=== PATIENT | male | born 1940 | race Caucasian/White ===

== ENCOUNTER 2016-10-09 07:56 | Inpatient (IN) | payer MEDICARE, BC ==
[~2016-10-09 07:56] MED LIST: Bacitracin IV* 50,000 UNITS INJ ONE; Buffered Lidocaine 0.9% SYRIN* 5 ML/SYR SYRINGE INTRADERM ONE; Dexamethasone IV* 4 MG/ML 1 ML (4 MG) IV SLOW PU ONE; Famotidine IV* 10 MG/ML 2 ML (20 mg) IV ONE; Lidocaine 1.5% EPI 1:200,000* 30 ML SDV ONE; Thrombin 5,000 UNITS* 1 APPLIC KIT - topical use - TOPICAL ONE
[2016-10-09] MEDS ORDERED: ceFAZolin 2 GM PREMIX(*) 2 GM/50 ML BAG IVPB ONE (08:17)
[2016-10-09] MEDS ORDERED: Dexamethasone IV* 4 MG/ML 1 ML (4 MG) ONE (08:17)
[2016-10-09] MEDS ORDERED: Famotidine IV* 10 MG/ML 2 ML (20 mg) ONE (08:17)
[2016-10-09] MEDS ORDERED: Buffered Lidocaine 0.9% SYRIN* 5 ML/SYR SYRINGE ONE (08:17)
[2016-10-09] MEDS ORDERED: Succinylcholine* 20 MG/ML 10 ML VIAL ONE (10:52)
[2016-10-09] MEDS ORDERED: Lidocaine 1% INJ* 10 MG/ML 30 ML SDV ONE (10:52)
[2016-10-09] MEDS ORDERED: Propofol* 10 MG/ML 20 ML BTL IV PUSH ONE (10:56)
[2016-10-09] MEDS ORDERED: Ondansetron INJ* 2 MG/ML VIAL ONE (10:56)
[2016-10-09] MEDS ORDERED: fentaNYL* 50 MCG/ML 2 ML VIAL (100 MCG VIAL) ONE (11:02)
[2016-10-09] MEDS ORDERED: Midazolam* 1 MG/ML 2 ML VIAL (2 MG) ONE (11:02)
[2016-10-09] MEDS ORDERED: DiMENhydriNATE IV* 50 MG/ML VIAL IV PUSH PRN (12:09)
[2016-10-09] MEDS ORDERED: fentaNYL* 50 MCG/ML 2 ML VIAL (100 MCG VIAL) IV PRN (12:09)
[2016-10-09] MEDS ORDERED: Phenylephrine IV* 40 MCG/ML 10 ML SYRINGE ONE (12:28)
[2016-10-09] MEDS ORDERED: EPHEDrine (Pressors)* 50 MG/ML VIAL ONE (12:28)
[2016-10-09] MEDS ORDERED: Glycopyrrolate IV* 0.2 MG/ML 1 ML VIAL ONE (12:28)
[2016-10-09] MEDS ORDERED: Thrombin 5,000 UNITS* 1 APPLIC KIT - topical use - TOPICAL ONE (12:33)
[2016-10-09] MEDS ORDERED: HYDROcodone/ACETAMIN 5-325 MG* 1 TAB PO PRN (12:55)
[2016-10-09] MEDS ORDERED: Ondansetron INJ* 2 MG/ML VIAL IV PRN (12:55)
[2016-10-09] MEDS ORDERED: Albuterol HFA INHALER* 8 gm MDI INH PRN (13:00)
[2016-10-09] MEDS ORDERED: Albuterol 2.5 MG/3 ML NEB.SOL* (0.083%) INH PRN (14:29)
--- NOTE | 2016-10-09 14:49 | RAD ---
INDICATION: Operative control films. Lumbar laminectomy L1-L2 COMPARISON: MRI lumbar spine August 28, 2016 TECHNIQUE/FINDINGS: 2 lateral images obtained with crosstable lateral technique show retractors and a metallic probe at the L1-L2 level.
[2016-10-09] MEDS ORDERED: Torsemide TAB* 20 MG PO SCH (18:00)
[2016-10-09] MEDS: Atorvastatin* 80 MG TAB PO SCH (18:16)
[2016-10-09] MEDS: Albuterol/Ipratropium NEB.SOL* Albuterol 2.5 MG/Ipratropium 0.5 MG 3 ML INH SCH ×3 (18:19→23:17)
--- NOTE | 2016-10-09 22:12 | CONS ---
CC: Dr. Fong; Dr. Mendoza * CONSULTATION REPORT: DATE OF CONSULT: 10/09/16 PRIMARY CARE PROVIDER: Dr. Fong. REQUESTING PHYSICIAN FOR CONSULTATION: Dr. Mendoza. ATTENDING PHYSICIAN: Dr. Lawson (dictated by Luis Mederos NP) REASON FOR MEDICAL CONSULTATION: Evaluation and medical management of comorbid medical conditions. HISTORY OF PRESENT ILLNESS: Mr. Benjamin is a 75-year-old male patient who has had chronic back pain for sometime. He sought care with Dr. Mendoza and ultimately it was felt that he would benefit from a decompressive laminectomy, which he underwent today. He underwent an L1-L2 laminectomy. He was evaluated in the PACU. He does not appear to be in acute distress. He says he is feeling well. He denies having any chest pain or shortness of breath. Denies any abdominal discomfort. He says he does not feel nauseous. He states he just feels a little drowsy. Last thing he remembers was going through the big doors into the OR. He denies having any shortness of breath and he said he is pretty comfortable, not having any back pain. He does carry a history of CAD, diastolic heart failure, hypertension, hyperlipidemia, JULIANE, hypothyroidism, chronic back pain, spinal stenosis, lymphedema, CKD and a history of COPD. Because of this, we were asked to evaluate and consult. PAST MEDICAL HISTORY: Significant for: 1. CAD. 2. CHF. 3. Hypertension. 4. Hyperlipidemia. 5. JULIANE. 6. Hypothyroidism. 7. Chronic back pain. 8. Spinal stenosis. 9. Lymphedema. 10. CKD. 11. Questionable history of COPD. PAST SURGICAL HISTORY: 1. He has had a CABG. 2. Laminectomy. 3. Tonsillectomy. 4. Kidney stone extraction. HOME MEDICATIONS: Include: 1. Amlodipine 10 mg daily. 2. Demadex 40 mg at bedtime, 60 mg in the morning. 3. Crestor 40 mg a day. 4. Metoprolol 50 mg p.o. daily. 5. Lisinopril 20 mg daily. 6. Synthroid mcg daily. 7. Aspirin 81 mg daily. 8. Ventolin 1 puff inhaled every 6 hours as needed. 9. Tylenol 500 mg every 8 hours as needed. ALLERGIES TO MEDICATIONS: Include MORPHINE. FAMILY HISTORY: His mother had a history of colon cancer, at 95. Father at 57 of unknown reason. SOCIAL HISTORY: He does not smoke, does not drink. Surrogate decision maker is . REVIEW OF SYSTEMS: There is no documented fever. He denied having any significant weight change. There was no double vision. He denies having any ear discharge. There was no rhinorrhea. No sore throat. No thyroid enlargement. Denies having any chest pain. There is no orthopnea. He denies having any nocturnal dyspnea. There was no abdominal pain, no nausea, no vomiting. There is no dysuria, no frequency. There is no seizure. No loss of consciousness. No pruritus, no skin ulcerations. Review of 14 systems completed, all others negative. PHYSICAL EXAMINATION: Blood pressure 140/67, pulse 69, respirations 16, O2 sat 96%, and temperature 98.8. General: At this time, Mr. Benjamin is a 75-year-old male patient. He is morbidly obese. He is sitting in the PACU. He does not appear to be in any acute distress. HEENT: Head is atraumatic and normocephalic. Eyes: EOMs are intact. Sclerae anicteric. Neck: Supple. Throat: Oral mucosa appeared to be dry. No oropharyngeal erythema. Heart: Sounds S1, S2. Regular rate and rhythm. No murmurs, rubs, or gallops. Lungs: He did have wheezing in the lower lobes. He had equal diaphragmatic expansion. His abdomen was soft, flat, nontender. Bowel sounds present. Extremities: Pulses 2+ throughout. He is able to move all 4 extremities with 5 /5 strength. Neurologically, the patient is awake. He is alert. He is oriented x3. His tongue is midline. Nuclear Physician were equal. He had no gross focal deficits. The skin is intact with exception to the lower lumbar spinal area, he did have a dressing and a RUSH drain, which is clean, dry, and intact. LABORATORY DATA/DIAGNOSTIC STUDIES: Labs preop revealed WBC 9.1, RBC of 3.99, hemoglobin 11.6, hematocrit 35, platelet count of 157. His sodium was 139, potassium 4.7, chloride of 105, bicarb 28, BUN 30, creatinine of 1.43, right near his baseline, glucose was 82. He did have a preop echo, which was read as unchanged from previous echo. He did have an EKG, which showed a sinus rhythm with a first degree AV block and he had what appeared to be a left bundle-branch block, appears to be similar when compared to the previous EKGs. It appears to be similar with the exception that there is no longer T wave inversions. Old medical records were reviewed. ASSESSMENT AND PLAN: Mr. Benjamin is a 75-year-old male patient presenting to Dr. Mendoza's service today for an elective laminectomy. We were asked to evaluate in consult. Recommendations at this point are: 1. Status post laminectomy to L1-L2. I will defer the management to Dr. Mendoza and his team. 2. History of coronary artery disease. Continue his medications as prescribed , his beta-alba and his statin. I would start his aspirin as soon as it is deemed safe by neurosurgical services. 3. Congestive heart failure. He does not appear to be in failure. We will monitor him. I will go ahead and continue his Demadex tomorrow. 4. Hypertension. Continue meds as prescribed. His blood pressure is in the 140s right now. We will continue all meds. 5. Hyperlipidemia. Continue statin therapy. 6. Obstructive sleep apnea. We will put him on pulse ox overnight for 24 hours and then in addition to this, I have ordered a CPAP. 7. Hypothyroidism. Continue Synthroid. 8. Chronic back pain, spinal stenosis. I will defer the management to Dr. Mendoza and his team. 9. Lymphedema. Continue his current medical regimen. He does wear lymphedema pump. 10. Chronic kidney disease. His creatinine appears to be stable. 11. History of chronic obstructive pulmonary disease. I did order standing nebs as he is wheezing on exam and I did order incentive spirometry for aggressive pulmonary toileting. We will continue to follow this closely. 12. DVT prophylaxis. We will defer to the primary team. 13. Fluids, electrolytes, and nutrition. I would recommend a heart healthy diet. 14. Code status. Full code. TIME SPENT: Time spent on consult 60 minutes, greater than half that time was spent [id number] with the patient obtaining my history and physical, the other half time was spent going over plan of care with the patient and implementing the plan of care. I did discuss the plan of care with my attending, Dr. Lwason, who is in agreement. LUIS MEDEROS NP [id number]/[facility] #: [id number] [facility]ENT[facility]st[facility]
[2016-10-10] MEDS: Acetaminophen TAB* 325 MG PO PRN ×3 (01:39→19:03)
[2016-10-10] MEDS: Albuterol/Ipratropium NEB.SOL* Albuterol 2.5 MG/Ipratropium 0.5 MG 3 ML INH SCH ×3 (03:19→11:23)
[2016-10-10] MEDS: Levothyroxine TAB* 25 MCG TAB PO SCH (05:50)
--- NOTE | 2016-10-10 08:06 | PN ---
Progress Note - Progress Note Date of Service: 10/10/16 SOAP: Subjective: [This is a 75 year old male s/p decompressive lumbar laminectomy L1-2, POD #1. He is feeling well this morning. He is ambulating well without pain in the lower extremities. He is eating, drinking and voiding without difficulty. He reports mild discomfort at the incision site. ] Objective: [ Vital Signs: Temp Pulse Resp BP Pulse Ox 97.6 F 88 15 145/73 97 10/10/16 03:29 10/10/16 07:10 10/10/16 07:10 10/10/16 03:29 10/10/16 07:10 General: Alert and oriented. Sitting up in chair. Neuro: Motor and sensory intact. Incision: Intact with eliud. No infection or swelling. RUSH in place. RUSH drain output 10/09/16 10/09/16 10/09/16 14:45 15:00 16:47 Output, RUSH #1 25 10 65 10/09/16 10/09/16 10/09/16 17:51 20:28 21:59 Output, RUSH #1 45 50 50 10/10/16 10/10/16 10/10/16 01:30 03:00 05:52 Output, RUSH #1 60 30 25 ] Assessment: [Satisfactory post-op course. He requires further monitoring for RUSH drain output today. Probable discharge home tomorrow.] Plan: [1. Continue pain management 2. Encourage ambulation ]
[2016-10-10] MEDS: amLODIPine TAB* 5 MG PO SCH (09:22)
[2016-10-10] MEDS: Torsemide TAB* 20 MG PO SCH (09:22)
[2016-10-10] MEDS: Levothyroxine TAB* 100 MCG TAB PO SCH (09:22)
[2016-10-10] MEDS: Aspirin EC Low Dose* 81 MG TAB.EC PO SCH (09:22)
[2016-10-10] MEDS: Metoprolol Succinate XL TAB* 50 MG PO SCH (09:22)
[2016-10-10] MEDS: Lisinopril TAB* 10 MG PO SCH (09:22)
--- NOTE | 2016-10-10 15:04 | PN ---
Subjective Date of Service: 10/10/16 Interval History: Patient seen and examined at bedside. Pt states that his pain is controlled and he is feeling well. Denies fever, chills, shortness of breath, chest discomfort , N/V/D. Family History: Unchanged from Admission Social History: Unchanged from Admission Past Medical History: Unchanged from Admission Objective Active Medications: Acetaminophen (Tylenol Tab*) 650 mg PO Q4H PRN Reason: PAIN Hydrocodone Bitart/Acetaminophen ([place] 5-325 Tab*) 2 tab PO Q4H PRN Reason: marked pain Albuterol (Ventolin Hfa Inhaler*) 1 puff INH Q6H PRN Reason: SHORTNESS OF BREATH Albuterol (Ventolin 2.5 Mg/3 Ml Neb.Radha*) 2.5 mg INH Q2H PRN Reason: SOB/ WHEEZING Amlodipine Besylate (Norvasc Tab*) 10 mg PO QAM REPLACED BY [facility] Aspirin (Aspirin Ec Low Dose*) 81 mg PO QAM REPLACED BY [facility] Atorvastatin Calcium (Lipitor*) 80 mg PO QPM REPLACED BY [facility] Levothyroxine Sodium (Synthroid Tab*) 300 mcg PO QAM REPLACED BY [facility] Levothyroxine Sodium (Synthroid Tab*) 25 mcg PO DAILY@0600 REPLACED BY [facility] Lisinopril (Prinivil Tab*) 20 mg PO QAM REPLACED BY [facility] Metoprolol Succinate (Toprol Xl Tab*) 50 mg PO QAM REPLACED BY [facility] Ondansetron HCl (Zofran Inj*) 4 mg IV Q6H PRN Reason: NAUSEA/VOMITING Torsemide (Demadex*) 60 mg PO QAM REPLACED BY [facility] Torsemide (Demadex*) 40 mg PO QPM REPLACED BY [facility] Vital Signs 10/09/16 10/09/16 10/09/16 15:00 15:20 15:25 Temperature 97.6 F Pulse Rate 70 71 Respiratory 19 16 16 Rate Blood Pressure 157/67 146/65 (mmHg) O2 Sat by Pulse 96 95 Oximetry 10/09/16 10/09/16 10/09/16 16:31 17:31 19:35 Temperature 97.4 F 97.6 F Pulse Rate 75 76 78 Respiratory 18 18 20 Rate Blood Pressure 150/68 145/62 (mmHg) O2 Sat by Pulse 100 95 98 Oximetry 10/09/16 10/09/16 10/09/16 19:38 19:50 21:45 Temperature 97.6 F Pulse Rate 76 77 85 Respiratory 20 18 18 Rate Blood Pressure 149/61 128/86 (mmHg) O2 Sat by Pulse 98 98 95 Oximetry 10/09/16 10/10/16 10/10/16 23:17 00:07 03:20 Temperature 97.9 F Pulse Rate 70 90 77 Respiratory 20 20 20 Rate Blood Pressure 157/63 (mmHg) O2 Sat by Pulse 96 93 94 Oximetry 10/10/16 10/10/16 10/10/16 03:29 07:10 07:19 Temperature 97.6 F 97.9 F Pulse Rate 93 88 87 Respiratory 18 15 16 Rate Blood Pressure 145/73 126/52 (mmHg) O2 Sat by Pulse 97 97 93 Oximetry 10/10/16 10/10/16 08:50 12:04 Temperature 98.0 F Pulse Rate 84 Respiratory 16 14 Rate Blood Pressure 137/60 (mmHg) O2 Sat by Pulse 93 94 Oximetry Oxygen Devices in Use Now: None Appearance: NAD, laying in bed Ears/Nose/Mouth/Throat: Mucous Membranes Moist Respiratory: Symmetrical Chest Expansion and Respiratory Effort, Clear to Auscultation Cardiovascular: NL Sounds; No Murmurs; No JVD, RRR Abdominal: NL Sounds; No Tenderness; No Distention Extremities: - - Bilateral LE edema Skin: No Rash or Ulcers Neurological: Alert and Oriented x 3, NL Muscle Strength and Tone Lines/Tubes/Other Access: Clean, Dry and Intact Peripheral IV - site benign Nutrition: Taking PO's Result Diagrams: 10/09/16 13:14 Assess/Plan/Problems-Billing Assessment: Mr. Benjamin is a 75 yo male with PMH significant for CAD, CHF, HTN, HLD, JULIANE, hypothyroidism, lymphedema, CKD and chronic pain pain secondary to spinal stenosis who presented to the hospital for an elective L1-[address] Mendoza. - Patient Problems (1) Lumbar stenosis Code(s): M48.06 - SPINAL STENOSIS, LUMBAR REGION SNOMED Code(s): 36256223 Comment: - S/P L1-2 laminectomy - Management per surgery - Continue pain management (2) CAD (coronary artery disease) Code(s): I25.10 - ATHSCL HEART DISEASE OF [place] CORONARY ARTERY W/O ANG PCTRS SNOMED Code(s): 96660283 Comment: - Stable. - Continue Aspirin, metoprolol and statin. (3) Diastolic CHF Code(s): I50.30 - UNSPECIFIED DIASTOLIC (CONGESTIVE) HEART FAILURE SNOMED Code (s): 457273427 Comment: - Stable. - Continue Lisinopril and Torsemide. (4) HTN (hypertension) Code(s): I10 - ESSENTIAL (PRIMARY) HYPERTENSION SNOMED Code(s): 23414393 Comment: - Normotensive - Continue amlodipine and lisinopril (5) HLD (hyperlipidemia) Code(s): E78.5 - HYPERLIPIDEMIA, UNSPECIFIED SNOMED Code(s): 82412401 Comment: - Continue statin (6) JULIANE (obstructive sleep apnea) Code(s): G47.33 - OBSTRUCTIVE SLEEP APNEA (ADULT) (PEDIATRIC) SNOMED Code(s): 79869527 Comment: - Continue home CPAP (7) Hypothyroidism Code(s): E03.9 - HYPOTHYROIDISM, UNSPECIFIED SNOMED Code(s): 95502019 Comment: - Continue synthroid (8) Lymphedema Code(s): I89.0 - LYMPHEDEMA, NOT ELSEWHERE CLASSIFIED SNOMED Code(s): 506650934 Comment: - Resume lymphedema pump at discharge (9) CKD (chronic kidney disease) Code(s): N18.9 - CHRONIC KIDNEY DISEASE, UNSPECIFIED SNOMED Code(s): 384040478 Comment: - Stage 3 - Creatinine appears to be at baseline (10) COPD (chronic obstructive pulmonary disease) Code(s): J44.9 - CHRONIC OBSTRUCTIVE PULMONARY DISEASE, UNSPECIFIED SNOMED Code(s): 30601641 Comment: - Albuterol nebs or inhaler PRN - Continue Incentive Spirometer (11) DVT prophylaxis Code(s): HHQ0460 - SNOMED Code(s): 285510084 Comment: - SCDs (12) Full code status Code(s): Z78.9 - OTHER SPECIFIED HEALTH STATUS SNOMED Code(s): 082126297 Status and Disposition: OBV to Inpatient. Disposition per Surgery.
[2016-10-10] MEDS ORDERED: Torsemide TAB* 20 MG PO SCH (18:00)
[2016-10-10] MEDS: Atorvastatin* 80 MG TAB PO SCH (18:05)
[2016-10-11 04:11] VITALS: BP 133/64
--- NOTE | 2016-10-11 04:18 | OP ---
AMENDED REPORT NOW INCLUDES DATE OF OPERATION - ESIGNED BEFORE ADJUSTMENT * DATE OF OPERATION: 10/09/16 - ROOM #333 DATE OF : 36 SURGEON: Nav Mendoza MD STUDENT NURSE: SHANNAN Tay. ANESTHESIOLOGIST: Huang Bob MD ANESTHESIA: General. PRE-OP DIAGNOSIS: Lumbar spinal stenosis, L1-2. POST-OP DIAGNOSIS: Lumbar spinal stenosis, L1-2. OPERATIVE PROCEDURE: Decompressive lumbar laminectomy, L1-2. DESCRIPTION OF PROCEDURE: After satisfactory general anesthesia was obtained, the patient was placed on the operating table in a prone position with the chest supported on the Giorgio frame and the back slightly flexed. The lumbar region was then clipped, prepped, and draped in a sterile manner for a lumbar laminectomy, and a skin incision outlined from L1 to L3. This incision was infiltrated with 1% Xylocaine with epinephrine after which it was turned in sharply to the level of the lumbar fascia. The fascia was divided along the spinous processes of L1 and L2 and the paraspinous musculature stripped away from these posterior elements. An intraoperative x-ray was obtained verifying proper interspace localization after which a decompression was carried out by first removing the spinous processes of L1 and L2 with a Kerrison rongeur. The remaining portion of the base of the spinous process of L1 and inferior aspect of the lamina was then thinned out with a Midas Jimmie drill and a decompression carried out with a Kerrison rongeur. This was carried superiorly until the attachment of the ligamentum flavum was taken down. Epidural venous bleeding was significant and was controlled with temporary Gelfoam. Ultimately, a decompression was carried out until both of the L2 nerve roots were free in their course. The pathology at this level was mostly that of thickened ligamentum and bony hypertrophy. After showing adequate hemostasis, the decompressive defect was covered with Gelfoam after which a drain was placed in the epidural space and tunneled out toward the left side. The fascia was then reapproximated with 0 Vicryl suture and the subcutaneous tissue was closed with 3-0 Vicryl suture, and the skin closed with skin clips. The estimated blood loss was 300 cc, and final sponge, padding, and needle counts were correct. The patient was taken to the recovery room, extubated and in stable condition. [id number]/[facility] #: [id number] ORIGINAL ESIGN DATE/TIME: 10/11/16 0543 MTDD
[2016-10-11] MEDS: Levothyroxine TAB* 25 MCG TAB PO SCH (06:10)
--- NOTE | 2016-10-11 09:06 | PN ---
Progress Note - Progress Note Date of Service: 10/11/16 SOAP: Subjective: []POD # 2 Doing well,up inchair Pain much better Objective: []Drainage decreased,drain removed Wound intact Neuro intact Assessment: []Satis post op course Plan: []D/C today D/C Instructions given
[2016-10-11] MEDS: amLODIPine TAB* 5 MG PO SCH (09:08)
[2016-10-11] MEDS: Torsemide TAB* 20 MG PO SCH (09:09)
[2016-10-11] MEDS: Aspirin EC Low Dose* 81 MG TAB.EC PO SCH (09:09)
[2016-10-11] MEDS: Levothyroxine TAB* 100 MCG TAB PO SCH (09:10)
[2016-10-11] MEDS: Lisinopril TAB* 10 MG PO SCH (09:11)
[2016-10-11] MEDS: Metoprolol Succinate XL TAB* 50 MG PO SCH (09:12)
--- NOTE | 2016-10-11 09:23 | PN ---
Subjective Date of Service: 10/11/16 Interval History: Patient seen and examined at bedside. Pt states that he is feeling well this morning and denies pain. Denies fever, chills, shortness of breath, chest discomfort, N/V/D. Pt has been up and ambulating around in his room. Family History: Unchanged from Admission Social History: Unchanged from Admission Past Medical History: Unchanged from Admission Objective Active Medications: Acetaminophen (Tylenol Tab*) 650 mg PO Q4H PRN Reason: PAIN Hydrocodone Bitart/Acetaminophen ([place] 5-325 Tab*) 2 tab PO Q4H PRN Reason: marked pain Albuterol (Ventolin Hfa Inhaler*) 1 puff INH Q6H PRN Reason: SHORTNESS OF BREATH Albuterol (Ventolin 2.5 Mg/3 Ml Neb.Radha*) 2.5 mg INH Q2H PRN Reason: SOB/ WHEEZING Amlodipine Besylate (Norvasc Tab*) 10 mg PO QAM [facility] Aspirin (Aspirin Ec Low Dose*) 81 mg PO QAM [facility] Atorvastatin Calcium (Lipitor*) 80 mg PO QPM [facility] Levothyroxine Sodium (Synthroid Tab*) 300 mcg PO QAM [facility] Levothyroxine Sodium (Synthroid Tab*) 25 mcg PO DAILY@0600 [facility] Lisinopril (Prinivil Tab*) 20 mg PO QAM [facility] Metoprolol Succinate (Toprol Xl Tab*) 50 mg PO QAM [facility] Ondansetron HCl (Zofran Inj*) 4 mg IV Q6H PRN Reason: NAUSEA/VOMITING Torsemide (Demadex*) 60 mg PO QAM [facility] Torsemide (Demadex*) 40 mg PO QPM [facility] Vital Signs 10/10/16 10/10/16 10/10/16 12:04 15:24 19:13 Temperature 98.0 F 97.8 F Pulse Rate 84 73 Respiratory 14 18 19 Rate Blood Pressure 137/60 140/64 (mmHg) O2 Sat by Pulse 94 94 Oximetry 10/10/16 10/10/16 10/10/16 19:19 19:40 23:28 Temperature 98.0 F 97.9 F Pulse Rate 61 73 65 Respiratory 16 19 20 Rate Blood Pressure 127/50 139/65 (mmHg) O2 Sat by Pulse 94 96 94 Oximetry 10/11/16 10/11/16 04:03 06:11 Temperature 97.6 F Pulse Rate 57 Respiratory 18 15 Rate Blood Pressure 133/64 (mmHg) O2 Sat by Pulse 98 Oximetry Oxygen Devices in Use Now: None Appearance: NAD, sitting up in a chair Eyes: PERRLA Ears/Nose/Mouth/Throat: Mucous Membranes Moist Respiratory: Symmetrical Chest Expansion and Respiratory Effort, Clear to Auscultation Cardiovascular: NL Sounds; No Murmurs; No JVD, RRR Abdominal: NL Sounds; No Tenderness; No Distention Extremities: - - Bilateral LE edema Neurological: Alert and Oriented x 3, NL Muscle Strength and Tone Lines/Tubes/Other Access: Clean, Dry and Intact Peripheral IV - site benign Nutrition: Taking PO's Result Diagrams: 10/10/16 19:39 Assess/Plan/Problems-Billing Assessment: Mr. Benjamin is a 75 yo male with PMH significant for CAD, CHF, HTN, HLD, JULIANE, hypothyroidism, lymphedema, CKD and chronic pain pain secondary to spinal stenosis who presented to the hospital for an elective L1-[address] Mendoza. - Patient Problems (1) Lumbar stenosis Code(s): M48.06 - SPINAL STENOSIS, LUMBAR REGION SNOMED Code(s): 96238128 Comment: - S/P L1-2 laminectomy, POD #2 - Management per surgery - Continue pain management (2) CAD (coronary artery disease) Code(s): I25.10 - ATHSCL HEART DISEASE OF [place] CORONARY ARTERY W/O ANG PCTRS SNOMED Code(s): 67091342 Comment: - Stable. - Continue Aspirin, metoprolol and statin. (3) Diastolic CHF Code(s): I50.30 - UNSPECIFIED DIASTOLIC (CONGESTIVE) HEART FAILURE SNOMED Code (s): 605050351 Comment: - Stable. - Continue Lisinopril and Torsemide. (4) HTN (hypertension) Code(s): I10 - ESSENTIAL (PRIMARY) HYPERTENSION SNOMED Code(s): 36907701 Comment: - Normotensive - Continue amlodipine and lisinopril (5) HLD (hyperlipidemia) Code(s): E78.5 - HYPERLIPIDEMIA, UNSPECIFIED SNOMED Code(s): 95401940 Comment: - Continue statin (6) JULIANE (obstructive sleep apnea) Code(s): G47.33 - OBSTRUCTIVE SLEEP APNEA (ADULT) (PEDIATRIC) SNOMED Code(s): 68217906 Comment: - Continue home CPAP (7) Hypothyroidism Code(s): E03.9 - HYPOTHYROIDISM, UNSPECIFIED SNOMED Code(s): 76420097 Comment: - Continue synthroid (8) Lymphedema Code(s): I89.0 - LYMPHEDEMA, NOT ELSEWHERE CLASSIFIED SNOMED Code(s): 729035429 Comment: - Resume lymphedema pump at discharge (9) CKD (chronic kidney disease) Code(s): N18.9 - CHRONIC KIDNEY DISEASE, UNSPECIFIED SNOMED Code(s): 594876421 Comment: - Stage 3 - Creatinine appears to be at baseline (10) COPD (chronic obstructive pulmonary disease) Code(s): J44.9 - CHRONIC OBSTRUCTIVE PULMONARY DISEASE, UNSPECIFIED SNOMED Code(s): 44076747 Comment: - Albuterol nebs or inhaler PRN - Continue Incentive Spirometer (11) DVT prophylaxis Code(s): NWK8624 - SNOMED Code(s): 467015393 Comment: - SCDs (12) Full code status Code(s): Z78.9 - OTHER SPECIFIED HEALTH STATUS SNOMED Code(s): 260242274 Status and Disposition: Inpatient. Disposition per Surgery. Thank you for this consultation, will sign off at this time.
== END 2016-10-11 10:00 | disposition home or self-care (01) | DRG 516 ==
LOC: OR 07:56 → SSU 12:55 → OBSVTOIN 10-10 14:58
PROVIDERS: ADMIT Neurological Surgery; ATTEND Neurological Surgery
PROC: 01NB0ZZ Release Lumbar Nerve, Open Approach (ICD-10-PCS; principal; 2016-10-10)
DX: M48.06 Spinal stenosis, lumbar region (principal); I13.0 Hypertensive heart and chronic kidney disease with heart failure and stage 1 through stage 4 chronic kidney disease, or unspecified chronic kidney disease; I50.32 Chronic diastolic (congestive) heart failure; J44.9 Chronic obstructive pulmonary disease, unspecified; I25.10 Atherosclerotic heart disease of native coronary artery without angina pectoris; N18.9 Chronic kidney disease, unspecified; Z95.1 Presence of aortocoronary bypass graft; E78.5 Hyperlipidemia, unspecified; G47.33 Obstructive sleep apnea (adult) (pediatric); E03.9 Hypothyroidism, unspecified; M54.9 Dorsalgia, unspecified; Z79.1 Long term (current) use of non-steroidal anti-inflammatories (NSAID); Z79.82 Long term (current) use of aspirin; Z79.899 Other long term (current) drug therapy; Z88.5 Allergy status to narcotic agent; Z80.0 Family history of malignant neoplasm of digestive organs; I44.0 Atrioventricular block, first degree; I44.7 Left bundle-branch block, unspecified
CPT/HCPCS: 36415; 72100; 80048; 85014; 85025; 94640; A9270-GY; G0378; J0330; J0690; J1100; J2001; J2250; J2405; J2704; J3010

== ENCOUNTER 2017-03-11 11:39 | Inpatient (IN) | payer MEDICARE, BC ==
[2017-03-11] MEDS ORDERED: Albuterol 2.5 MG/3 ML NEB.SOL* (0.083%) INH ONE (12:06)
[2017-03-11] MEDS ORDERED: Acetaminophen TAB* 325 MG PO ONE (12:54)
--- NOTE | 2017-03-11 13:47 | RAD ---
HISTORY: Right leg edema, trauma COMPARISONS: None VIEWS: 6, Frontal and lateral views of the right femur FINDINGS: BONE DENSITY: Normal. BONES: There is no displaced fracture. JOINTS: There is osteoarthritis of the right hip and knee. ALIGNMENT: There is no dislocation. SOFT TISSUES: There is extensive soft tissue swelling. OTHER FINDINGS: None. IMPRESSION: NO ACUTE OSSEOUS INJURY. IF SYMPTOMS PERSIST, RECOMMEND REPEAT IMAGING.
--- NOTE | 2017-03-11 13:48 | RAD ---
HISTORY: Right foot pain, trauma COMPARISONS: None VIEWS: 4, Frontal, lateral, and oblique views of the right foot FINDINGS: Study is technically limited. BONE DENSITY: There is diffuse osteopenia. BONES: There is no displaced fracture. There are calcaneal enthesophytes. JOINTS: There is osteoarthritis of the midfoot and forefoot. ALIGNMENT: There is no dislocation. SOFT TISSUES: Unremarkable. OTHER FINDINGS: None. IMPRESSION: 1. LIMITED STUDY. 2. OSTEOPENIA. 3. OSTEOARTHRITIS. 4. NO ACUTE OSSEOUS INJURY. IF SYMPTOMS PERSIST, RECOMMEND REPEAT IMAGING
--- NOTE | 2017-03-11 13:50 | RAD ---
Indication: Fall, hip pain. Single view of the pelvis demonstrates no fracture. The study is extremely limited as the iliac crests are not present on the film. This is likely due to body habitus. IMPRESSION: No fracture of the pelvis is noted although the study is limited.
--- NOTE | 2017-03-11 13:52 | RAD ---
Indication: Right lower leg pain. 2 views of the right lower leg are reviewed. The tibia and fibula are grossly unremarkable. There may be some cortical thickening in the midshaft of the tibia. IMPRESSION: Cortical thickening mid shaft of the tibia. No definite fracture is noted.
--- NOTE | 2017-03-11 13:54 | RAD ---
INDICATION: Trauma. COMPARISON: Comparison is made with a prior chest x-ray study from April 21, 2014. TECHNIQUE: AP and lateral views of the chest were obtained. FINDINGS: The patient is status post coronary artery bypass surgery. Note is made of multiple sternal sutures. The heart appears moderately enlarged. The lungs are hyperinflated and clear. No pleural effusion or pneumothorax is seen. IMPRESSION: POSTSURGICAL CHANGES AND FINDINGS CONSISTENT WITH COPD, NO EVIDENCE FOR ACUTE FINDING.
[2017-03-11] MEDS ORDERED: methylPREDNISolone 125 MG* 2 ML VIAL IV ONE (14:09)
[2017-03-11] MEDS ORDERED: Albuterol/Ipratropium NEB.SOL* Albuterol 2.5 MG/Ipratropium 0.5 MG 3 ML INH ONE (14:13)
[2017-03-11] MEDS ORDERED: Tetan/Diph/Pertus SYR(Tdap)* 0.5 ML SYR(BOOSTRIX) use SYR IM ONE (14:13)
--- NOTE | 2017-03-11 14:18 | RAD ---
INDICATION: RIGHT lower extremity edema. COMPARISON: September 23, 2015 TECHNIQUE: Chanel scale, color Doppler, and spectral analysis of the deep veins of the RIGHT lower extremity. Vessel compression, phasicity, and augmentation assessed. REPORT: The RIGHT common femoral, great saphenous, profunda femoral, femoral, popliteal, and posterior tibial veins are patent. The RIGHT peroneal veins could not be visualized with large body habitus limiting assessment. Patency of the LEFT common femoral vein documented. IMPRESSION: No evidence for RIGHT lower extremity deep venous thrombosis. Exam is mildly limited due to nonvisualization of the peroneal veins.
[2017-03-11 14:50] LABS: INR 1.07 (0.77-1.02)
[2017-03-11 14:51] LABS: ABS Basophils 0.1 10^3/ul (0-0.2); ABS Eosinophils 0.1 10^3/ul (0-0.6); ABS Lymphocytes 1.8 10^3/ul (1.0-4.8); ABS Neutrophils 8.2 10^3/ul (1.5-7.7); ABS Nucleated RBC 0 10^3/ul; Eosinophil % 0.7 % (0-6); Hematocrit 37 % (42-52); Hemoglobin 11.8 g/dl (14.0-18.0); Lymphocyte % 16.1 % (25-47); Mean Corpuscular HGB Conc 32 g/dl (31-36); Mean Corpuscular Hemoglobin 28 pg (27-31); Mean Corpuscular Volume 88 fL (80-94); Mean Platelet Volume 8 um3 (7.4-10.4); Nucleated Red Blood Cells % 0; Platelet Count 196 10^3/ul (150-450); Red Blood Count 4.17 10^6/ul (4.0-5.4); Red Cell Distribution Width 15 % (10.5-15); White Blood Count 11.2 10^3/ul (3.5-10.8)
[2017-03-11 15:03] LABS: EGFR Non-African American 38.9 (>60)
[2017-03-11] MEDS ORDERED: Clindamycin 900 MG IVPREMIX(* 900 MG/50 ML SDV IV ONE (15:47)
[2017-03-11] MEDS ORDERED: Albuterol 2.5 MG/3 ML NEB.SOL* (0.083%) INH PRN (16:36)
[2017-03-11] MEDS ORDERED: Ondansetron INJ* 2 MG/ML VIAL IV PRN (16:36)
--- NOTE | 2017-03-11 16:59 | ED ---
Jarvis Ortiz Tecjoon, scribed for Eduin Cervantes MD on 03/11/17 at 1219 . Lower Extremity - HPI Summary HPI Summary: This patient is a 76 year old BIBA to [facility] accompanied by with a chief complaint of right leg and hip pain s/p a fall at approx. 0930 today. Patient states he tripped and stubbed his right toe and is having trouble walking up stairs. Patient denies LOC or head trauma. Patient has an abrasion on his right toe. The pain is rated 8/10 in severity. Symptoms aggravated by nothing. Symptoms alleviated by nothing. Patient also has a hx of lymphedema in right leg and left arm. Patient additionally reports, wheezing, SOB. The patient states that his leg cannot handle his weight and that he cant lift leg. - History of Current Complaint Chief Complaint: EDExtremityLower Stated Complaint: FALL Time Seen by Provider: 03/11/17 12:11 Hx Obtained From: Patient Mechanism Of Injury: Fall From A Standing Position Onset of Pain: Immediate Onset/Duration: Hours Severity Currently: Severe Pain Intensity: 8 Pain Scale Used: 0-10 Numeric Timing: Constant Location: Is Discrete @ - right hip, right foot Associated Signs And Symptoms: Positive: Negative - LOC, head trauma, Other - abrasion on right toe, wheezing, SOB Aggravating Factor(s): Nothing Alleviating Factor(s): Nothing - Allergies/Home Medications Allergies/Adverse Reactions: Allergies Allergy/AdvReac Type Severity Reaction Status Date / Time Morphine AdvReac Intermediate Altered Verified 12/30/16 14:17 Mental Status Home Medications: Home Medications Aspirin EC Low Dose* [Ecotrin EC Low Dose 81 MG*] 81 mg PO DAILY 03/11/17 [ History Confirmed 03/11/17] Gabapentin CAP(*) [Neurontin 300 CAP(*)] 300 mg PO BID 03/11/17 [History Confirmed 03/11/17] Lisinopril TAB* [Prinivil TAB*] 20 mg PO DAILY 03/11/17 [History Confirmed 03/11] Rosuvastatin (NF) [Crestor (NF)] 40 mg PO QPM 03/11/17 [History Confirmed ] PMH/Surg Hx/FS Hx/Imm Hx Previously Healthy: No Endocrine/Hematology History: Reports: Hx Thyroid Disease Denies: Hx Diabetes Cardiovascular History: Reports: Hx Cardiomegaly, Hx Congestive Heart Failure, Hx Coronary Artery Disease, Hx Deep Vein Thrombosis - BL LEGS, Hx Hypercholesterolemia - HLD, Hx Hypertension, Hx Valvular Heart Disease - AORTIC VALVE Denies: Hx Pacemaker/ICD Respiratory History: Reports: Hx Sleep Apnea - CPAP, Other Respiratory Problems/ Disorders - PLEURAL EFFUSION Denies: Hx Asthma - according to patient, Hx Chronic Obstructive Pulmonary Disease (COPD) - according to patient History: Reports: Hx Kidney Stones Musculoskeletal History: Reports: Hx Arthritis, Hx Back Problems - spinal stenosis, Other Musculoskeletal History - spinal stenosis Sensory History: Reports: Hx Contacts or Glasses Denies: Hx Hearing Aid Opthamlomology History: Reports: Hx Contacts or Glasses Psychiatric History: Denies: Hx Panic Disorder - Cancer History Hx Chemotherapy: No - Surgical History Surgery Procedure, Year, and Place: THOROCENTESIS x 2. CABG 2006. CARDIAC STENT 03/2002. tonsils,. LUMBAR SURGERY 10/23 Hx Anesthesia Reactions: No - Immunization History Date of Tetanus Vaccine: current Date of Influenza Vaccine: 2014 Infectious Disease History: No Infectious Disease History: Denies: Hx Clostridium Difficile, Hx Hepatitis, Hx Human Immunodeficiency Virus (HIV), Hx of Known/Suspected MRSA, Hx Shingles, Hx Tuberculosis, Hx Known/ Suspected VRE, Hx Known/Suspected VRSA, History Other Infectious Disease, Traveled Outside the [place] in Last 30 Days - Family History Known Family History: Positive: Hypertension - Social History Lives: With Family Alcohol Use: None Hx Substance Use: No Substance Use Type: Reports: None Hx Tobacco Use: No Smoking Status (MU): Never Smoked Tobacco Review of Systems Negative: Fever Positive: Shortness Of Breath, Other - wheezing Positive: Other - right hip pain, right toe pain Positive: Other - abrasion on right toe Neurological: Negative - LOC All Other Systems Reviewed And Are Negative: Yes Physical Exam Triage Information Reviewed: Yes Vital Signs On Initial Exam: Initial Vitals Temp Pulse Resp BP Pulse Ox 98.5 F 81 16 144/112 90 03/11/17 11:48 03/11/17 11:48 03/11/17 11:48 03/11/17 11:48 03/11/17 11:48 Vital Signs Reviewed: Yes Appearance: Positive: Well-Appearing, No Pain Distress Skin: Positive: Warm, Other - abrasion to the right great toe Head/Face: Positive: Normal Head/Face Inspection Neck: Positive: Nontender Respiratory/Lung Sounds: Positive: Breath Sounds Present, Wheezes - bilateral Cardiovascular: Positive: RRR. Negative: Murmur Abdomen Description: Positive: Nontender, Distended Musculoskeletal: Positive: Edema Right - significant lymphedema right leg. Neurological: Positive: Sensory/Motor Intact - right leg large and too much effort to move it much., Alert, Oriented to Person Place, Time, CN Intact II-III Psychiatric: Positive: Normal - Kinder Coma Scale Best Eye Response: 4 - Spontaneous Best Motor Response: 6 - Obeys Commands Best Verbal Response: 5 - Oriented Diagnostics - Vital Signs Vital Signs Temp Pulse Resp BP Pulse Ox 03/11/17 11:48 98.5 F 81 16 144/112 90 - Laboratory Result Diagrams: 03/11/17 14:19 03/11/17 14:19 Lab Statement: Any lab studies that have been ordered have been reviewed, and results considered in the medical decision making process. - Radiology CXR Xray Interpretation: No Acute Changes - IMPRESSION: POSTSURGICAL CHANGES AND FINDINGS CONSISTENT WITH COPD, NO EVIDENCE FOR ACUTE FINDING. ED physician has reviewed this radiology report. Radiology Interpretation Completed By: Radiologist Femur XR Xray Interpretation: No Acute Changes - IMPRESSION: NO ACUTE OSSEOUS INJURY. IF SYMPTOMS PERSIST, RECOMMEND REPEAT IMAGING. ED physician has reviewed this radiology report. Radiology Interpretation Completed By: Radiologist Foot XR Xray Interpretation: Positive (See Comments) - IMPRESSION: 1. LIMITED STUDY. 2. OSTEOPENIA. 3. OSTEOARTHRITIS. 4. NO ACUTE OSSEOUS INJURY. IF SYMPTOMS PERSIST, RECOMMEND REPEAT IMAGING. ED physician has reviewed this radiology report. Radiology Interpretation Completed By: Radiologist Lower Extremity XR Xray Interpretation: Positive (See Comments) - IMPRESSION: Cortical thickening mid shaft of the tibia. No definite fracture is noted. ED physician has reviewed this radiology report. Radiology Interpretation Completed By: Radiologist Pelvis XR Xray Interpretation: No Acute Changes - IMPRESSION: No fracture of the pelvis is noted although the study is limited. ED physician has reviewed this radiology report. Radiology Interpretation Completed By: Radiologist - Additional Comments Diagnostic Additional Comments: Venous Doppler Study reveals, per radiologist IMPRESSION: No evidence for RIGHT lower extremity deep venous thrombosis. Exam is mildly limited due to nonvisualization of the peroneal veins. ED physician has reviewed this radiology report. Lower Extremity Course/Dx - Course Course Of Treatment: This patient is a 76 year old BIBA to [facility] accompanied by with a chief complaint of right leg and hip pain s/p a fall at approx. 0930 today. Patient states he tripped and stubbed his right toe and is having trouble walking up stairs. Patient denies LOC or head trauma. Patient has an abrasion on his right toe. The pain is rated 8/10 in severity. Symptoms aggravated by nothing. Symptoms alleviated by nothing. Patient also has a hx of lymphedema in right leg and left arm. Patient additionally reports, wheezing, SOB. The patient states that his leg cannot handle his weight and that he cant lift leg. CXR reveals, per radiologist, IMPRESSION: POSTSURGICAL CHANGES AND FINDINGS CONSISTENT WITH COPD, NO EVIDENCE FOR ACUTE FINDING. ED physician has reviewed this radiology report. Femur XR reveals, per radiologist, IMPRESSION: NO ACUTE OSSEOUS INJURY. IF SYMPTOMS PERSIST, RECOMMEND REPEAT IMAGING. ED physician has reviewed this radiology report. Foot XR reveals, per radiologist, IMPRESSION: 1. LIMITED STUDY. 2. OSTEOPENIA. 3. OSTEOARTHRITIS. 4. NO ACUTE OSSEOUS INJURY. IF SYMPTOMS PERSIST, RECOMMEND REPEAT IMAGING. ED physician has reviewed this radiology report. Lower Extremity XR reveals, per radiologist, IMPRESSION: Cortical thickening mid shaft of the tibia. No definite fracture is noted. ED physician has reviewed this radiology report. Pelvis XR reveals, per radiologist, IMPRESSION: No fracture of the pelvis is noted although the study is limited. ED physician has reviewed this radiology report. Venous Doppler Study reveals, per radiologist IMPRESSION: No evidence for RIGHT lower extremity deep venous thrombosis. Exam is mildly limited due to nonvisualization of the peroneal veins. ED physician has reviewed this radiology report. Bloodwork Obtained. In the ED course the patient was given Albuterol, Tylenol - Diagnoses Provider Diagnoses: Cellulitis of right lower leg, COPD exacerbation, Lymphedema Discharge - Discharge Plan Condition: Good Disposition: ADMITTED TO [facility] Referrals: Zeeshan Fong MD [Primary Care Provider] - The documentation as recorded by the Jarvis rosenbaum Tecjoon accurately reflects the service I personally performed and the decisions made by , Eduin Cervantes MD.
[2017-03-11] MEDS ORDERED: Levothyroxine TAB* 100 MCG TAB PO SCH (17:00)
--- NOTE | 2017-03-11 17:45 | RAD ---
Indication: Fall. Comparison: November 01, 2007 CT. Technique: Noncontrast CT vertex of skull through foramen magnum. Report: Mild prominence of the cerebral sulci. Unremarkable ventricles and basal cisterns. Negative for valdez matter white matter obscuration, intra or extra-axial hemorrhage, or mass effect. Unremarkable orbital contents. Negative for fracture or suspicious lesion of the calvarium or skull base. Negative for scalp hematoma. Clear paranasal sinuses and mastoid air spaces. IMPRESSION: Mild involutional change. No acute intracranial process or traumatic injury evident.
[2017-03-11] MEDS: ceFAZolin 1 GM VIAL(*) 1 GM in NS 0.9% 50 ML* 50 ML IVPB SCH (19:44)
[2017-03-11] MEDS: Torsemide TAB* 20 MG PO SCH (19:44)
[2017-03-11] MEDS: Atorvastatin* 80 MG TAB PO SCH (19:44)
[2017-03-11] MEDS: Gabapentin CAP(*) 300 MG PO SCH (19:45)
--- NOTE | 2017-03-11 20:12 | HP ---
CC: Dr. Fong * HISTORY AND PHYSICAL: DATE OF ADMISSION: 03/11/17 PRIMARY CARE PROVIDER: Dr. Fong. ATTENDING PHYSICIAN WHILE IN THE HOSPITAL: Maria Esther Donnelly MD * (report dictated by Luis Mederos NP) CHIEF COMPLAINT: Fall. HISTORY OF PRESENT ILLNESS: Mr. Benjamin is a 76-year-old male patient with multiple medical problems who comes into the ER today stating that last night he was outside, he lost his balance and he fell. He landed on a snowbank. He is unsure if he hit his head, but his neighbor was able to come over and help him up to his feet. He got up, he went to bed. He says actually he woke this morning, was feeling pretty good. He unfortunately though was feels like he was putting wood on the wood stove, one of his grandchildren had a toy box out, he did not see it, he tripped over it and fell again. He landed on his hip, did not hit his head. Took him about an hour to get up with help from his . He was feeling okay, but then again around 10:30 this morning, he was getting ready to go for an appointment with one of his physicians. He was walking up from stairs, he got up to the 10th stair and his foot got caught on the lip of the stair and he fell. He says he has had significant amount of limitation because of his right lower extremity. He has chronic lymphedema in this extremity. In addition to this, he has no control of the extremities as he drags it and this has been the issue for some time. He has had this for about 4 years and he has had an extensive workup. He says he is not having any pain now. He denies having any chest pain. He says he does not feel short of breath. He says leading up to this, he did not feel ill. He was not having any dysuria. No frequency. He says his legs have just become more swollen. He says he has not eaten any salt. He says that his diet has remained low salt and he has not had any increase in his fluid intake. He says he has not had any vomiting or diarrhea or any abdominal pain, but he says that he has been feeling more weak particularly in that leg. He has been having a harder time. He is falling. He says the redness to his opinion have not gotten any worse, but the swelling certainly has gotten worse. He says he has been taking his diuretics as prescribed. He says he typically has to sleep in a recliner that is not a new development for him and he says he always sleeps in a recliner. He says he is not feeling any more short of breath. He is not having any chest pain. He came into the ED today. There was concern because of the falls, the fact that he was wheezing on exam and we were asked to evaluate for admission. PAST MEDICAL HISTORY: Significant for: 1. CAD. 2. He does have a history of CHF. The last echo that I have was an EF of 50% to 55%. 3. He does have history of hypertension. 4. Hyperlipidemia. 5. JULIANE. 6. Hypothyroidism. 7. Chronic back pain. 8. Spinal stenosis. 9. Lymphedema. 10. CKD. 11. History of questionable COPD. PAST SURGICAL HISTORY: 1. He has had heart catheterization and one stent. 2. He has had CABG, triple bypass. 3. Laminectomy at L1-L2. 4. He has had tonsillectomy. 5. He has had nephrolithiasis with extraction. HOME MEDICATIONS: Include: 1. Synthroid 325 mcg p.o. daily except Sundays. 2. Gabapentin 300 mg p.o. b.i.d. 3. Aspirin 81 mg daily. 4. Ventolin one puff inhaled every 6 hours as needed. 5. Crestor 40 mg p.o. daily. 6. Toprol-XL 50 mg p.o. daily. 7. Lisinopril 20 mg daily. 8. Demadex 60 mg in the morning, 40 mg at bedtime. 9. He is on amlodipine 10 mg daily. ALLERGIES TO MEDICATIONS: Include MORPHINE. FAMILY HISTORY: Mother had colon cancer. Father at the age of 57. SOCIAL HISTORY: He does not smoke, does not drink. Surrogate decision maker is his son, Hamilton. REVIEW OF SYSTEMS: There is no documented fever. He is unsure of any weight change because he does not weigh himself routinely. Denies having any abdominal pain. There has been no nausea or vomiting. There has been no dysuria, no frequency. He denied having any loss of consciousness, no pruritus. Denied having any skin ulcerations. He did admit to having lower extremity swelling particularly in the left leg. Review of 14-systems completed, all others negative. PHYSICAL EXAMINATION GENERAL: At this time, Mr. Benjamin is a 76-year-old male patient. He is morbidly obese. He does appear to be disheveled. He is sitting in the ED stretcher. He does not appear to be in any acute distress. VITAL SIGNS: Blood pressure 143/67, pulse 92, respirations 18, O2 sat 95%, temperature 98.5. HEENT: Head: Atraumatic. Eyes: EOMs are intact. Sclerae are anicteric and not pale. Throat: Oral mucosa appears to be dry. No oropharyngeal erythema. NECK: Supple. LUNGS: He had expiratory wheezes noted in the upper lobes, equal diaphragmatic expansion. HEART: Sounds S1, S2. Regular rate and rhythm. No murmurs, rubs, or gallops. ABDOMEN: Soft, flat, nontender. Bowel sounds were present. EXTREMITIES: Pulses were 2+ throughout. He had lymphedema noted to the right lower extremity basically from the pedal area all the way up into his right groin. He has area of erythema noted in the right lower extremity on the right foot up into the right mid calf region. This is unclear if it appears to be chronic. He does have some redness on his knee, which could be an abrasion or possible worsening cellulitis. No obvious wounds were noted. He did have an abrasion to his toe on the right foot. He is moving his extremities, his upper extremity has 5/5 strength. He has decreased strength in the right lower extremity. NEUROLOGIC: The patient is awake, he is alert, he is oriented x3. His tongue is midline. Freight Broker were equal. He had no gross focal deficits. He does have some weakness in the right lower extremity which is chronic in nature for the patient. SKIN: Grossly intact. Exception again, he has some erythema noted in the right lower extremity. DIAGNOSTIC STUDIES/LAB DATA: WBC of 11.2, RBC of 4.17, hemoglobin 11.8, hematocrit 37, platelet count of 196. INR 1.07. Sodium is 138, potassium 4.3, chloride of 99, bicarb 30, BUN 58. His creatinine is 1.71 and last creatinine was 1.6. His glucose was 107, lactate 1.4, calcium 9.7, total bili 0.5, AST 26 , ALT 13, alk phos 72. Troponin is 0.01, BNP was 18, albumin was 3.9. Serology was negative for flu. Multiple imaging here in the ED, he had a venous Doppler study of that right lower extremity, which showed no evidence of right lower extremity DVT. Exam is mildly limited. Femur x-ray obtained today showed no acute osseous injury. If symptoms persist, recommend further imaging. He had a foot x-ray and impression: Limited study, osteopenia, osteoarthritis. No acute osseous injury. If symptoms persist, recommend repeat imaging. He had a lower extremity x-ray, which showed cortical thickening mid shaft of the tibia, no definite fracture is noted. Chest x-ray, impression: Postsurgical changes and findings consistent with COPD. No evidence for acute finding. He had a pelvis x-ray today which showed no fracture of the pelvis is noted. Old medical records were reviewed. ASSESSMENT AND PLAN: Mr. Benjamin is a 76-year-old male patient with multiple medical problems, coming into the ED today with complaints of recurrent falls. On evaluation today, there was concern for possible cellulitis of right lower extremity and because of the recurrent falls, we were asked to evaluate for admission. He will be admitted in inpatient status for: 1. Cellulitis: Again it does appear there is mild cellulitis of the right lower extremity. I am going to go ahead and put him on Ancef, renally dosed and we will continue to follow. 2. Falls: Again this is multifactorial. I suspect that he has chronic weakness to that right lower extremity which certainly may be limiting his mobility from the lymphedema and from the fact that became moved the leg as well. Plan, we will get PT and OT evaluation on the patient and because of the falls that he has had, I am going to get a CT of the brain. 3. Coronary artery disease: He is not having any chest pain currently. We will continue meds as prescribed at this point. 4. Congestive heart failure: He does not appear to be in failure. He is wheezing on exam, but his BNP is flat and his x-ray looks normal, so at this time I will just continue his Demadex as prescribed. 5. Hypertension: Continue meds as prescribed. 6. Hyperlipidemia: Continue meds as prescribed. 7. Obstructive sleep apnea: We will continue his CPAP. 8. Hypothyroidism: Continue his Synthroid. 9. Chronic back pain, spinal stenosis: Continue p.r.n. Tylenol. 10. Lymphedema: At this point, we will go ahead and wrap the lower extremity. 11. Chronic kidney disease: We will follow the creatinine. 12. Chronic obstructive pulmonary disease: He is wheezing on exam and he may have component of an exacerbation. My plan at this point would be to put him on nebs standing and then Dulera. 13. DVT prophylaxis: The patient is high risk. I will place him on heparin subcu. 14. Code status: He does wish to be a do not resuscitate. We will see if we have this form, if not we will go ahead and fill this out. 15. Fluids, electrolytes, and nutrition: He can have a heart healthy diet. TIME SPENT: On the admission was 60 minutes, greater than half of the time was spent [id number] with the patient obtaining history and physical, the other half of the time was spent going over the plan of care with the patient and implementing the plan of care. I did discuss plan of care with my attending, Dr. Donnelly, who is in agreement. LUIS MEDEROS, DANAE [id number]/CPS #: [id number] NATHALY
[2017-03-11] MEDS: Mometasone/Formoter 200/5 MDI INH SCH (20:20)
[2017-03-11] MEDS: Albuterol/Ipratropium NEB.SOL* Albuterol 2.5 MG/Ipratropium 0.5 MG 3 ML INH SCH (20:20)
[2017-03-11] MEDS: Heparin VIAL(*) 5000 UNITS/ML VIAL (FIVE THOUSAND) SUBCUT SCH (22:33)
[2017-03-12] MEDS: Albuterol/Ipratropium NEB.SOL* Albuterol 2.5 MG/Ipratropium 0.5 MG 3 ML INH SCH ×3 (00:29→08:04)
[2017-03-12] MEDS: Levothyroxine TAB* 150 MCG TAB PO SCH (04:59)
[2017-03-12] MEDS: Heparin VIAL(*) 5000 UNITS/ML VIAL (FIVE THOUSAND) SUBCUT SCH ×3 (04:59→21:01)
[2017-03-12] MEDS: Levothyroxine TAB* 175 MCG TAB PO SCH (04:59)
[2017-03-12 06:12] LABS: Urine Appearance Clear; Urine Blood Negative (Negative); Urine Color Yellow; Urine Ketones Negative (Negative); Urine Protein Negative (Negative); Urine Specific Gravity 1.015 (1.010-1.030); Urine Urobilinogen Negative (Negative)
[2017-03-12 07:24] LABS: Eosinophil % 0.1 % (0-6); Hematocrit 32 % (42-52); Hemoglobin 10.1 g/dl (14.0-18.0); Lymphocyte % 9.8 % (25-47); Mean Corpuscular HGB Conc 31 g/dl (31-36); Mean Corpuscular Hemoglobin 28 pg (27-31); Mean Corpuscular Volume 89 fL (80-94); Nucleated Red Blood Cells % 0.1; Red Blood Count 3.62 10^6/ul (4.0-5.4); Red Cell Distribution Width 15 % (10.5-15)
[2017-03-12 07:26] LABS: EGFR Non-African American 37.6 (>60)
[2017-03-12 07:47] LABS: White Blood Count 13.5 10^3/ul (3.5-10.8)
[2017-03-12 07:48] LABS: ABS Basophils 0 10^3/ul (0-0.2); ABS Eosinophils 0 10^3/ul (0-0.6); ABS Lymphocytes 1.3 10^3/ul (1.0-4.8); ABS Monocytes 0.4 10^3/ul (0-0.8); ABS Neutrophils 11.7 10^3/ul (1.5-7.7); ABS Nucleated RBC 0.01 10^3/ul; Mean Platelet Volume 9 um3 (7.4-10.4); Platelet Count 169 10^3/ul (150-450)
[2017-03-12] MEDS: amLODIPine TAB* 5 MG PO SCH (08:01)
[2017-03-12] MEDS: Lisinopril TAB* 10 MG PO SCH (08:01)
[2017-03-12] MEDS: Gabapentin CAP(*) 300 MG PO SCH ×2 (08:01→21:00)
[2017-03-12] MEDS: Metoprolol Succinate XL TAB* 50 MG PO SCH (08:01)
[2017-03-12] MEDS: Aspirin EC Low Dose* 81 MG TAB.EC PO SCH (08:01)
[2017-03-12] MEDS: Torsemide TAB* 20 MG PO SCH ×2 (08:01→16:51)
[2017-03-12] MEDS: ceFAZolin 1 GM VIAL(*) 1 GM in NS 0.9% 50 ML* 50 ML IVPB SCH ×2 (08:01→21:01)
[2017-03-12] MEDS: Mometasone/Formoter 200/5 MDI INH SCH ×2 (08:04→20:46)
--- NOTE | 2017-03-12 11:40 | PN ---
Subjective Date of Service: 03/12/17 Interval History: has been going to [facility] to wrap his legs 3x/week for 3 weeks. Has follwed w/ Dr. flores, Dr. Saunders and Dr. Romero who referred to Dr. Jairo Fitzgerald ([email or web address]) but no vascular surgery indicated. Has multiple stairs with intervening landings at home. Was wheezing on arrival. Has gained weight over the last year 327 to 351 (two months ago) to now 363. compliant with torsemide 60/40. Last ECHO was preop prior to Dr. Mendoza doing back surgery in October. Had recent MRI for him. Sherice is Cardiology. Dopplers no DVT CTH negative. Objective Active Medications: Acetaminophen (Tylenol Tab*) 650 mg PO Q4H PRN PRN Reason: FEVER/PAIN Amlodipine Besylate (Norvasc Tab*) 10 mg PO QAM [facility] Last Admin: 03/12/17 08:01 Dose: 10 mg Aspirin (Aspirin Ec Low Dose*) 81 mg PO DAILY [facility] Last Admin: 03/12/17 08:01 Dose: 81 mg Atorvastatin Calcium (Lipitor*) 80 mg PO QPM [facility] Last Admin: 03/11/17 19:44 Dose: 80 mg Gabapentin (Neurontin Cap(*)) 300 mg PO BID [facility] Last Admin: 03/12/17 08:01 Dose: 300 mg Heparin Sodium (Porcine) (Heparin Vial(*)) 5,000 units SUBCUT Q8HR [facility] Last Admin: 03/12/17 04:59 Dose: 5,000 units Cefazolin Sodium 1 gm/ Sodium (Chloride) 50 mls @ 200 mls/hr IVPB Q12H [facility] Last Admin: 03/12/17 08:01 Dose: 200 mls/hr Levothyroxine Sodium (Synthroid Tab*) 175 mcg PO DAILY@0600 [facility] Last Admin: 03/12/17 04:59 Dose: 175 mcg Levothyroxine Sodium (Synthroid Tab*) 150 mcg PO DAILY@0600 [facility] Last Admin: 03/12/17 04:59 Dose: 150 mcg Lisinopril (Prinivil Tab*) 20 mg PO DAILY [facility] Last Admin: 03/12/17 08:01 Dose: 20 mg Metoprolol Succinate (Toprol Xl Tab*) 50 mg PO QAM [facility] Last Admin: 03/12/17 08:01 Dose: 50 mg Mometasone Furoate/Formoterol Fumar (Dulera 200/5 Mdi*) 2 puff INH BID [facility] Last Admin: 03/12/17 08:04 Dose: 2 puff Ondansetron HCl (Zofran Inj*) 4 mg IV Q6H PRN PRN Reason: NAUSEA Torsemide (Demadex*) 40 mg PO QPM [facility] Last Admin: 03/11/17 19:44 Dose: 40 mg Torsemide (Demadex*) 60 mg PO QAM [facility] Last Admin: 03/12/17 08:01 Dose: 60 mg Vital Signs - 8 hr 03/12/17 03/12/17 03/12/17 07:52 08:00 08:01 Temperature 98.3 F Pulse Rate 87 Respiratory 24 20 18 Rate Blood Pressure 133/48 (mmHg) O2 Sat by Pulse 92 Oximetry 03/12/17 08:07 Temperature Pulse Rate 88 Respiratory 18 Rate Blood Pressure (mmHg) O2 Sat by Pulse 90 Oximetry Oxygen Devices in Use Now: Nasal Cannula Appearance: NAD, sitting in chair. Neck: NL Appearance and Movements; NL JVP, Trachea Midline Respiratory: - - difficult exam given body habitus, no mesha wheezing or rhonchi currently. Cardiovascular: NL Sounds; No Murmurs; No JVD, RRR Abdominal: - - distended. Extremities: - - lymphadema on right LE with erythema; b/l edema. Skin: - - erythema right leg Neurological: Alert and Oriented x 3, NL Sensation Result Diagrams: 03/12/17 06:35 03/12/17 06:41 Additional Lab and Data: Laboratory Results - last 24 hr 03/11/17 03/12/17 03/12/17 22:12 04:55 06:35 WBC 13.5 H RBC 3.62 L Hgb 10.1 L Hct 32 L MCV 89 MCH 28 MCHC 31 RDW 15 Plt Count 169 MPV 9 Neut % (Auto) 86.5 H Lymph % (Auto) 9.8 L [place] % (Auto) 3.2 Eos % (Auto) 0.1 Baso % (Auto) 0.4 Absolute Neuts (auto) 11.7 H Absolute Lymphs (auto) 1.3 Absolute Monos (auto) 0.4 Absolute Eos (auto) 0 Absolute Basos (auto) 0 Absolute Nucleated RBC 0.01 Nucleated RBC % 0.1 Sodium Potassium Chloride Carbon Dioxide Anion Gap BUN Creatinine Est GFR ( Amer) Est GFR (Non-Af Amer) BUN/Creatinine Ratio Glucose Calcium Troponin I 0.01 Urine Color Yellow Urine Appearance Clear Urine pH 5.0 Ur Specific [place] 1.015 Urine Protein Negative Urine Ketones Negative Urine Blood Negative Urine Nitrate Negative Urine Bilirubin Negative Urine Urobilinogen Negative Ur Leukocyte Esterase Negative Urine Glucose Negative 03/12/17 06:41 WBC RBC Hgb Hct MCV MCH MCHC RDW Plt Count MPV Neut % (Auto) Lymph % (Auto) [place] % (Auto) Eos % (Auto) Baso % (Auto) Absolute Neuts (auto) Absolute Lymphs (auto) Absolute Monos (auto) Absolute Eos (auto) Absolute Basos (auto) Absolute Nucleated RBC Nucleated RBC % Sodium 137 Potassium 4.7 Chloride 102 Carbon Dioxide 26 Anion Gap 9 BUN 66 H Creatinine 1.76 H Est GFR ( Amer) 48.4 Est GFR (Non-Af Amer) 37.6 BUN/Creatinine Ratio 37.5 H Glucose 154 H Calcium 9.1 Troponin I Urine Color Urine Appearance Urine pH Ur Specific [place] Urine Protein Urine Ketones Urine Blood Urine Nitrate Urine Bilirubin Urine Urobilinogen Ur Leukocyte Esterase Urine Glucose Microbiology and Other Data: Microbiology 03/11/17 14:06 Nasal Influenza Types A,B Antigen (ANA) - Final Specimen received for Influenza A/B Molecular testing Assess/Plan/Problems-Billing Assessment: 76 male PMH CAD s/p CABG and stent, diastolic CHF (EF 50-55%) chronic lymphadema much worse on right presenting with 3 falls in 24 hours. Likely needs placement at SNF. On ancef for ?cellulitis near lymphadema right calf. - Patient Problems (1) Falls Current Visit: Yes Status: Acute Comment: PT/OT likely will need SNF 2/2 massive lymphadema in legs, unable to ambulate. (2) Lymphedema Current Visit: No Status: Chronic Code(s): I89.0 - LYMPHEDEMA, NOT ELSEWHERE CLASSIFIED SNOMED Code(s): 350126640 Comment: on ancef for question of cellulitis given erythema, slight leukocytosis. (3) Cellulitis Current Visit: No Status: Acute Code(s): L03.90 - CELLULITIS, UNSPECIFIED SNOMED Code(s): 278948922 Comment: - Failed outpatient treatment with cephalexin. - Continue Clindamycin. - He alreadys wears a lymphedema pump at home and wraps his LE too. - Amlodipine was discontinued in the past with no change in his edema. (4) Diastolic CHF Current Visit: No Status: Chronic Code(s): I50.30 - UNSPECIFIED DIASTOLIC ( CONGESTIVE) HEART FAILURE SNOMED Code(s): 966688380 Comment: BNP only 18 (though can be falsely low in morbid obesity) CXR with e/o COPD but not volume overload massive weight gain over last year - continue Torsemide. (5) CKD (chronic kidney disease) Current Visit: No Status: Chronic Code(s): N18.9 - CHRONIC KIDNEY DISEASE, UNSPECIFIED SNOMED Code(s): 786220688 Comment: WE[employer] CONSULTANT 1.7 vs prior 1.6 in Dec. Overall rising trend over last year though. - Stage 3 (6) HLD (hyperlipidemia) Current Visit: No Status: Chronic Code(s): E78.5 - HYPERLIPIDEMIA, UNSPECIFIED SNOMED Code(s): 40314489 Comment: - Continue statin (7) HTN (hypertension) Current Visit: No Status: Chronic Code(s): I10 - ESSENTIAL (PRIMARY) HYPERTENSION SNOMED Code(s): 82021216 Comment: - Normotensive - Continue amlodipine and lisinopril, torsemide. (8) JULIANE (obstructive sleep apnea) Current Visit: No Status: Chronic Code(s): G47.33 - OBSTRUCTIVE SLEEP APNEA (ADULT) (PEDIATRIC) SNOMED Code(s): 50851571 Comment: - Continue home CPAP (9) CAD (coronary artery disease) Current Visit: No Status: Acute Code(s): I25.10 - ATHSCL HEART DISEASE OF [place] CORONARY ARTERY W/O ANG PCTRS SNOMED Code(s): 60660786 Comment: - Stable. - Continue Aspirin, metoprolol and statin. (10) COPD (chronic obstructive pulmonary disease) Current Visit: No Status: Chronic Code(s): J44.9 - CHRONIC OBSTRUCTIVE PULMONARY DISEASE, UNSPECIFIED SNOMED Code(s): 85664185 Comment: - Albuterol nebs or inhaler PRN - Continue Incentive Spirometer (11) Lumbar stenosis Current Visit: No Status: Acute Code(s): M48.06 - SPINAL STENOSIS, LUMBAR REGION * DO NOT USE * SNOMED Code(s): 56606017 Comment: - S/P L1-2 laminectomy in October () Hypothyroidism Current Visit: No Status: Chronic Code(s): E03.9 - HYPOTHYROIDISM, UNSPECIFIED SNOMED Code(s): 88953965 Comment: - Continue synthroid (325mcg !) TSH wnl Status and Disposition: medicine inpatient. Likely needs SNF Attending: Eric Palacios
[2017-03-12] MEDS: Atorvastatin* 80 MG TAB PO SCH (16:51)
[2017-03-12] MEDS: Acetaminophen TAB* 325 MG PO PRN (21:01)
[2017-03-13] MEDS: Heparin VIAL(*) 5000 UNITS/ML VIAL (FIVE THOUSAND) SUBCUT SCH ×3 (05:55→21:45)
[2017-03-13] MEDS: Levothyroxine TAB* 175 MCG TAB PO SCH (05:55)
[2017-03-13] MEDS: Levothyroxine TAB* 150 MCG TAB PO SCH (05:55)
[2017-03-13] MEDS: Mometasone/Formoter 200/5 MDI INH SCH ×2 (07:21→20:43)
[2017-03-13] MEDS: Metoprolol Succinate XL TAB* 50 MG PO SCH (08:40)
[2017-03-13] MEDS: ceFAZolin 1 GM VIAL(*) 1 GM in NS 0.9% 50 ML* 50 ML IVPB SCH ×2 (08:51→21:47)
[2017-03-13] MEDS: Lisinopril TAB* 10 MG PO SCH (08:52)
[2017-03-13] MEDS: amLODIPine TAB* 5 MG PO SCH (08:52)
[2017-03-13] MEDS: Gabapentin CAP(*) 300 MG PO SCH ×2 (08:52→21:44)
[2017-03-13] MEDS: Aspirin EC Low Dose* 81 MG TAB.EC PO SCH (08:52)
[2017-03-13] MEDS: Torsemide TAB* 20 MG PO SCH ×2 (08:52→16:32)
--- NOTE | 2017-03-13 08:53 | PN ---
Subjective Date of Service: 03/13/17 Interval History: Pain RLE stable, does not need analgesic at present. No new c/o. Objective Active Medications: Acetaminophen (Tylenol Tab*) 650 mg PO Q4H PRN PRN Reason: FEVER/PAIN Last Admin: 03/12/17 21:01 Dose: 650 mg Amlodipine Besylate (Norvasc Tab*) 10 mg PO QAM [facility] Last Admin: 03/12/17 08:01 Dose: 10 mg Aspirin (Aspirin Ec Low Dose*) 81 mg PO DAILY [facility] Last Admin: 03/12/17 08:01 Dose: 81 mg Atorvastatin Calcium (Lipitor*) 80 mg PO QPM [facility] Last Admin: 03/12/17 16:51 Dose: 80 mg Gabapentin (Neurontin Cap(*)) 300 mg PO BID [facility] Last Admin: 03/12/17 21:00 Dose: 300 mg Heparin Sodium (Porcine) (Heparin Vial(*)) 5,000 units SUBCUT Q8HR [facility] Last Admin: 03/13/17 05:55 Dose: 5,000 units Cefazolin Sodium 1 gm/ Sodium (Chloride) 50 mls @ 200 mls/hr IVPB Q12H [facility] Last Admin: 03/12/17 21:01 Dose: 200 mls/hr Levothyroxine Sodium (Synthroid Tab*) 175 mcg PO DAILY@0600 [facility] Last Admin: 03/13/17 05:55 Dose: 175 mcg Levothyroxine Sodium (Synthroid Tab*) 150 mcg PO DAILY@0600 [facility] Last Admin: 03/13/17 05:55 Dose: 150 mcg Lisinopril (Prinivil Tab*) 20 mg PO DAILY [facility] Last Admin: 03/12/17 08:01 Dose: 20 mg Metoprolol Succinate (Toprol Xl Tab*) 50 mg PO QAM [facility] Last Admin: 03/13/17 08:40 Dose: Not Given Mometasone Furoate/Formoterol Fumar (Dulera 200/5 Mdi*) 2 puff INH BID [facility] Last Admin: 03/13/17 07:21 Dose: 2 puff Ondansetron HCl (Zofran Inj*) 4 mg IV Q6H PRN PRN Reason: NAUSEA Torsemide (Demadex*) 40 mg PO QPM [facility] Last Admin: 03/12/17 16:51 Dose: 40 mg Torsemide (Demadex*) 60 mg PO [facility] Last Admin: 03/12/17 08:01 Dose: 60 mg Vital Signs - 8 hr 03/13/17 03/13/17 03/13/17 03:37 07:24 07:45 Temperature 97.6 F 97.3 F Pulse Rate 65 56 57 Respiratory 20 18 20 Rate Blood Pressure 129/53 113/56 (mmHg) O2 Sat by Pulse 92 93 95 Oximetry Oxygen Devices in Use Now: Nasal Cannula Appearance: Alert, sitting on the edge of his bed. In fair spirits. Looks comfortable but somewhat tachypneic. Eyes: No Scleral Icterus Neck: NL Appearance and Movements; NL JVP, No Thyroid Enlargement, Masses Respiratory: Symmetrical Chest Expansion and Respiratory Effort, Clear to Auscultation, Clear to Percussion Cardiovascular: NL Sounds; No Murmurs; No JVD, RRR, - - 3-4+ edema both LE's. 2 + edema hands Extremities: No Clubbing, Cyanosis, - - 3-4+ edema both LE's. 2+ edema hands Skin: No Nodules or Sclerosis, - - Blister L palm. 12 cm red area L buttock area. RLE chronic changes, open wound draining thin brown liquid. Skin pebbled and multi-colored. Neurological: Alert and Oriented x 3, NL Sensation, - - Walks with walker with some effort. Result Diagrams: 03/12/17 06:35 03/12/17 06:41 Additional Lab and Data: Laboratory Results - last 24 hr 03/11/17 03/12/17 03/12/17 22:12 04:55 06:35 WBC 13.5 H RBC 3.62 L Hgb 10.1 L Hct 32 L MCV 89 MCH 28 MCHC 31 RDW 15 Plt Count 169 MPV 9 Neut % (Auto) 86.5 H Lymph % (Auto) 9.8 L [place] % (Auto) 3.2 Eos % (Auto) 0.1 Baso % (Auto) 0.4 Absolute Neuts (auto) 11.7 H Absolute Lymphs (auto) 1.3 Absolute Monos (auto) 0.4 Absolute Eos (auto) 0 Absolute Basos (auto) 0 Absolute Nucleated RBC 0.01 Nucleated RBC % 0.1 Sodium Potassium Chloride Carbon Dioxide Anion Gap BUN Creatinine Est GFR ( Amer) Est GFR (Non-Af Amer) BUN/Creatinine Ratio Glucose Calcium Troponin I 0.01 Urine Color Yellow Urine Appearance Clear Urine pH 5.0 Ur Specific [place] 1.015 Urine Protein Negative Urine Ketones Negative Urine Blood Negative Urine Nitrate Negative Urine Bilirubin Negative Urine Urobilinogen Negative Ur Leukocyte Esterase Negative Urine Glucose Negative 03/12/17 06:41 WBC RBC Hgb Hct MCV MCH MCHC RDW Plt Count MPV Neut % (Auto) Lymph % (Auto) [place] % (Auto) Eos % (Auto) Baso % (Auto) Absolute Neuts (auto) Absolute Lymphs (auto) Absolute Monos (auto) Absolute Eos (auto) Absolute Basos (auto) Absolute Nucleated RBC Nucleated RBC % Sodium 137 Potassium 4.7 Chloride 102 Carbon Dioxide 26 Anion Gap 9 BUN 66 H Creatinine 1.76 H Est GFR ( Amer) 48.4 Est GFR (Non-Af Amer) 37.6 BUN/Creatinine Ratio 37.5 H Glucose 154 H Calcium 9.1 Troponin I Urine Color Urine Appearance Urine pH Ur Specific [place] Urine Protein Urine Ketones Urine Blood Urine Nitrate Urine Bilirubin Urine Urobilinogen Ur Leukocyte Esterase Urine Glucose Microbiology and Other Data: Microbiology 03/11/17 14:06 Nasal Influenza Types A,B Antigen (ANA) - Final Specimen received for Influenza A/B Molecular testing Assess/Plan/Problems-Billing Assessment: 76 male PMH CAD s/p CABG and stent, diastolic CHF (EF 50-55%) chronic lymphadema much worse on right presenting with 3 falls in 24 hours. Likely needs placement at SNF. On ancef for ?cellulitis near lymphadema right calf. - Patient Problems (1) Cellulitis Current Visit: No Status: Acute Code(s): L03.90 - CELLULITIS, UNSPECIFIED SNOMED Code(s): 631900773 Comment: - Failed outpatient treatment with cephalexin. - Continue cefazolin. - He alreadys wears a lymphedema pump at home and wraps his LE too. - Amlodipine was discontinued in the past with no change in his edema. Pt states he has had problems with his leg for 4 years. (2) CKD (chronic kidney disease) Current Visit: No Status: Chronic Code(s): N18.9 - CHRONIC KIDNEY DISEASE, UNSPECIFIED SNOMED Code(s): 463370838 Comment: LOAN CLERK 1.7 vs prior 1.6 in Dec. Overall rising trend over last year though. - Stage 3 PVR by bladder scan ordered. (3) Lumbar stenosis Current Visit: No Status: Acute Code(s): M48.06 - SPINAL STENOSIS, LUMBAR REGION * DO NOT USE * SNOMED Code(s): 44537248 Comment: - S/P L1-2 laminectomy in October. MRI report 02/06/17 stenosis resolved, mild to mod lumbar spondolysis present. (4) CAD (coronary artery disease) Current Visit: No Status: Acute Code(s): I25.10 - ATHSCL HEART DISEASE OF [place] CORONARY ARTERY W/O ANG PCTRS SNOMED Code(s): 14387913 Comment: - Stable. - Continue Aspirin, metoprolol and statin. (5) Dermatitis Current Visit: Yes Status: Acute Code(s): L30.9 - DERMATITIS, UNSPECIFIED SNOMED Code(s): 61599700 Comment: Area on L buttock could be fungal. PO fluconazole ordered. (6) Falls frequently Current Visit: Yes Status: Acute Code(s): R29.6 - REPEATED FALLS SNOMED Code(s): 469874422 Comment: Consider change in level of care. Continue OT/PT. (7) Hypothyroidism Current Visit: No Status: Chronic Code(s): E03.9 - HYPOTHYROIDISM, UNSPECIFIED SNOMED Code(s): 72186821 Comment: - Continue synthroid (325mcg) TSH wnl 03/11/17. (8) Lymphedema Current Visit: No Status: Chronic Code(s): I89.0 - LYMPHEDEMA, NOT ELSEWHERE CLASSIFIED SNOMED Code(s): 702071509 Comment: on ancef for question of cellulitis given erythema, slight leukocytosis. Continue torsemide, daily weights. (9) COPD (chronic obstructive pulmonary disease) Current Visit: No Status: Chronic Code(s): J44.9 - CHRONIC OBSTRUCTIVE PULMONARY DISEASE, UNSPECIFIED SNOMED Code(s): 64782011 Comment: Continue mometasone/formoterol. (10) Morbid obesity Current Visit: Yes Status: Acute Code(s): E66.01 - MORBID (SEVERE) OBESITY DUE TO EXCESS CALORIES SNOMED Code(s): 011569475 Comment: BMI 49.0. Status and Disposition: medicine inpatient. Likely needs SNF
[2017-03-13] MEDS: Fluconazole 100 MG TAB* TAB PO SCH (10:41)
[2017-03-13] MEDS: Acetaminophen TAB* 325 MG PO PRN (10:45)
[2017-03-13] MEDS: Atorvastatin* 80 MG TAB PO SCH (16:32)
[2017-03-14] MEDS: Levothyroxine TAB* 175 MCG TAB PO SCH (05:37)
[2017-03-14] MEDS: Levothyroxine TAB* 150 MCG TAB PO SCH (05:37)
[2017-03-14] MEDS: Acetaminophen TAB* 325 MG PO PRN ×2 (05:38→11:01)
[2017-03-14] MEDS: Heparin VIAL(*) 5000 UNITS/ML VIAL (FIVE THOUSAND) SUBCUT SCH ×3 (05:43→20:02)
[2017-03-14 07:59] LABS: ABS Basophils 0.1 10^3/ul (0-0.2); ABS Eosinophils 0.3 10^3/ul (0-0.6); ABS Lymphocytes 1.4 10^3/ul (1.0-4.8); ABS Monocytes 0.8 10^3/ul (0-0.8); ABS Neutrophils 5.7 10^3/ul (1.5-7.7); ABS Nucleated RBC 0 10^3/ul; Eosinophil % 3.5 % (0-6); Hematocrit 31 % (42-52); Hemoglobin 10.2 g/dl (14.0-18.0); Lymphocyte % 17.1 % (25-47); Mean Corpuscular HGB Conc 32 g/dl (31-36); Mean Corpuscular Hemoglobin 29 pg (27-31); Mean Corpuscular Volume 88 fL (80-94); Mean Platelet Volume 8 um3 (7.4-10.4); Nucleated Red Blood Cells % 0; Platelet Count 157 10^3/ul (150-450); Red Blood Count 3.57 10^6/ul (4.0-5.4); Red Cell Distribution Width 15 % (10.5-15); White Blood Count 8.3 10^3/ul (3.5-10.8)
[2017-03-14] MEDS: Torsemide TAB* 20 MG PO SCH ×2 (08:31→17:59)
[2017-03-14] MEDS: Lisinopril TAB* 10 MG PO SCH (08:32)
[2017-03-14] MEDS: Metoprolol Succinate XL TAB* 50 MG PO SCH (08:32)
[2017-03-14] MEDS: Fluconazole 100 MG TAB* TAB PO SCH (08:32)
[2017-03-14] MEDS: ceFAZolin 1 GM VIAL(*) 1 GM in NS 0.9% 50 ML* 50 ML IVPB SCH ×2 (08:32→19:59)
[2017-03-14] MEDS: Aspirin EC Low Dose* 81 MG TAB.EC PO SCH (08:32)
[2017-03-14] MEDS: amLODIPine TAB* 5 MG PO SCH (08:32)
[2017-03-14] MEDS: Gabapentin CAP(*) 300 MG PO SCH ×2 (08:32→20:00)
[2017-03-14] MEDS: Mometasone/Formoter 200/5 MDI INH SCH ×2 (09:12→20:21)
--- NOTE | 2017-03-14 13:40 | PN ---
Subjective Date of Service: 03/14/17 Interval History: Pain control OK. Appetite good. No bowel c/o. Transfers and walks with 1 assist. Objective Active Medications: Acetaminophen (Tylenol Tab*) 650 mg PO Q4H PRN PRN Reason: FEVER/PAIN Last Admin: 03/14/17 11:01 Dose: 650 mg Amlodipine Besylate (Norvasc Tab*) 10 mg PO QAM [facility] Last Admin: 03/14/17 08:32 Dose: 10 mg Aspirin (Aspirin Ec Low Dose*) 81 mg PO DAILY [facility] Last Admin: 03/14/17 08:32 Dose: 81 mg Atorvastatin Calcium (Lipitor*) 80 mg PO QPM [facility] Last Admin: 03/13/17 16:32 Dose: 80 mg Fluconazole (Diflucan 100 Mg Tab*) 200 mg PO DAILY [facility] Last Admin: 03/14/17 08:32 Dose: 200 mg Gabapentin (Neurontin Cap(*)) 300 mg PO BID [facility] Last Admin: 03/14/17 08:32 Dose: 300 mg Heparin Sodium (Porcine) (Heparin Vial(*)) 5,000 units SUBCUT Q8HR [facility] Last Admin: 03/14/17 05:43 Dose: 5,000 units Cefazolin Sodium 1 gm/ Sodium (Chloride) 50 mls @ 200 mls/hr IVPB Q12H [facility] Last Admin: 03/14/17 08:32 Dose: 200 mls/hr Levothyroxine Sodium (Synthroid Tab*) 175 mcg PO DAILY@0600 [facility] Last Admin: 03/14/17 05:37 Dose: 175 mcg Levothyroxine Sodium (Synthroid Tab*) 150 mcg PO DAILY@0600 [facility] Last Admin: 03/14/17 05:37 Dose: 150 mcg Lisinopril (Prinivil Tab*) 20 mg PO DAILY [facility] Last Admin: 03/14/17 08:32 Dose: 20 mg Metoprolol Succinate (Toprol Xl Tab*) 50 mg PO QAM [facility] Last Admin: 03/14/17 08:32 Dose: 50 mg Mometasone Furoate/Formoterol Fumar (Dulera 200/5 Mdi*) 2 puff INH BID [facility] Last Admin: 03/14/17 09:12 Dose: 2 puff Ondansetron HCl (Zofran Inj*) 4 mg IV Q6H PRN PRN Reason: NAUSEA Torsemide (Demadex*) 40 mg PO QPM [facility] Last Admin: 03/13/17 16:32 Dose: 40 mg Torsemide (Demadex*) 60 mg PO QAM [facility] Last Admin: 03/14/17 08:31 Dose: 60 mg Vital Signs - 8 hr 03/14/17 03/14/17 03/14/17 07:18 08:00 08:32 Temperature 97.8 F Pulse Rate 70 Respiratory 16 19 20 Rate Blood Pressure 123/56 (mmHg) O2 Sat by Pulse 91 Oximetry 03/14/17 03/14/17 03/14/17 09:13 09:14 11:03 Temperature Pulse Rate 70 76 Respiratory 19 19 18 Rate Blood Pressure (mmHg) O2 Sat by Pulse 92 92 Oximetry 03/14/17 11:59 Temperature 97.9 F Pulse Rate 71 Respiratory 20 Rate Blood Pressure 132/65 (mmHg) O2 Sat by Pulse 95 Oximetry Oxygen Devices in Use Now: Nasal Cannula Appearance: Alert, in a chair. In good spirits. Looks comfortable. Eyes: No Scleral Icterus Extremities: No Clubbing, Cyanosis, - - 1+ edema BL Skin: No Nodules or Sclerosis, - - R lower leg bandaged with elastic wrap. Neurological: Alert and Oriented x 3, NL Sensation Result Diagrams: 03/14/17 07:35 03/12/17 06:41 Additional Lab and Data: Laboratory Results - last 24 hr 03/11/17 03/12/17 03/12/17 22:12 04:55 06:35 WBC 13.5 H RBC 3.62 L Hgb 10.1 L Hct 32 L MCV 89 MCH 28 MCHC 31 RDW 15 Plt Count 169 MPV 9 Neut % (Auto) 86.5 H Lymph % (Auto) 9.8 L [place] % (Auto) 3.2 Eos % (Auto) 0.1 Baso % (Auto) 0.4 Absolute Neuts (auto) 11.7 H Absolute Lymphs (auto) 1.3 Absolute Monos (auto) 0.4 Absolute Eos (auto) 0 Absolute Basos (auto) 0 Absolute Nucleated RBC 0.01 Nucleated RBC % 0.1 Sodium Potassium Chloride Carbon Dioxide Anion Gap BUN Creatinine Est GFR ( Amer) Est GFR (Non-Af Amer) BUN/Creatinine Ratio Glucose Calcium Troponin I 0.01 Urine Color Yellow Urine Appearance Clear Urine pH 5.0 Ur Specific [place] 1.015 Urine Protein Negative Urine Ketones Negative Urine Blood Negative Urine Nitrate Negative Urine Bilirubin Negative Urine Urobilinogen Negative Ur Leukocyte Esterase Negative Urine Glucose Negative 03/12/17 06:41 WBC RBC Hgb Hct MCV MCH MCHC RDW Plt Count MPV Neut % (Auto) Lymph % (Auto) [place] % (Auto) Eos % (Auto) Baso % (Auto) Absolute Neuts (auto) Absolute Lymphs (auto) Absolute Monos (auto) Absolute Eos (auto) Absolute Basos (auto) Absolute Nucleated RBC Nucleated RBC % Sodium 137 Potassium 4.7 Chloride 102 Carbon Dioxide 26 Anion Gap 9 BUN 66 H Creatinine 1.76 H Est GFR ( Amer) 48.4 Est GFR (Non-Af Amer) 37.6 BUN/Creatinine Ratio 37.5 H Glucose 154 H Calcium 9.1 Troponin I Urine Color Urine Appearance Urine pH Ur Specific [place] Urine Protein Urine Ketones Urine Blood Urine Nitrate Urine Bilirubin Urine Urobilinogen Ur Leukocyte Esterase Urine Glucose Microbiology and Other Data: Microbiology 03/11/17 14:06 Nasal Influenza Types A,B Antigen (ANA) - Final Specimen received for Influenza A/B Molecular testing Assess/Plan/Problems-Billing Assessment: 76 male PMH CAD s/p CABG and stent, diastolic CHF (EF 50-55%) chronic lymphadema much worse on right presenting with 3 falls in 24 hours. Likely needs placement at SNF. On ancef for ?cellulitis near lymphadema right calf. - Patient Problems (1) Cellulitis Current Visit: No Status: Acute Code(s): L03.90 - CELLULITIS, UNSPECIFIED SNOMED Code(s): 983543133 Comment: - Failed outpatient treatment with cephalexin. - Continue cefazolin. - He alreadys wears a lymphedema pump at home and wraps his LE too. - Amlodipine was discontinued in the past with no change in his edema. Pt states he has had problems with his leg for 4 years. (2) CKD (chronic kidney disease) Current Visit: No Status: Chronic Code(s): N18.9 - CHRONIC KIDNEY DISEASE, UNSPECIFIED SNOMED Code(s): 828544818 Comment: [employer] ESTATE ACQUISITION ANALYST 1.7 vs prior 1.6 in Dec. Overall rising trend over last year though. - Stage 3 PVR by bladder scan ordered. (3) Lumbar stenosis Current Visit: No Status: Acute Code(s): M48.06 - SPINAL STENOSIS, LUMBAR REGION * DO NOT USE * SNOMED Code(s): 34056470 Comment: - S/P L1-2 laminectomy in October. MRI report 02/06/17 stenosis resolved, mild to mod lumbar spondolysis present. (4) CAD (coronary artery disease) Current Visit: No Status: Acute Code(s): I25.10 - ATHSCL HEART DISEASE OF [place] CORONARY ARTERY W/O ANG PCTRS SNOMED Code(s): 82975891 Comment: - Stable. - Continue Aspirin, metoprolol and statin. (5) Dermatitis Current Visit: Yes Status: Acute Code(s): L30.9 - DERMATITIS, UNSPECIFIED SNOMED Code(s): 82417047 Comment: Area on L buttock could be fungal. PO fluconazole ordered. (6) Falls frequently Current Visit: Yes Status: Acute Code(s): R29.6 - REPEATED FALLS SNOMED Code(s): 820452159 Comment: Consider change in level of care. Continue OT/PT. (7) Hypothyroidism Current Visit: No Status: Chronic Code(s): E03.9 - HYPOTHYROIDISM, UNSPECIFIED SNOMED Code(s): 30042670 Comment: - Continue synthroid (325mcg) TSH wnl 03/11/17. (8) Lymphedema Current Visit: No Status: Chronic Code(s): I89.0 - LYMPHEDEMA, NOT ELSEWHERE CLASSIFIED SNOMED Code(s): 230888068 Comment: on ancef for question of cellulitis given erythema, slight leukocytosis. Continue torsemide, daily weights. (9) COPD (chronic obstructive pulmonary disease) Current Visit: No Status: Chronic Code(s): J44.9 - CHRONIC OBSTRUCTIVE PULMONARY DISEASE, UNSPECIFIED SNOMED Code(s): 71308898 Comment: Continue mometasone/formoterol. (10) Morbid obesity Current Visit: Yes Status: Acute Code(s): E66.01 - MORBID (SEVERE) OBESITY DUE TO EXCESS CALORIES SNOMED Code(s): 733009382 Comment: BMI 49.0. Status and Disposition: medicine inpatient. Likely needs SNF
[2017-03-14] MEDS: Atorvastatin* 80 MG TAB PO SCH (17:59)
[2017-03-15] MEDS: Heparin VIAL(*) 5000 UNITS/ML VIAL (FIVE THOUSAND) SUBCUT SCH ×3 (05:25→20:40)
[2017-03-15] MEDS: Levothyroxine TAB* 175 MCG TAB PO SCH (05:25)
[2017-03-15] MEDS: Levothyroxine TAB* 150 MCG TAB PO SCH (05:25)
[2017-03-15] MEDS: Mometasone/Formoter 200/5 MDI INH SCH ×2 (08:10→19:56)
[2017-03-15] MEDS: Gabapentin CAP(*) 300 MG PO SCH ×2 (08:29→20:40)
[2017-03-15] MEDS: Lisinopril TAB* 10 MG PO SCH (08:30)
[2017-03-15] MEDS: Torsemide TAB* 20 MG PO SCH ×2 (08:30→18:18)
[2017-03-15] MEDS: Fluconazole 100 MG TAB* TAB PO SCH (08:30)
[2017-03-15] MEDS: amLODIPine TAB* 5 MG PO SCH (08:30)
[2017-03-15] MEDS: Aspirin EC Low Dose* 81 MG TAB.EC PO SCH (08:30)
[2017-03-15] MEDS: ceFAZolin 1 GM VIAL(*) 1 GM in NS 0.9% 50 ML* 50 ML IVPB SCH ×2 (08:30→20:39)
[2017-03-15] MEDS: Metoprolol Succinate XL TAB* 50 MG PO SCH (08:30)
[2017-03-15] MEDS: Acetaminophen TAB* 325 MG PO PRN ×2 (12:05→20:57)
[2017-03-15] MEDS ORDERED: oxyCODONE TAB* 5 MG TAB PO PRN (13:26)
--- NOTE | 2017-03-15 13:43 | PN ---
Subjective Date of Service: 03/15/17 Interval History: No new c/o. Objective Active Medications: Acetaminophen (Tylenol Tab*) 650 mg PO Q4H PRN PRN Reason: FEVER/PAIN Last Admin: 03/15/17 12:05 Dose: 650 mg Amlodipine Besylate (Norvasc Tab*) 10 mg PO QAM [facility] Last Admin: 03/15/17 08:30 Dose: 10 mg Aspirin (Aspirin Ec Low Dose*) 81 mg PO DAILY [facility] Last Admin: 03/15/17 08:30 Dose: 81 mg Atorvastatin Calcium (Lipitor*) 80 mg PO QPM [facility] Last Admin: 03/14/17 17:59 Dose: 80 mg Cefuroxime Axetil (Ceftin Tab(*)) 500 mg PO BID [facility] Fluconazole (Diflucan 100 Mg Tab*) 200 mg PO DAILY [facility] Last Admin: 03/15/17 08:30 Dose: 200 mg Gabapentin (Neurontin Cap(*)) 300 mg PO BID [facility] Last Admin: 03/15/17 08:29 Dose: 300 mg Heparin Sodium (Porcine) (Heparin Vial(*)) 5,000 units SUBCUT Q8HR [facility] Last Admin: 03/15/17 05:25 Dose: 5,000 units Cefazolin Sodium 1 gm/ Sodium (Chloride) 50 mls @ 200 mls/hr IVPB Q12H [facility] Last Admin: 03/15/17 08:30 Dose: 200 mls/hr Levothyroxine Sodium (Synthroid Tab*) 175 mcg PO DAILY@0600 [facility] Last Admin: 03/15/17 05:25 Dose: 175 mcg Levothyroxine Sodium (Synthroid Tab*) 150 mcg PO DAILY@0600 [facility] Last Admin: 03/15/17 05:25 Dose: 150 mcg Lisinopril (Prinivil Tab*) 20 mg PO DAILY [facility] Last Admin: 03/15/17 08:30 Dose: 20 mg Metoprolol Succinate (Toprol Xl Tab*) 50 mg PO QAM [facility] Last Admin: 03/15/17 08:30 Dose: 50 mg Mometasone Furoate/Formoterol Fumar (Dulera 200/5 Mdi*) 2 puff INH BID [facility] Last Admin: 03/15/17 08:10 Dose: 2 puff Ondansetron HCl (Zofran Inj*) 4 mg IV Q6H PRN PRN Reason: NAUSEA Oxycodone HCl (Roxycodone Tab*) 5 mg PO Q4H PRN PRN Reason: PAIN Torsemide (Demadex*) 40 mg PO QPM [facility] Last Admin: 03/14/17 17:59 Dose: 40 mg Torsemide (Demadex*) 60 mg PO QAM [facility] Last Admin: 03/15/17 08:30 Dose: 60 mg Vital Signs - 8 hr 03/15/17 03/15/17 03/15/17 07:27 08:00 08:11 Temperature 97.4 F Pulse Rate 59 68 Respiratory 20 18 18 Rate Blood Pressure 119/59 (mmHg) O2 Sat by Pulse 95 97 Oximetry 03/15/17 08:29 Temperature Pulse Rate Respiratory 16 Rate Blood Pressure (mmHg) O2 Sat by Pulse Oximetry Oxygen Devices in Use Now: Nasal Cannula Appearance: Alert, in a chair. In good spirits. Looks comfortable. Eyes: No Scleral Icterus Extremities: No Clubbing, Cyanosis, - - R leg bandaged. Skin: No Nodules or Sclerosis Neurological: Alert and Oriented x 3, NL Sensation Result Diagrams: 03/14/17 07:35 03/12/17 06:41 Additional Lab and Data: Laboratory Results - last 24 hr 03/11/17 03/12/17 03/12/17 22:12 04:55 06:35 WBC 13.5 H RBC 3.62 L Hgb 10.1 L Hct 32 L MCV 89 MCH 28 MCHC 31 RDW 15 Plt Count 169 MPV 9 Neut % (Auto) 86.5 H Lymph % (Auto) 9.8 L Franklin % (Auto) 3.2 Eos % (Auto) 0.1 Baso % (Auto) 0.4 Absolute Neuts (auto) 11.7 H Absolute Lymphs (auto) 1.3 Absolute Monos (auto) 0.4 Absolute Eos (auto) 0 Absolute Basos (auto) 0 Absolute Nucleated RBC 0.01 Nucleated RBC % 0.1 Sodium Potassium Chloride Carbon Dioxide Anion Gap BUN Creatinine Est GFR ( Amer) Est GFR (Non-Af Amer) BUN/Creatinine Ratio Glucose Calcium Troponin I 0.01 Urine Color Yellow Urine Appearance Clear Urine pH 5.0 Ur Specific [place] 1.015 Urine Protein Negative Urine Ketones Negative Urine Blood Negative Urine Nitrate Negative Urine Bilirubin Negative Urine Urobilinogen Negative Ur Leukocyte Esterase Negative Urine Glucose Negative 03/12/17 06:41 WBC RBC Hgb Hct MCV MCH MCHC RDW Plt Count MPV Neut % (Auto) Lymph % (Auto) Franklin % (Auto) Eos % (Auto) Baso % (Auto) Absolute Neuts (auto) Absolute Lymphs (auto) Absolute Monos (auto) Absolute Eos (auto) Absolute Basos (auto) Absolute Nucleated RBC Nucleated RBC % Sodium 137 Potassium 4.7 Chloride 102 Carbon Dioxide 26 Anion Gap 9 BUN 66 H Creatinine 1.76 H Est GFR ( Amer) 48.4 Est GFR (Non-Af Amer) 37.6 BUN/Creatinine Ratio 37.5 H Glucose 154 H Calcium 9.1 Troponin I Urine Color Urine Appearance Urine pH Ur Specific [place] Urine Protein Urine Ketones Urine Blood Urine Nitrate Urine Bilirubin Urine Urobilinogen Ur Leukocyte Esterase Urine Glucose Microbiology and Other Data: Microbiology 03/11/17 14:06 Nasal Influenza Types A,B Antigen (ANA) - Final Specimen received for Influenza A/B Molecular testing Assess/Plan/Problems-Billing Assessment: 76 male PMH CAD s/p CABG and stent, diastolic CHF (EF 50-55%) chronic lymphadema much worse on right presenting with 3 falls in 24 hours. Likely needs placement at SNF. On ancef for ?cellulitis near lymphadema right calf. - Patient Problems (1) Cellulitis Current Visit: No Status: Acute Code(s): L03.90 - CELLULITIS, UNSPECIFIED SNOMED Code(s): 117523438 Comment: - Failed outpatient treatment with cephalexin. - Continue cefazolin, change to cefuroxime 500 mg bid on transfer to SNF. - Family will bring his lymphedema pump to [facility]. - Amlodipine was discontinued in the past with no change in his edema. Pt states he has had problems with his leg for 4 years. (2) CKD (chronic kidney disease) Current Visit: No Status: Chronic Code(s): N18.9 - CHRONIC KIDNEY DISEASE, UNSPECIFIED SNOMED Code(s): 928041808 Comment: BAR [employer] MULTIPLE SPINDLE 1.7 vs prior 1.6 in Dec. Overall rising trend over last year though. - Stage 3 PVR by bladder scan ordered. (3) Lumbar stenosis Current Visit: No Status: Acute Code(s): M48.06 - SPINAL STENOSIS, LUMBAR REGION * DO NOT USE * SNOMED Code(s): 55643107 Comment: - S/P L1-2 laminectomy in October. MRI report 02/06/17 stenosis resolved, mild to mod lumbar spondolysis present. Dr. Mendoza discussed management with patient 03/14. (4) CAD (coronary artery disease) Current Visit: No Status: Acute Code(s): I25.10 - ATHSCL HEART DISEASE OF [place] CORONARY ARTERY W/O ANG PCTRS SNOMED Code(s): 84812907 Comment: - Stable. - Continue Aspirin, metoprolol and statin. (5) Dermatitis Current Visit: Yes Status: Acute Code(s): L30.9 - DERMATITIS, UNSPECIFIED SNOMED Code(s): 88031028 Comment: Area on L buttock could be fungal. PO fluconazole ordered, last day 03/23. (6) Falls frequently Current Visit: Yes Status: Acute Code(s): R29.6 - REPEATED FALLS SNOMED Code(s): 276614656 Comment: Transfer to [facility] 03/16. Continue OT/PT. (7) Hypothyroidism Current Visit: No Status: Chronic Code(s): E03.9 - HYPOTHYROIDISM, UNSPECIFIED SNOMED Code(s): 92601872 Comment: - Continue synthroid (325mcg) TSH wnl 03/11/17. (8) Lymphedema Current Visit: No Status: Chronic Code(s): I89.0 - LYMPHEDEMA, NOT ELSEWHERE CLASSIFIED SNOMED Code(s): 033996498 Comment: on ancef for question of cellulitis given erythema, slight leukocytosis. Continue torsemide, daily weights. (9) COPD (chronic obstructive pulmonary disease) Current Visit: No Status: Chronic Code(s): J44.9 - CHRONIC OBSTRUCTIVE PULMONARY DISEASE, UNSPECIFIED SNOMED Code(s): 48002374 Comment: Continue mometasone/formoterol. (10) Morbid obesity Current Visit: Yes Status: Acute Code(s): E66.01 - MORBID (SEVERE) OBESITY DUE TO EXCESS CALORIES SNOMED Code(s): 879723069 Comment: BMI 49.0. Status and Disposition: Transfer to [facility] 03/16.
[2017-03-15] MEDS: Atorvastatin* 80 MG TAB PO SCH (18:18)
[2017-03-16] MEDS: Levothyroxine TAB* 150 MCG TAB PO SCH (05:50)
[2017-03-16] MEDS: Heparin VIAL(*) 5000 UNITS/ML VIAL (FIVE THOUSAND) SUBCUT SCH (05:50)
[2017-03-16] MEDS: Levothyroxine TAB* 175 MCG TAB PO SCH (05:50)
[2017-03-16 06:01] LABS: EGFR Non-African American 45.6 (>60)
--- NOTE | 2017-03-16 08:43 | PN ---
Progress Note - Progress Note Date of Service: 03/16/17 Note: Time spent on discharge 50 minutes.
[2017-03-16] MEDS: Fluconazole 100 MG TAB* TAB PO SCH (08:55)
[2017-03-16] MEDS: Lisinopril TAB* 10 MG PO SCH (08:56)
[2017-03-16] MEDS: Aspirin EC Low Dose* 81 MG TAB.EC PO SCH (08:56)
[2017-03-16] MEDS: ceFAZolin 1 GM VIAL(*) 1 GM in NS 0.9% 50 ML* 50 ML IVPB SCH (08:56)
[2017-03-16] MEDS: Gabapentin CAP(*) 300 MG PO SCH (08:56)
[2017-03-16] MEDS: Torsemide TAB* 20 MG PO SCH (08:56)
[2017-03-16] MEDS: amLODIPine TAB* 5 MG PO SCH (08:56)
[2017-03-16] MEDS: Metoprolol Succinate XL TAB* 50 MG PO SCH (08:56)
[2017-03-16] MEDS: Mometasone/Formoter 200/5 MDI INH SCH (09:14)
[2017-03-16] MEDS: Acetaminophen TAB* 325 MG PO PRN (09:34)
--- NOTE | 2017-03-16 09:48 | TRS ---
CC: Dr. Fong; [facility] * DISCHARGE SUMMARY: DATE OF ADMISSION: 03/11/17 DATE OF DISCHARGE: 03/16/17. HOSPITAL COURSE: This is a 76-year-old man who presented to the emergency room after a fall. He was outside and landed in a snow bank. His neighbor helped him get up. In the emergency room, he was found to have cellulitis of his right leg. He was given intravenous antibiotics. He was then changed to oral antibiotics. He requires a lot of dressings. He has a lymphedema pump at home, which he will bring with him to the long-term facility to use there as he did at home. He is unable to walk because of the discomfort in his leg, as well as the swelling. FINAL DIAGNOSES: 1. Cellulitis, right leg. 2. Chronic kidney disease. 3. Lumbar stenosis. 4. Coronary artery disease. 5. Dermatitis, left buttocks, question fungal. 6. Frequent falls. 7. Hypothyroidism. 8. Lymphedema. 9. Chronic obstructive pulmonary disease. 10. Morbid obesity. DISCHARGE MEDICATIONS: 1. Acetaminophen 650 mg every 4 hours p.r.n. 2. Atorvastatin 80 mg daily. 3. Cefuroxime 500 mg b.i.d. 4. Fluconazole 200 mg daily. 5. Levothyroxine 325 mcg daily. 6. Mometasone formoterol 200/5 two puffs b.i.d. 7. Oxycodone 5 mg every 4 hours p.r.n. 8. Amlodipine 10 mg daily. 9. Torsemide 60 mg in the morning, 40 mg in the p.m. 10. Albuterol inhaler 1 puff every 6 hours p.r.n. 11. Metoprolol succinate 50 mg daily. 12. Gabapentin 300 mg b.i.d. 13. Aspirin 81 mg daily. 14. Lisinopril 20 mg daily. The patient was transferred to [facility] for rehabilitation. [id number]/[facility] #: [id number] NATHALY
[2017-03-16 12:16] VITALS: BP 132/53
[2017-03-16] MEDS ORDERED: ceFUROXime TAB(*) 250 MG PO SCH (21:00)
== END 2017-03-16 14:40 | DRG 603 ==
LOC: ED 11:39 → MEDTELE 16:30
PROVIDERS: ADMIT Internal Medicine; ATTEND Internal Medicine
DX: L03.115 Cellulitis of right lower limb (principal); E66.01 Morbid (severe) obesity due to excess calories; I13.0 Hypertensive heart and chronic kidney disease with heart failure and stage 1 through stage 4 chronic kidney disease, or unspecified chronic kidney disease; I50.32 Chronic diastolic (congestive) heart failure; J44.9 Chronic obstructive pulmonary disease, unspecified; I25.10 Atherosclerotic heart disease of native coronary artery without angina pectoris; E78.5 Hyperlipidemia, unspecified; M19.90 Unspecified osteoarthritis, unspecified site; R40.2362 Coma scale, best motor response, obeys commands, at arrival to emergency department; R40.2142 Coma scale, eyes open, spontaneous, at arrival to emergency department; R40.2252 Coma scale, best verbal response, oriented, at arrival to emergency department; M48.061 Spinal stenosis, lumbar region without neurogenic claudication; L30.9 Dermatitis, unspecified; G47.33 Obstructive sleep apnea (adult) (pediatric); E03.9 Hypothyroidism, unspecified; G89.29 Other chronic pain; I89.0 Lymphedema, not elsewhere classified; N18.9 Chronic kidney disease, unspecified; Z80.0 Family history of malignant neoplasm of digestive organs; Z82.49 Family history of ischemic heart disease and other diseases of the circulatory system; Z86.718 Personal history of other venous thrombosis and embolism; Z87.442 Personal history of urinary calculi; B48.8 Other specified mycoses; Z68.42 Body mass index [BMI] 45.0-49.9, adult; Z88.5 Allergy status to narcotic agent; Z95.1 Presence of aortocoronary bypass graft; Z95.5 Presence of coronary angioplasty implant and graft; Z91.81 History of falling
CPT/HCPCS: 36415; 70450; 71046; 72170; 80048; 80053; 81003; 83605; 83880; 84443; 84484; 85025; 85610; 87086; 87502; 90715; 93005; 94640; 94760; A9270-GY; J0690; J1644; J2930

== ENCOUNTER 2017-04-05 17:05 | Observation (INO) | payer MEDICARE, BC ==
[2017-04-05] MEDS ORDERED: Albuterol/Ipratropium NEB.SOL* Albuterol 2.5 MG/Ipratropium 0.5 MG 3 ML INH ONE ×3 (17:27→20:07)
--- NOTE | 2017-04-05 18:19 | RAD ---
INDICATION: Short of breath COMPARISON: March 11, 2017 TECHNIQUE: An AP portable view obtained at 1755 hours is submitted. FINDINGS: Bones/Soft Tissues: There are no acute bony findings. There is prior sternotomy Cardiomediastinal: The cardiac silhouette remains enlarged. The pulmonary vascularity is normal. Lungs: There are no infiltrates. Pleura: There are no pleural effusions. Other: None IMPRESSION: Enlarged cardiac silhouette. Postsurgical changes.
[2017-04-05 18:28] LABS: ABS Basophils 0.1 10^3/ul (0-0.2); ABS Eosinophils 0.2 10^3/ul (0-0.6); ABS Lymphocytes 1.4 10^3/ul (1.0-4.8); ABS Monocytes 0.5 10^3/ul (0-0.8); ABS Neutrophils 5.2 10^3/ul (1.5-7.7); ABS Nucleated RBC 0 10^3/ul; Eosinophil % 3.1 % (0-6); Hematocrit 36 % (42-52); Hemoglobin 11.3 g/dl (14.0-18.0); Lymphocyte % 18.4 % (25-47); Mean Corpuscular HGB Conc 32 g/dl (31-36); Mean Corpuscular Hemoglobin 29 pg (27-31); Mean Corpuscular Volume 90 fL (80-94); Mean Platelet Volume 9 um3 (7.4-10.4); Nucleated Red Blood Cells % 0; Platelet Count 118 10^3/ul (150-450); Red Blood Count 3.95 10^6/ul (4.0-5.4); Red Cell Distribution Width 16 % (10.5-15); White Blood Count 7.3 10^3/ul (3.5-10.8)
[2017-04-05] MEDS ORDERED: methylPREDNISolone 125 MG* 2 ML VIAL IV ONE (19:05)
[2017-04-05] MEDS ORDERED: Iodixanol* (CONTRAST) 320 MG/ML 100 ML SDV IV ONE (19:25)
--- NOTE | 2017-04-05 20:03 | RAD ---
INDICATION: Chest pain. Short of breath. Evaluate for pulmonary embolus. COMPARISON: Chest x-ray same day; CTA chest July 11, 2013 TECHNIQUE: Axial source images were obtained from the thoracic inlet to the hemidiaphragms following administration of [address] angiographic technique was utilized. Coronal and sagittal reconstructed images were acquired. CHEST FINDINGS: Neck/thyroid: The visualized neck to include the thyroid appear normal. Chest wall: There are no acute abnormalities of the bony thorax or chest wall. There is no supraclavicular, infraclavicular, or axillary lymphadenopathy. Lungs : There is mild linear change in the right middle and lower lobes most consistent with atelectasis. Cardiomediastinal structures: There is no CT evidence of acute pulmonary embolic disease. The heart is normal in enlarged. There is CABG. There is no pericardial effusion. There is no evidence of aortic aneurysm or dissection. There are atherosclerotic changes. There are multiple small distal lymph nodes but these are not technically enlarged by size criteria and remain unchanged. The esophagus appears normal. Pleura : There are no pleural-based masses or effusions. Other: There is cholelithiasis. IMPRESSION: 1. No CT evidence of acute pulmonary embolic disease. 2. Cardiomegaly, unchanged. 3. Borderline-enlarged distal lymph nodes without change. 4. Cholelithiasis, unchanged.
[2017-04-05] MEDS ORDERED: Acetaminophen TAB* 325 MG PO PRN (21:06)
[2017-04-05] MEDS ORDERED: Albuterol/Ipratropium NEB.SOL* Albuterol 2.5 MG/Ipratropium 0.5 MG 3 ML INH PRN (21:07)
[2017-04-05] MEDS: Heparin VIAL(*) 5000 UNITS/ML VIAL (FIVE THOUSAND) SUBCUT SCH (22:44)
[2017-04-05] MEDS: oxyCODONE TAB* 5 MG TAB PO PRN (22:44)
--- NOTE | 2017-04-05 22:55 | HP ---
CC: Dr. Fong * [facility] MEDICINE HISTORY AND PHYSICAL: DATE OF ADMISSION: 04/05/17 PRIMARY CARE PHYSICIAN: Dr. Fong. ATTENDING PHYSICIAN: Dr. Alisha Pratt * (dictation provided by Leslie Abdi NP) . CHIEF COMPLAINT: Shortness of breath. HISTORY OF PRESENT ILLNESS: Mr. Benjamin is a 76-year-old male with a past medical history of morbid obesity, COPD and extensive lymphedema in his right lower extremity as well as coronary artery disease with stent and CABG, who presents to the hospital today with concern for shortness of breath. Mr. Benjamin was discharged from our hospital to [facility] on 03/16/17. He had been in the hospital for treatment of right lower extremity cellulitis. At [facility], he had extensive support from an edema specialist who helped wrap his right lower extremity lymphedema and has reduced the size of his leg by at least half. The patient was discharged from [facility] on after having extensive teaching on how to continue to wrap his leg at home. The patient states that he was feeling quite well initially on returning home; however, this morning he noted that he was suddenly short of breath. He went to get out of a chair and felt that he was too short of breath to get up. This persisted through the morning and therefore he ultimately called EMS to be brought to the emergency room. He did try using his albuterol inhalers, but they did not seem to improve his symptoms. The patient denies any fever. He has had no chills. He reports having a bit of a cough when he was at [facility], but this had completely resolved. He has had no chest pain. He has had no nausea, vomiting , diarrhea, or abdominal pain. In the emergency room, Mr. Benjamin had labs which showed no leukocytosis. His vital signs showed no fever. His BUN and creatinine were at baseline. His flu swab was negative. He had a chest x-ray and chest thorax CTA, which did not show any pulmonary parenchymal disease. PAST MEDICAL HISTORY: 1. Morbid obesity. 2. COPD. 3. Lymphedema, most prominently to the right lower extremity. 4. Hypothyroidism. 5. Coronary artery disease with history of triple vessel CABG and stent. 6. Laminectomy L1-L2. 7. Tonsillectomy. 8. CKD stage 2 to 3. 9. Hypertension. 10. Hyperlipidemia. MEDICATIONS: As outpatient are: 1. Albuterol 1 puff q.6 hours p.r.n. 2. Tylenol 650 mg q.4 hours p.r.n. 3. Amlodipine 10 mg p.o. q.a.m. 4. Aspirin 81 mg p.o. q.a.m. 5. Atorvastatin 80 mg p.o. q.p.m. 6. Cefuroxime 500 mg p.o. b.i.d. 7. Fluconazole 200 mg p.o. daily. 8. Gabapentin 300 mg p.o. b.i.d. 9. Levothyroxine 325 mcg p.o. q.a.m. except on Sundays when he takes 325 mcg. 10. Lisinopril 20 mg p.o. daily. 11. Metoprolol succinate 50 mg p.o. q.a.m. 12. Dulera 200/5 two puffs inhaled b.i.d. 13. Oxycodone 5 mg p.o. q.4 hours p.r.n. 14. Torsemide 60 mg in the a.m. and 40 mg in the p.m. ALLERGIES: MORPHINE. FAMILY HISTORY: The patient reports his mother related to colon cancer, his father at the age of 57 of unknown causes. SOCIAL HISTORY: No report of alcohol, tobacco, or drug use. The patient lives with his . He states that his son, Hamilton would be the healthcare proxy. REVIEW OF SYSTEMS: A 14-point review of systems was completed with Mr. Benjamin and all those not mentioned above were negative. PHYSICAL EXAMINATION GENERAL: Mr. Benjamin is lying in the bed. He is in no acute distress. VITAL SIGNS: Temperature 99.1, pulse rate 68, respiratory rate 19, O2 saturation 95% on 2 L nasal cannula, blood pressure 111/61. LUNGS: There is some expiratory wheezing bilaterally, it is minimal. HEART: S1, S2. No murmur, rub, or gallop and regular. ABDOMEN: Soft, obese, nontender. EXTREMITIES: The patient has evidence of chronic lymphedema to right lower extremity. He has extensive Rodney wrapping with padding up to the thigh. There is very minimal skin breakdown on the right great toe on the medial aspect, otherwise the skin is intact. There is no evidence of acute erythema or infection. NEUROLOGIC: He is alert, he is oriented x3. He moves all extremities equally. There is no facial asymmetry or focal weakness. Extraocular movements are intact. DIAGNOSTIC STUDIES/LAB DATA: Sodium 139, potassium 5.6, chloride 106, serum carbonate 25, BUN 40, creatinine 1.33, glucose is 97. WBC is 7.3, hemoglobin 11.3, hematocrit 36, platelet count 118. Flu swabs are negative. Chest x-ray is ready as follows: "Enlarged cardiac silhouette, postsurgical changes." The chest thorax CTA is read as follows: "No CT evidence of acute pulmonary embolic disease. Cardiomegaly unchanged. Borderline enlarged distal lymph nodes without change. Cholelithiasis unchanged." ASSESSMENT AND PLAN: Mr. Benjamin is a 76-year-old male with a past medical history of coronary artery disease with stent and coronary artery bypass grafting, chronic obstructive pulmonary disease, extensive right lower extremity lymphedema and hypertension, who presents today to the hospital with concern for acute onset of shortness of breath, which we suspect is secondary to chronic obstructive pulmonary disease exacerbation. Our plan is for observation in the hospital for the followin. Chronic obstructive pulmonary disease exacerbation: The patient has no evidence of congestive heart failure. His BNP is normal and his chest x-ray shows no evidence of vascular congestion. He has no pulmonary embolus noted on CTA of chest. Therefore, based on his history of chronic obstructive pulmonary disease and wheezing on auscultation, I think he has a chronic obstructive pulmonary disease exacerbation. He has received methylprednisolone in the emergency room, and is currently satting well on 2 L nasal cannula. Plan to initiate prednisone 60 mg in the a.m. He will also have duonebs and oxygen titrated as needed. 2. Lymphedema. Plan to continue extensive leg wrapping with support of instructions from patient and his . The patient states he has been on the same medication regimen as he was discharged on 03/16/17 from our hospital, which included cefuroxime and Diflucan. I think it would be important to review the actual list when the returns in the morning to make sure that he is continuing on this therapy. His legs show no evidence of infection, but I believe he may be on suppressive therapy under the direction of Dr. Lozano. 3. Hyperkalemia. I see no clear reason why the patient has hyperkalemia today. Plan for lactulose x 1 now and to repeat in AM. 4. Coronary artery disease. Continue aspirin and atorvastatin. 5. Hypertension. Continue amlodipine, torsemide, metoprolol, lisinopril. 6. Neuropathy. Continue gabapentin. 7. Hypothyroidism. Continue levothyroxine. 8. Chronic kidney disease. At baseline, try to avoid nephrotoxins as possible. 9. Hyperlipidemia. Continue atorvastatin. 10. Code status is DNR. 11. Disposition to the medical floor. TIME SPENT: Approximately 60 minutes were spent on the admission of this patient, more than half the time was spent with patient at the bedside reviewing the events leading up to this hospitalization, performing the physical examination, and reviewing my plan of care. LESLIE ABDI NP [id number]/[facility] #: [id number] NATHALY
[2017-04-06] MEDS: Heparin VIAL(*) 5000 UNITS/ML VIAL (FIVE THOUSAND) SUBCUT SCH ×2 (05:58→14:31)
[2017-04-06] MEDS ORDERED: Levothyroxine TAB* 100 MCG TAB PO SCH (06:00)
[2017-04-06] MEDS ORDERED: Levothyroxine TAB* 125 MCG TAB PO SCH (06:00)
[2017-04-06] MEDS ORDERED: Aspirin EC Low Dose* 81 MG TAB.EC PO SCH (09:00)
[2017-04-06] MEDS ORDERED: predniSONE TAB* 20 MG PO SCH (09:00)
[2017-04-06] MEDS ORDERED: Mometasone/Formoter 200/5 MDI INH SCH (09:00)
[2017-04-06] MEDS ORDERED: Gabapentin CAP(*) 300 MG PO SCH (09:00)
[2017-04-06] MEDS ORDERED: Torsemide TAB* 20 MG PO SCH ×2 (09:00→18:00)
[2017-04-06] MEDS ORDERED: ceFUROXime TAB(*) 250 MG PO SCH (09:00)
[2017-04-06] MEDS ORDERED: Metoprolol Succinate XL TAB* 50 MG PO SCH (09:00)
[2017-04-06] MEDS ORDERED: Lisinopril TAB* 10 MG PO SCH (09:00)
[2017-04-06] MEDS ORDERED: amLODIPine TAB* 5 MG PO SCH (09:00)
[2017-04-06] MEDS ORDERED: Fluconazole 100 MG TAB* TAB PO SCH (09:00)
[2017-04-06] MEDS ORDERED: DOXYcycline CAP(*) 100 MG PO SCH (09:00)
[2017-04-06] MEDS: oxyCODONE TAB* 5 MG TAB PO PRN (10:17)
[2017-04-06 15:41] VITALS: BP 153/66
[2017-04-06] MEDS ORDERED: Atorvastatin* 80 MG TAB PO SCH (18:00)
--- NOTE | 2017-04-07 10:03 | DS ---
DISCHARGE SUMMARY: DATE OF ADMISSION: 04/05/17 DATE OF DISCHARGE: 04/06/17 PRIMARY CARE PHYSICIAN: Dr. Fong. ECD: Dr. [place]. ATTENDING PHYSICIAN: Manju Barroso DO. PRINCIPAL DISCHARGE DIAGNOSIS: Chronic obstructive pulmonary disease exacerbation. SECONDARY DISCHARGE DIAGNOSES: 1. Lymphedema. 2. Hyperkalemia. 3. Hypertension. 4. Coronary artery disease. 5. Chronic kidney disease. 6. Neuropathy. DISCHARGE MEDICATIONS: 1. DuoNeb p.r.n. with a new nebulizer. 2. Amlodipine 5 mg daily. 3. Aspirin 81 mg daily. 4. Atorvastatin 80 mg daily. 5. Fluconazole 200 mg daily. 6. Gabapentin 300 mg b.i.d. 7. Levothyroxine 125 mcg daily. 8. Metoprolol XL 50 mg daily. 9. Dulera two puffs b.i.d. 10. Oxycodone 5 mg q.4 p.r.n. 11. Prednisone 60 mg daily for 3 more days. 12. Torsemide 60 mg in the morning and 40 mg in the evening. 13. Albuterol inhaler q.6 p.r.n. 14. Hydrochlorothiazide 25 mg daily. Discontinued Medications: Lisinopril and cefuroxime. PHYSICAL EXAMINATION ON THE DAY OF DISCHARGE: Temperature 98 degrees, heart rate 64, pulse ox 100% on room air, blood pressure 153/66. General: Alert, obese man, in no distress. Breathing comfortably and able to talk in full sentences. HEENT: Moist mucosa. No pharyngeal exudates or erythema. Neck: No JVP. No lymphadenopathy. Chest: Regular rate and rhythm. PMI not displaced. Lungs: Clear bilaterally with scattered occasional wheezes. Abdomen : Soft, nontender, nondistended. No guarding or rebound. Extremities: Right lower extremity with marked lymphedema to the knee. No open skin or erythema. Left lower extremity with 2+ pitting edema. No erythema. HOSPITAL COURSE BY PROBLEM: 1. COPD exacerbation. Mr. Ann was just discharged from [facility] 4 days ago. He had gotten home and was doing fairly well; however, two days ago noted shortness of breath with ambulation that resolved in the emergency department when he received a nebulizer. 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 He was treated with standing nebulizers and prednisone and by the second day of admission was feeling back to baseline. He ambulated with his nurse and maintained a pulse ox of 97% on room air. I arranged for a nebulizer for him to have at home and I am prescribing DuoNeb p.r.n. He will take three more days of prednisone to complete his course of COPD treatment. Of note, a CT angiogram did not show PE in the emergency department but did show some atelectasis at the bases. I suspect he also has a component of obesity hypoventilation syndrome given his body habitus and he may be deconditioned given his recent hospitalization and discharge from alf facility. I recommend that he have pulmonary function tests if this has not been done to establish a diagnosis of COPD. 2. Lymphedema. He is to continue the dressing changes as prescribed by the physical therapist at [facility]. His is trained to do so daily. He came in on cefuroxime but it is unclear the purpose of this antibiotic. I discussed the case with Dr. Lozano who sees Mr. Benjamin as an outpatient and did not prescribe suppressive therapy for the lymphedema. I am discontinuing cefuroxime upon discharge. 3. Hyperkalemia. I suspect this is related to the use of an CAROLINE inhibitor especially in the setting of CKD. I am discontinuing his lisinopril and starting him no hydrochlorothiazide instead. I made this clear in his discharge instructions that he is to stop taking lisinopril and start taking hydrochlorothiazide and follow up with his primary care physician for a blood pressure check. 4. Chronic kidney disease. His renal function is at baseline on this admission at 1.3. 5. Coronary artery disease, status post CABG. Continue aspirin and atorvastatin and metoprolol. DISPOSITION: Mr. Benjamin is discharged to home on 04/06/17 at 4 p.m. with his . He is to follow up with Dr. Fong in one week. [id number]/[facility] #: [id number] MTDD
[2017-04-12] MEDS ORDERED: Levothyroxine TAB* 175 MCG TAB PO SCH (06:00)
--- NOTE | 2017-04-12 14:17 | ED ---
Keven Ortiz Stephanie, scribed for Montez Capone MD on 04/05/17 at 1852 . Shortness of Breath - HPI Summary HPI Summary: The pt is a 76 y/o M presenting to the ED with c/o SOB that began at 07:00 today after he woke up and attempted to make coffee. Symptoms include R LE edema. The pt denies current productive cough or abnormal urination. The pt states that he has recently been losing weight. He was a pt at [facility] for 3 weeks and was recently discharged. The pt reports that he has been checked for blood clots in the R leg. He sleeps on a recliner s/p back surgery in October 2016. The pt is not on home O2. - History of Current Complaint Chief Complaint: EDShortnessOfBreath Time Seen by Provider: 04/05/17 18:29 Hx Obtained From: Patient, Family/Neuro Psych Sales Specialist - Onset/Duration: Sudden Onset, Lasting Hours - 11, Still Present Timing: Constant Current Severity: Mild Dyspnea At: Exertion Aggrevating Factors: Nothing Alleviating Factors: Nothing Associated Signs & Symptoms: Edema - R LE - Allergy/Home Medications Allergies/Adverse Reactions: Allergies Allergy/AdvReac Type Severity Reaction Status Date / Time Morphine AdvReac Intermediate Altered Verified 04/05/17 17:12 Mental Status PMH/Surg Hx/FS Hx/Imm Hx Endocrine/Hematology History: Reports: Hx Thyroid Disease Denies: Hx Diabetes Cardiovascular History: Reports: Hx Cardiomegaly, Hx Congestive Heart Failure, Hx Coronary Artery Disease, Hx Deep Vein Thrombosis - BL LEGS, Hx Hypercholesterolemia - HLD, Hx Hypertension, Hx Valvular Heart Disease - AORTIC VALVE Denies: Hx Pacemaker/ICD Respiratory History: Reports: Hx Sleep Apnea - CPAP, Other Respiratory Problems/ Disorders - PLEURAL EFFUSION Denies: Hx Asthma - according to patient, Hx Chronic Obstructive Pulmonary Disease (COPD) - according to patient History: Reports: Hx Kidney Stones Musculoskeletal History: Reports: Hx Arthritis, Hx Back Problems - spinal stenosis, Other Musculoskeletal History - spinal stenosis Sensory History: Reports: Hx Contacts or Glasses Denies: Hx Hearing Aid Opthamlomology History: Reports: Hx Contacts or Glasses Psychiatric History: Denies: Hx Panic Disorder - Cancer History Hx Chemotherapy: No - Surgical History Surgery Procedure, Year, and Place: THOROCENTESIS x 2. CABG 2006. CARDIAC STENT 03/2002. tonsils,. LUMBAR SURGERY 10/23 Hx Anesthesia Reactions: No - Immunization History Date of Tetanus Vaccine: current Date of Influenza Vaccine: 2014 Infectious Disease History: No Infectious Disease History: Denies: Hx Clostridium Difficile, Hx Hepatitis, Hx Human Immunodeficiency Virus (HIV), Hx of Known/Suspected MRSA, Hx Shingles, Hx Tuberculosis, Hx Known/ Suspected VRE, Hx Known/Suspected VRSA, History Other Infectious Disease, Traveled Outside the [place] in Last 30 Days - Family History Known Family History: Positive: Hypertension - Social History Occupation: Retired Lives: With Family Alcohol Use: None Hx Substance Use: No Substance Use Type: Reports: None Hx Tobacco Use: No Smoking Status (MU): Never Smoked Tobacco Review of Systems Negative: Fever, Chills Negative: Erythema Negative: Sore Throat Negative: Chest Pain Positive: Shortness Of Breath. Negative: Cough Negative: Abdominal Pain, Vomiting, Nausea Positive: no symptoms reported. Negative: dysuria, hematuria Positive: Edema - R LE. Negative: Myalgia Negative: Rash Neurological: Other - Negative: dizziness All Other Systems Reviewed And Are Negative: Yes Physical Exam - Summary Physical Exam Summary: Constitutional: Well-developed, Well-nourished, Alert. (-) Distressed Skin: Warm, Dry HENT: Normocephalic; Atraumatic Eyes: Conjunctiva normal Neck: Musculoskeletal ROM normal neck. (-) JVD, (-) Stridor, (-) Tracheal deviation Cardio: Rhythm regular, Heart sounds normal; Intact distal pulses; The pedal pulses are 2+ and symmetric. Radial pulses are 2+ and symmetric. (-) Murmur, mildly tachypnic Pulmonary/Chest wall: Effort normal. (-) Respiratory distress, (-) Rales, inspiratory and expiratory wheezes Abd: Soft, (-) Tenderness, (-) Distension, (-) Guarding, (-) Rebound Musculoskeletal: 2+ edema bilateral lower extremities Lymph: (-) Cervical adenopathy Neuro: Alert, Oriented x3 Psych: Mood and affect Normal Triage Information Reviewed: Yes Vital Signs On Initial Exam: Initial Vitals Temp Pulse Resp BP Pulse Ox 99.1 F 68 28 158/68 96 04/05/17 17:12 04/05/17 17:12 04/05/17 17:12 04/05/17 17:12 04/05/17 17:12 Vital Signs Reviewed: Yes Diagnostics - Vital Signs Vital Signs Temp Pulse Resp BP Pulse Ox 04/05/17 17:39 69 20 98 04/05/17 17:12 99.1 F 68 28 158/68 96 - Laboratory Lab Results: Lab Results 04/05/17 04/05/17 04/05/17 Range/Units 17:53 18:16 18:16 WBC 7.3 (3.5-10.8) 10^3/ul RBC 3.95 L (4.0-5.4) 10^6/ul Hgb 11.3 L (14.0-18.0) g/dl Hct 36 L (42-52) % MCV 90 (80-94) fL MCH 29 (27-31) pg MCHC 32 (31-36) g/dl RDW 16 H (10.5-15) % Plt Count 118 L (150-450) 10^3/ul MPV 9 (7.4-10.4) um3 Neut % (Auto) 70.3 (38-83) % Lymph % (Auto) 18.4 L (25-47) % [place] % (Auto) 7.5 (1-9) % Eos % (Auto) 3.1 (0-6) % Baso % (Auto) 0.7 (0-2) % Absolute Neuts (auto) 5.2 (1.5-7.7) 10^3/ul Absolute Lymphs (auto) 1.4 (1.0-4.8) 10^3/ul Absolute Monos (auto) 0.5 (0-0.8) 10^3/ul Absolute Eos (auto) 0.2 (0-0.6) 10^3/ul Absolute Basos (auto) 0.1 (0-0.2) 10^3/ul Absolute Nucleated RBC 0 10^3/ul Nucleated RBC % 0 Lactic Acid 0.6 (0.5-2.0) mmol/L Influenza A (Rapid) Negative (Negative) Influenza B (Rapid) Negative (Negative) Result Diagrams: 04/05/17 18:16 04/05/17 18:16 Lab Statement: Any lab studies that have been ordered have been reviewed, and results considered in the medical decision making process. - Radiology CXR Xray Interpretation: No Acute Changes Radiology Interpretation Completed By: Radiologist - Enlarged cardiac silhouette. Postsurgical changes. - CT CTA chest/thorax CT Interpretation: No Acute Changes CT Interpretation Completed By: Radiologist - 1. No CT evidence of acute pulmonary embolic disease. 2. Cardiomegaly, unchanged. 3. Borderline-enlarged distal lymph nodes without change. 4. Cholelithiasis, unchanged. - EKG 17:46 Cardiac Rate: NL EKG Rhythm: Sinus Rhythm - Rate in mid-60s BPM EKG Interpretation: RBBB, no STEMI Re-Evaluation - Re-Evaluation First Eval Re-Evaluation Time: 20:10 Change: Unchanged - Pt is still wheezing. Course/Dx - Course Course Of Treatment: CTA negative. Pt has significant wheezing and COPD exacerbation. Refractory to multiple nebulizer treatments and steroids. The pt will be admitted for further evaluation. - Diagnoses Provider Diagnoses: Hypoxemia, COPD exacerbation - Physician Notifications Discussed Care of Patient With: Leslie Abdi Instructed by Provider To: Admit As Inpatient Discharge - Discharge Plan Condition: Stable Disposition: ADMITTED TO [facility] Patient Education Materials: COPD (Chronic Obstructive Pulmonary Disease) (ED) , Hypoxemia (DC) Referrals: Zeeshan Fong MD [Primary Care Provider] - The documentation as recorded by the Keven rosenbaum Stephanie accurately reflects the service I personally performed and the decisions made by , Montez Capone MD.
== END 2017-04-06 18:15 | disposition home or self-care (01) ==
LOC: ED 17:05 → MED 21:02
PROVIDERS: ADMIT Pediatrics; ATTEND Internal Medicine
DX: J44.1 Chronic obstructive pulmonary disease with (acute) exacerbation (principal); I89.0 Lymphedema, not elsewhere classified; E87.5 Hyperkalemia; I10 Essential (primary) hypertension; I25.10 Atherosclerotic heart disease of native coronary artery without angina pectoris; N18.9 Chronic kidney disease, unspecified; G62.9 Polyneuropathy, unspecified; Z79.82 Long term (current) use of aspirin
CPT/HCPCS: 36415; 71045; 71275; 80048; 80053; 83605; 83880; 84484; 85025; 85379; 87040; 87502; 93005; 94640; 96374; 96375; 99284; A9270-GY; G0378; J1644; J2930; J7512; Q9967

== ENCOUNTER 2017-06-05 12:43 | Inpatient (IN) | payer MEDICARE, BC ==
[2017-06-05 15:02] LABS: ABS Basophils 0.1 10^3/ul (0-0.2); ABS Eosinophils 0.3 10^3/ul (0-0.6); ABS Lymphocytes 1.5 10^3/ul (1.0-4.8); ABS Monocytes 0.9 10^3/ul (0-0.8); ABS Neutrophils 7.9 10^3/ul (1.5-7.7); ABS Nucleated RBC 0 10^3/ul; Eosinophil % 2.9 % (0-6); Hematocrit 34 % (42-52); Hemoglobin 11.1 g/dl (14.0-18.0); Lymphocyte % 13.8 % (25-47); Mean Corpuscular HGB Conc 33 g/dl (31-36); Mean Corpuscular Hemoglobin 29 pg (27-31); Mean Corpuscular Volume 87 fL (80-94); Mean Platelet Volume 7.8 um3 (7.4-10.4); Nucleated Red Blood Cells % 0; Platelet Count 188 10^3/ul (150-450); Red Blood Count 3.86 10^6/ul (4.0-5.4); Red Cell Distribution Width 15 % (10.5-15); White Blood Count 10.7 10^3/ul (3.5-10.8)
--- NOTE | 2017-06-05 15:31 | RAD ---
INDICATION: Fall. Right foot pain COMPARISON: March 11, 2017 TECHNIQUE: 3 views were obtained. FINDINGS: The bony structures are very osteopenic. There is a comminuted intra-articular fracture of the proximal phalanx of the great toe. There may be a fracture of the head of the first metatarsal as well. No other definitive fractures are seen. There are prominent heel spurs. There is degenerative change of the midfoot. There are hammertoe deformities. There is diffuse soft tissue swelling with vascular calcifications. IMPRESSION: ACUTE FRACTURE OF THE GREAT TOE DESCRIBED.
--- NOTE | 2017-06-05 15:32 | RAD ---
INDICATION: Right wrist pain. Fall. COMPARISON: None TECHNIQUE: AP, lateral, and oblique views were obtained. FINDINGS: There is no acute bony change. The carpals articulate normally. There is minor radiocarpal osteoarthritis. There is mild diffuse soft tissue swelling about the wrist. IMPRESSION: SOFT TISSUE SWELLING. NO ACUTE FRACTURE.
--- NOTE | 2017-06-05 15:39 | RAD ---
Indication: Fall. Comparison: April 05, 2017 CT. Technique: Sitting AP and lateral chest views. Report: Cardiomegaly. Prominent ill-defined central pulmonary vasculature and mild prominence of the interstitial markings. Grossly clear pleural spaces. Negative for pneumothorax. Interrupted most superior median sternotomy wire as on the prior exam without concern. No osseous fractures visible. IMPRESSION: Mild pulmonary vascular congestion and interstitial edema. No traumatic injury evident.
[2017-06-05 15:40] LABS: EGFR Non-African American 43.9 (>60)
[2017-06-05] MEDS ORDERED: Furosemide IV* 10 MG/ML VIAL (40 MG) IV ONE (16:08)
[2017-06-05] MEDS ORDERED: Albuterol/Ipratropium NEB.SOL* Albuterol 2.5 MG/Ipratropium 0.5 MG 3 ML INH PRN (16:34)
[2017-06-05] MEDS ORDERED: Albuterol HFA INHALER* 8 gm MDI INH PRN (17:16)
--- NOTE | 2017-06-05 17:46 | ED ---
Hector Ortiz Jason, scribed for Mini Michael MD on 06/05/17 at 1542 . Complex/Multi-Sys Presentation - HPI Summary HPI Summary: This patient is a 76 year old M presenting to [facility] with a chief complaint of a fall since 1247 today. He states he was on his way here for an outpatient x-ray on the right wrist and right foot, which are secondary to a fall from yesterday. When the patient entered a hallway he lost balance, tripped, and fell. The pain he was experience before the fall today is the same after today s fall. Patient is being treated with Clindamycin which he said is improving his condition. The patient rates the pain 7/10 in severity. Symptoms aggravated by movement. Symptoms alleviated by nothing. Patient reports right wrist and right foot pain. Patient denies loss of consciousness. - History Of Current Complaint Chief Complaint: EDGeneral Time Seen by Provider: 06/05/17 13:41 Hx Obtained From: Patient Onset/Duration: Sudden Onset, Still Present Timing: Constant Aggravating Factor(s): nothing Alleviating Factor(s): nothing Associated Signs And Symptoms: Positive: Other - right wrist and right foot pain - Allergies/Home Medications Allergies/Adverse Reactions: Allergies Allergy/AdvReac Type Severity Reaction Status Date / Time morphine Allergy Altered Verified 06/05/17 13:59 Mental Status Home Medications: Home Medications Clindamycin Cap(NF) [Clindamycin Cap 300 mg Cap(NF)] 300 mg PO TID 06/05/17 [ History Confirmed 06/05/17] Rosuvastatin (NF) [Crestor (NF)] 40 mg PO DAILY 06/05/17 [History Confirmed ] Umeclidin/Vilant 62.5 MDI(NF) [ANORO 62.5/25 Ellipta DEVICE (NF)] 2 inh INH DAILY 06/05/17 [History Confirmed 06/05/17] PMH/Surg Hx/FS Hx/Imm Hx Previously Healthy: No Endocrine/Hematology History: Reports: Hx Thyroid Disease Denies: Hx Diabetes Cardiovascular History: Reports: Hx Cardiomegaly, Hx Congestive Heart Failure, Hx Coronary Artery Disease, Hx Deep Vein Thrombosis - BL LEGS, Hx Hypercholesterolemia - HLD, Hx Hypertension, Hx Valvular Heart Disease - AORTIC VALVE Denies: Hx Pacemaker/ICD Respiratory History: Reports: Hx Sleep Apnea - CPAP, Other Respiratory Problems/ Disorders - PLEURAL EFFUSION Denies: Hx Asthma - according to patient, Hx Chronic Obstructive Pulmonary Disease (COPD) - according to patient History: Reports: Hx Kidney Stones Denies: Hx Renal Disease Musculoskeletal History: Reports: Hx Arthritis, Hx Back Problems - spinal stenosis, Other Musculoskeletal History - spinal stenosis Sensory History: Reports: Hx Contacts or Glasses, Hx Hearing Problem Denies: Hx Hearing Aid Opthamlomology History: Reports: Hx Contacts or Glasses Psychiatric History: Denies: Hx Panic Disorder - Cancer History Hx Chemotherapy: No - Surgical History Surgery Procedure, Year, and Place: THOROCENTESIS x 2. CABG 2006. CARDIAC STENT 03/2002. tonsils,. LUMBAR SURGERY 10/23 Hx Anesthesia Reactions: No - Immunization History Date of Tetanus Vaccine: current Date of Influenza Vaccine: 2014 Infectious Disease History: No Infectious Disease History: Denies: Hx Clostridium Difficile, Hx Hepatitis, Hx Human Immunodeficiency Virus (HIV), Hx of Known/Suspected MRSA, Hx Shingles, Hx Tuberculosis, Hx Known/ Suspected VRE, Hx Known/Suspected VRSA, History Other Infectious Disease, Traveled Outside the [place] in Last 30 Days - Family History Known Family History: Positive: Hypertension - Social History Alcohol Use: None Hx Substance Use: No Substance Use Type: Reports: None Hx Tobacco Use: No Smoking Status (MU): Never Smoked Tobacco Review of Systems Positive: Other - right foot pain, right wrist pain Neurological: Negative - loss of consciousness All Other Systems Reviewed And Are Negative: Yes Physical Exam - Summary Physical Exam Summary: Constitutional: Well-developed, Well-nourished, Alert. (-) Distressed Skin: Warm, Dry HENT: Normocephalic; Atraumatic Eyes: Conjunctiva normal Neck: Musculoskeletal ROM normal neck. (-) JVD, (-) Stridor, (-) Tracheal deviation Cardio: Rhythm regular, rate normal, Heart sounds normal; Intact distal pulses; The pedal pulses are 2+ and symmetric. Radial pulses are 2+ and symmetric. (-) Murmur Pulmonary/Chest wall: Effort normal. (-) Respiratory distress, (-) Wheezes, (-) Rales Abd: Soft, (-) Tenderness, (-) Distension, (-) Guarding, (-) Rebound Musculoskeletal: Tenderness to palpation in the lateral radial distribution. Full ROM, neurovascularly intact. Redness to the dorsum of the right foot, and swelling. Lymph: (-) Cervical adenopathy Neuro: Alert, Oriented x3 Psych: Mood and affect Normal Triage Information Reviewed: Yes Vital Signs On Initial Exam: Initial Vitals Temp Pulse Resp BP Pulse Ox 99.8 F 81 24 158/56 92 06/05/17 12:46 06/05/17 12:46 06/05/17 12:46 06/05/17 12:46 06/05/17 12:46 Vital Signs Reviewed: Yes Diagnostics - Vital Signs Vital Signs Temp Pulse Resp BP Pulse Ox 06/05/17 14:00 92 143/58 89 06/05/17 13:35 85 92 06/05/17 13:34 139/51 06/05/17 12:46 99.8 F 81 24 158/56 92 - Laboratory Lab Results: Lab Results 06/05/17 06/05/17 Range/Units 14:45 14:45 WBC 10.7 (3.5-10.8) 10^3/ul RBC 3.86 L (4.0-5.4) 10^6/ul Hgb 11.1 L (14.0-18.0) g/dl Hct 34 L (42-52) % MCV 87 (80-94) fL MCH 29 (27-31) pg MCHC 33 (31-36) g/dl RDW 15 (10.5-15) % Plt Count 188 (150-450) 10^3/ul MPV 7.8 (7.4-10.4) um3 Neut % (Auto) 73.7 (38-83) % Lymph % (Auto) 13.8 L (25-47) % [place] % (Auto) 8.6 H (0-7) % Eos % (Auto) 2.9 (0-6) % Baso % (Auto) 1.0 (0-2) % Absolute Neuts (auto) 7.9 H (1.5-7.7) 10^3/ul Absolute Lymphs (auto) 1.5 (1.0-4.8) 10^3/ul Absolute Monos (auto) 0.9 H (0-0.8) 10^3/ul Absolute Eos (auto) 0.3 (0-0.6) 10^3/ul Absolute Basos (auto) 0.1 (0-0.2) 10^3/ul Absolute Nucleated RBC 0 10^3/ul Nucleated RBC % 0 Sodium Pending Potassium Pending Chloride Pending Carbon Dioxide Pending Anion Gap Pending BUN Pending Creatinine Pending Est GFR ( Amer) Pending Est GFR (Non-Af Amer) Pending BUN/Creatinine Ratio Pending Glucose Pending Calcium Pending Total Bilirubin Pending AST Pending ALT Pending Alkaline Phosphatase Pending Troponin I 0.01 (<0.04) ng/mL C-Reactive Protein Pending Total Protein Pending Albumin Pending Globulin Pending Albumin/Globulin Ratio Pending Result Diagrams: 06/05/17 14:45 06/05/17 14:45 Lab Statement: Any lab studies that have been ordered have been reviewed, and results considered in the medical decision making process. - Radiology foot xray Radiology Interpretation Completed By: Radiologist - Foot x-ray reveals, per radiologist, ACUTE FRACTURE OF THE GREAT TOE DESCRIBED. ED physician has reviewed this radiology report. wrist xray Radiology Interpretation Completed By: Radiologist - Wrist x-ray reveals, per radiologist, SOFT TISSUE SWELLING. NO ACUTE FRACTURE. ED physician has reviewed this radiology report. CXR Radiology Interpretation Completed By: Radiologist - CXR reveals, per radiologist, Mild pulmonary vascular congestion and interstitial edema. No traumatic injury evident. ED physician has reviewed this radiology report. - EKG 1423 Cardiac Rate: NL EKG Rhythm: Sinus Rhythm - 89 bpm EKG Interpretation: RBBB, LAFB Complex Multi-Symp Course/Dx Course Of Treatment: 76 year old male who presents with frequent falls, right wrist and right great toe pain. Work-up remarkable for CXR with interstial edema and patient was found to be dropping his saturation on RA to 89%. Pulse ox improved with supplemental oxygen and patient was given IV lasix. X ray of the right great toe shows an acute fracture and wrist x ray negative for fracture. Pre-made splint applied and right wrist and foot. Patient admitted in stable condition - Diagnoses Provider Diagnoses: CHF (congestive heart failure), Toe fracture, right - Physician Notifications Discussed Care Of Patient With: Eric Palacios Time Discussed With Above Provider: 16:10 Instructed by Provider To: Admit As Inpatient - Discussed patient condition. He recommended admission. Discharge - Sign-Out/Discharge Documenting (check all that apply): Discharge - Discharge Plan Condition: Stable Disposition: ADMITTED TO [facility] - Billing Disposition and Condition Condition: STABLE Disposition: [facility] [place] The documentation as recorded by the Hector rosenbaum Jason accurately reflects the service I personally performed and the decisions made by Alec lang Tudi-Ann, MD.
[2017-06-05] MEDS: Metolazone TAB* 5 MG PO SCH (19:39)
[2017-06-05] MEDS: Atorvastatin* 80 MG TAB PO SCH (19:40)
[2017-06-05] MEDS: Clindamycin CAP* 150 MG PO SCH (19:40)
[2017-06-05] MEDS: Torsemide TAB* 20 MG PO SCH (20:13)
--- NOTE | 2017-06-05 23:35 | HP ---
HISTORY AND PHYSICAL: DATE OF ADMISSION: 06/05/17 ADMITTING PROVIDER: Eric Palacios MD PRIMARY CARE PHYSICIAN: Dr. Fong. CHIEF COMPLAINT: Multiple falls, twice in the last 2 days; pain in the right foot and malodor to the right calf in the setting of chronic lymphedema. HISTORY OF PRESENT ILLNESS: Seth Benjamin Jr. is a 76-year-old male with past medical history of morbid obesity, COPD, likely obesity hypoventilation syndrome , obstructive sleep apnea, on CPAP; coronary artery disease, status post CABG; diastolic CHF; chronic right greater than left lymphadenopathy, complicated by superficial infections; chronic kidney disease; hypertension; hyperlipidemia; hypothyroidism who presents with complaints of 2 falls within the last 2 days. Day prior to admission, he was using a cane, walking around the car when he fell and hit his right foot, scratched his face. He has followed up with the weed controller, Dr. Nieto, who had referred him for x-ray of his right foot and right wrist given that fall. Upon ambulating into [facility], his rolling walker got out ahead of him and he was unable to apply the breaks. He fell face forward and the CAT team was called. He denied any loss of consciousness, chest pain, shortness of breath at that time, but his chronic right leg lymphedema has been bothering him and reducing his mobility. He was recently admitted after 3 falls a month prior and had been discharged to [facility]. He has been back for a few weeks now. The patient saw Dr. Fong , his primary care provider, within the last week and was restarted on clindamycin 300 mg t.i.d. He had previously been on clinda, following with Dr. Lozano for a 14-day course and he had then referred him back up to vascular surgeon, Dr. Jairo Fitzgerald, and occupational therapist for lymphedema, [facility] Ochoa of [place], which he visited 5 times, he thought was very helpful, but the distance made it hard to get up there and he has subsequently been hospitalized and then to rehab. His and son have been taught how to do the Rodney bandage wrapping, but Dr. Fong advised him not to do that in the setting of recent suspicion of recurrent superficial cellulitis and infection. He attests that the malodor has been going on for "months" and has been using superficially. The patient recently started on albuterol nebs on discharge on . He is a never smoker but attested to significant secondhand smoking history and reportedly had confirmed PFTs with obstructive disease both here and [facility]. The patient is being referred for admission for multiple falls, inability to ambulate safely, cellulitis of the right lower extremity, and likely worsening diastolic CHF. The patient attests his weight has been gradually rising despite low salt diet. He had weighed 327 from 352 and now 357. He sleeps in a recliner at home, tries to elevate his feet. He gets chronic pain from the edge of his proximal toes up in to his heels chronically, worse on the right side. In the emergency room, he showed evidence of acute comminuted intraarticular fracture of the proximal phalanx of the great toe and there also may be a fracture of the head of the 1st metatarsal as well. The patient's last echo in our system was from July 2013, which showed preserved ejection fraction with abnormal diastolic function consistent with previous in 2007. He is on 60 mg of torsemide twice a day. He had had a chest x- ray, which demonstrated some mild pulmonary interstitial edema. His wrist x-ray did not show any signs of fracture. PAST MEDICAL HISTORY: 1. CAD, status post CABG. 2. CKD. 3. Hypertension. 4. Chronic lymphedema. 5. COPD. 6. Obstructive sleep apnea, on CPAP. 7. Diastolic heart failure. 8. Cellulitis, recurrent. 9. Super morbid obesity. 10. Hypothyroidism. 11. Hypertension. MEDICATIONS: Include: 1. Albuterol/ipratropium nebulizer 1 neb inhaled q.4 hours p.r.n. 2. Albuterol HFA inhaler 2 puffs inhaled q.4 hours p.r.n. 3. Aspirin 81 mg daily. 4. Synthroid 300 mcg p.o. daily. 5. Metoprolol 50 mg p.o. q.a.m. 6. Torsemide 60 mg p.o. b.i.d. 7. Amlodipine 10 mg p.o. q.a.m. 8. Clindamycin 300 mg p.o. t.i.d. 9. Rosuvastatin 40 mg p.o. daily. 10. Anoro Ellipta 2 inhaled daily. ALLERGIES: MORPHINE. SOCIAL HISTORY: The patient is a retired guardian ad litem. Never smoker. Medical proxy is his son, Hamilton Benjamin. He is to Maru Benjamin. He is a full code. He does not drink alcohol, use drugs. FAMILY HISTORY: Dad of sudden cardiac arrest at age 57; he was a smoker. Mother at age 95 of colon cancer. REVIEW OF SYSTEMS: Complete 14-point review of systems is negative except as per HPI. PHYSICAL EXAMINATION GENERAL APPEARANCE: The patient is in no acute distress, but with abrasions to the face and super morbid obesity. VITAL SIGNS: Temperature 99.8 and this improved to 98.7. He is satting 95% on 2 L nasal cannula, blood pressure is 153/74. HEENT: Normocephalic, atraumatic but with minor scratches to the face. Pupils equal, round, and reactive to light. Extraocular motions intact. No scleral icterus. NECK: Supple. No cervical lymphadenopathy. RESPIRATORY: Clear to auscultation bilaterally with no wheezing, rales, or rhonchi. CARDIOVASCULAR: Regular rate and rhythm. No murmurs, rubs, or gallops. ABDOMEN: Soft, but distended, nontender. EXTREMITIES: With prominence, right-sided much greater than left-sided lymphedema with malodor and yellow drainage, covered in Rodney bandage, woody edema , nonpitting, 1+, also edematous but nonpitting edema to the hands bilaterally. NEURO: Cranial nerves II through XII intact. Head Doffer strength intact bilaterally. Right hip flexion limited by massive lymphedematous legs and weight. DIAGNOSTIC IMAGING/LAB STUDIES: White count 10.7, hemoglobin 11.11, hematocrit 34, platelets 188. Sodium 141, potassium 3.8, chloride 100, carbon dioxide 31, BUN 33, creatinine 1.54, glucose 111. AST 17, ALT 10, alk phos 67. Troponin 0.01. CRP 72. BNP 19. Albumin 3.7. IMAGING: As per HPI. His EKG showed right bundle-branch block and left anterior fascicular block unchanged. ASSESSMENT AND PLAN: Seth Benjamin Jr. is a 76-year-old male with chronic obstructive pulmonary disease; coronary artery disease, status post coronary artery bypass grafting; chronic kidney disease; obstructive sleep apnea; diastolic heart failure with progressive march up in weights and worsening right greater than left lymphedema with concern for cellulitis, being treated with outpatient clindamycin. He is now presenting with 2 falls in the last 2 days with fractured right 1st toe and abrasions to his face. I do not believe that he is currently safe for home going and physical therapy is being ordered. Consideration for a repeat echocardiogram since last was several years ago ( July 2013). Objectively, he has diastolic heart failure with edema and rising weights, though no hypoxic respiratory failure. He is on torsemide 60 mg b.i.d. Consideration to add metolazone and start IV Lasix drip versus high dose q.6 hours, strict I's and O's, daily weights. We will continue the clindamycin for now. I will get ID consultation in consideration to change the vancomycin. We will get a culture of the wound. His CRP is elevated to 72. He does not show signs of sepsis currently. His lactic acid is 1.6. We will get , as I said, Physical Therapy to see him. We will continue his antihypertensive medications and the patient should be seen by the wound care nurse. Ultimately, the patient may benefit from reevaluation by [facility]yll[facility] Ochoa of [place], the edema licensed occupational therapist, but concern may be that he will need to go to subacute rehab in the meantime. He is a full code. Continue the heart-healthy diet. [id number]/[facility] #: [id number] [facility]
[2017-06-06] MEDS: Levothyroxine TAB* 100 MCG TAB PO SCH (06:23)
[2017-06-06 06:51] LABS: EGFR Non-African American 41.7 (>60)
[2017-06-06] MEDS: Metolazone TAB* 5 MG PO SCH (08:10)
[2017-06-06] MEDS: PTO:Umeclidin/Vilant 62.5 MDI 62.5/25 mcg 14 INH ELLIPTA DEVICE INH SCH (09:11)
[2017-06-06] MEDS: Metoprolol Succinate XL TAB* 50 MG PO SCH (09:16)
[2017-06-06] MEDS: amLODIPine TAB* 5 MG PO SCH (09:16)
[2017-06-06] MEDS: Clindamycin CAP* 150 MG PO SCH ×3 (09:16→20:23)
[2017-06-06] MEDS: Torsemide TAB* 20 MG PO SCH ×2 (09:16→20:23)
[2017-06-06] MEDS: Aspirin EC TAB* 81 MG TAB.EC PO SCH (09:16)
--- NOTE | 2017-06-06 10:17 | PN ---
Subjective Date of Service: 06/06/17 Interval History: Sitting up in chair Interactive Eating cookie has no complaints other than drainage from right lower leg Objective Active Medications: Albuterol (Ventolin Hfa Inhaler*) 2 puff INH Q4H PRN PRN Reason: SHORTNESS OF BREATH Albuterol/Ipratropium (Duoneb (Albuterol 2.5 Mg/Ipratropium 0.5 Mg)) 1 neb INH Q4H PRN PRN Reason: SOB/WHEEZING Amlodipine Besylate (Norvasc Tab*) 10 mg PO QAM [facility] Last Admin: 06/06/17 09:16 Dose: 10 mg Aspirin (Aspirin Ec Tab*) 81 mg PO DAILY [facility] Last Admin: 06/06/17 09:16 Dose: 81 mg Atorvastatin Calcium (Lipitor*) 80 mg PO 1700 [facility] Last Admin: 06/05/17 19:40 Dose: 80 mg Clindamycin HCl (Cleocin Cap*) 300 mg PO TID [facility] Last Admin: 06/06/17 09:16 Dose: 300 mg Ceftriaxone Sodium 1,000 mg/ (Sodium Chloride) 50 mls @ 200 mls/hr IVPB Q24H [facility] Levothyroxine Sodium (Synthroid Tab*) 300 mcg PO MoTuWeThFrSa@0600 [facility] Last Admin: 06/06/17 06:23 Dose: 300 mcg Metolazone (Zaroxolyn Tab*) 5 mg PO DAILY@0830 [facility] Last Admin: 06/06/17 08:10 Dose: 5 mg Metoprolol Succinate (Toprol Xl Tab*) 50 mg PO QAM [facility] Last Admin: 06/06/17 09:16 Dose: 50 mg Torsemide (Demadex*) 60 mg PO BID [facility] Last Admin: 06/06/17 09:16 Dose: 60 mg Umeclidinium/Vilanterol (Anoro 62.5/25 Ellipta Device (Nf)) 2 inh INH DAILY [facility] Last Admin: 06/06/17 09:11 Dose: Not Given Vital Signs - 8 hr 06/06/17 06/06/17 03:37 07:15 Temperature 98.2 F 99.2 F Pulse Rate 76 75 Respiratory 16 20 Rate Blood Pressure 137/61 117/53 (mmHg) O2 Sat by Pulse 97 95 Oximetry Oxygen Devices in Use Now: Nasal Cannula Appearance: obese, sitting in chair, NAD Eyes: No Scleral Icterus, PERRLA Ears/Nose/Mouth/Throat: Clear Oropharnyx, Mucous Membranes Moist Neck: NL Appearance and Movements; NL JVP, Trachea Midline Respiratory: Symmetrical Chest Expansion and Respiratory Effort, Clear to Auscultation Cardiovascular: RRR, - - distant heart sounds Abdominal: - - firm, distended, NTTP Extremities: - - tense b/l LE edema with localized left lateral lower tense welling superior to left anckle associated with copious foul smelling serosangenous discharge, right hand swelling Result Diagrams: 06/05/17 14:45 06/06/17 05:55 Additional Lab and Data: Lab Results 06/05/17 06/05/17 Range/Units 14:45 14:45 WBC 10.7 (3.5-10.8) 10^3/ul RBC 3.86 L (4.0-5.4) 10^6/ul Hgb 11.1 L (14.0-18.0) g/dl Hct 34 L (42-52) % MCV 87 (80-94) fL MCH 29 (27-31) pg MCHC 33 (31-36) g/dl RDW 15 (10.5-15) % Plt Count 188 (150-450) 10^3/ul MPV 7.8 (7.4-10.4) um3 Neut % (Auto) 73.7 (38-83) % Lymph % (Auto) 13.8 L (25-47) % [place] % (Auto) 8.6 H (0-7) % Eos % (Auto) 2.9 (0-6) % Baso % (Auto) 1.0 (0-2) % Absolute Neuts (auto) 7.9 H (1.5-7.7) 10^3/ul Absolute Lymphs (auto) 1.5 (1.0-4.8) 10^3/ul Absolute Monos (auto) 0.9 H (0-0.8) 10^3/ul Absolute Eos (auto) 0.3 (0-0.6) 10^3/ul Absolute Basos (auto) 0.1 (0-0.2) 10^3/ul Absolute Nucleated RBC 0 10^3/ul Nucleated RBC % 0 Sodium Pending Potassium Pending Chloride Pending Carbon Dioxide Pending Anion Gap Pending BUN Pending Creatinine Pending Est GFR ( Amer) Pending Est GFR (Non-Af Amer) Pending BUN/Creatinine Ratio Pending Glucose Pending Calcium Pending Total Bilirubin Pending AST Pending ALT Pending Alkaline Phosphatase Pending Troponin I 0.01 (<0.04) ng/mL C-Reactive Protein Pending Total Protein Pending Albumin Pending Globulin Pending Albumin/Globulin Ratio Pending Assess/Plan/Problems-Billing Assessment: 76 yo M h/o CAD/CABG 7 yrs prior with vein harvest RLE, morbid obesity, lymphedema (about 4 years), CKD, COPD, JULIANE on CPAP, dCHF, recurent cellulitis p/ w recurrent falls c/b right great tow fracture, cellulitis overlying largest area of lymphedema in RLE - Patient Problems (1) Lymphedema Comment: Severe may represent massive localized lymphedema Suspect developed in setting of morbid obesity, chronic venous stasis and right vein grafting complicated by cellulitis was seeing specialist in [place] which I agree with Treat underlying CHF. COPD/JULIANE liley increasing venous return (2) Cellulitis Comment: In setting of lyphedema Started on clinda PO as outpatient Add CTX for GPC coverage avoiding compression for lymphedema in setting of infection (3) CKD (chronic kidney disease) Comment: stable (4) COPD (chronic obstructive pulmonary disease) Comment: Continue eduar nicole not in exacerbation (5) Diastolic CHF Code(s): I50.30 - UNSPECIFIED DIASTOLIC (CONGESTIVE) HEART FAILURE Comment: Metolazone added to torsemide. BNP only 18 (though can be falsely low in morbid obesity) CXR with e/o COPD but not volume overload massive weight gain over last year - continue Torsemide (6) Falls frequently Comment: Suspect deconditioning in addition to large legs (lymphedema and dCHF) PT/OT may need OBED and or not capable of walking His decline has been slowly progressing over 4 years (7) HTN (hypertension) Current Visit: No Status: Chronic Code(s): I10 - ESSENTIAL (PRIMARY) HYPERTENSION SNOMED Code(s): 79407988 Comment: - Normotensive - Continue amlodipine and lisinopril, torsemide. (8) Morbid obesity Comment: BMI 47.5 (9) JULIANE (obstructive sleep apnea) Comment: - Continue home CPAP (10) DVT prophylaxis Code(s): CSB2832 - Comment: TONY
[2017-06-06] MEDS ORDERED: cefTRIAXone VIAL(*) 1,000 MG in NS 0.9% 50 ML* 50 ML IVPB SCH (11:00)
[2017-06-06] MEDS ORDERED: Acetaminophen TAB* 325 MG ONE (11:31)
[2017-06-06] MEDS: Acetaminophen TAB* 325 MG PO PRN ×2 (11:33→22:47)
[2017-06-06] MEDS: cefTRIAXone 1000 MG SYRINGE IVPB Q24H (in NaCl) IVPB SCH ×2 (11:33)
[2017-06-06 12:16] LABS: Urine Appearance Clear; Urine Blood Negative (Negative); Urine Color Yellow; Urine Ketones Negative (Negative); Urine Protein Negative (Negative); Urine Specific Gravity 1.009 (1.010-1.030); Urine Urobilinogen Negative (Negative)
[2017-06-06] MEDS: Heparin VIAL(*) 5000 UNITS/ML VIAL (FIVE THOUSAND) SUBCUT SCH ×2 (12:48→20:24)
[2017-06-06] MEDS: Atorvastatin* 80 MG TAB PO SCH (17:33)
[2017-06-07] MEDS: Heparin VIAL(*) 5000 UNITS/ML VIAL (FIVE THOUSAND) SUBCUT SCH ×3 (05:58→21:49)
[2017-06-07 06:29] LABS: EGFR Non-African American 34.2 (>60)
[2017-06-07] MEDS: PTO:Umeclidin/Vilant 62.5 MDI 62.5/25 mcg 14 INH ELLIPTA DEVICE INH SCH (08:31)
[2017-06-07] MEDS: Aspirin EC TAB* 81 MG TAB.EC PO SCH (08:48)
[2017-06-07] MEDS: amLODIPine TAB* 5 MG PO SCH (08:48)
[2017-06-07] MEDS: Torsemide TAB* 20 MG PO SCH (08:48)
[2017-06-07] MEDS: Metolazone TAB* 5 MG PO SCH (08:48)
[2017-06-07] MEDS: Clindamycin CAP* 150 MG PO SCH ×3 (08:48→21:45)
[2017-06-07] MEDS: Metoprolol Succinate XL TAB* 50 MG PO SCH (08:48)
[2017-06-07] MEDS: Acetaminophen TAB* 325 MG PO PRN ×2 (08:55→18:13)
[2017-06-07] MEDS: cefTRIAXone 1000 MG SYRINGE IVPB Q24H (in NaCl) IVPB SCH ×2 (09:57)
--- NOTE | 2017-06-07 14:18 | PN ---
Subjective Date of Service: 06/07/17 Interval History: Seen with Feels well Pain well controlled Copious weeping from right leg continues Objective Active Medications: Acetaminophen (Tylenol Tab*) 650 mg PO Q6H PRN PRN Reason: PAIN Last Admin: 06/07/17 08:55 Dose: 650 mg Albuterol (Ventolin Hfa Inhaler*) 2 puff INH Q4H PRN PRN Reason: SHORTNESS OF BREATH Albuterol/Ipratropium (Duoneb (Albuterol 2.5 Mg/Ipratropium 0.5 Mg)) 1 neb INH Q4H PRN PRN Reason: SOB/WHEEZING Amlodipine Besylate (Norvasc Tab*) 10 mg PO QAM [facility] Last Admin: 06/07/17 08:48 Dose: 10 mg Aspirin (Aspirin Ec Tab*) 81 mg PO DAILY [facility] Last Admin: 06/07/17 08:48 Dose: 81 mg Atorvastatin Calcium (Lipitor*) 80 mg PO 1700 [facility] Last Admin: 06/06/17 17:33 Dose: 80 mg Clindamycin HCl (Cleocin Cap*) 300 mg PO TID [facility] Last Admin: 06/07/17 13:16 Dose: 300 mg Heparin Sodium (Porcine) (Heparin Vial(*)) 5,000 units SUBCUT Q8HR [facility] Last Admin: 06/07/17 13:16 Dose: 5,000 units Ceftriaxone Sodium 1,000 mg/ (Sodium Chloride) 10 mls @ 40 mls/hr IVPB Q24H [facility] Last Admin: 06/07/17 09:57 Dose: 40 mls/hr Levothyroxine Sodium (Synthroid Tab*) 300 mcg PO MoTuWeThFrSa@0600 [facility] Last Admin: 06/06/17 06:23 Dose: 300 mcg Metoprolol Succinate (Toprol Xl Tab*) 50 mg PO QAM [facility] Last Admin: 06/07/17 08:48 Dose: 50 mg Torsemide (Demadex*) 60 mg PO DAILY [facility] Umeclidinium/Vilanterol (Anoro 62.5/25 Ellipta Device (Nf)) 2 inh INH DAILY [facility] Last Admin: 06/07/17 08:31 Dose: Not Given Vital Signs - 8 hr 06/07/17 06/07/17 06/07/17 07:19 08:57 11:16 Temperature 98.1 F 98.6 F Pulse Rate 75 76 Respiratory 16 18 16 Rate Blood Pressure 128/44 118/61 (mmHg) O2 Sat by Pulse 91 91 Oximetry 06/07/17 11:20 Temperature Pulse Rate Respiratory Rate Blood Pressure (mmHg) O2 Sat by Pulse 94 Oximetry Oxygen Devices in Use Now: None Appearance: sitting in chair (never uses bed - removed from room) Eyes: No Scleral Icterus, PERRLA Ears/Nose/Mouth/Throat: Mucous Membranes Moist Neck: NL Appearance and Movements; NL JVP, Trachea Midline Respiratory: Symmetrical Chest Expansion and Respiratory Effort, Clear to Auscultation Cardiovascular: RRR Abdominal: NL Sounds; No Tenderness; No Distention, No Hepatosplenomegaly Lymphatic: No Cervical Adenopathy Extremities: - - tense pitting edema b/l right with localized lyhedema right lower extremity Skin: - - erythema overlying area of lymphedema on right LE with copious fould smelling serosangenous discharge, echymotic right toe - nv intact Neurological: Alert and Oriented x 3 Result Diagrams: 06/05/17 14:45 06/07/17 06:02 Additional Lab and Data: Lab Results 06/05/17 06/05/17 Range/Units 14:45 14:45 WBC 10.7 (3.5-10.8) 10^3/ul RBC 3.86 L (4.0-5.4) 10^6/ul Hgb 11.1 L (14.0-18.0) g/dl Hct 34 L (42-52) % MCV 87 (80-94) fL MCH 29 (27-31) pg MCHC 33 (31-36) g/dl RDW 15 (10.5-15) % Plt Count 188 (150-450) 10^3/ul MPV 7.8 (7.4-10.4) um3 Neut % (Auto) 73.7 (38-83) % Lymph % (Auto) 13.8 L (25-47) % [place] % (Auto) 8.6 H (0-7) % Eos % (Auto) 2.9 (0-6) % Baso % (Auto) 1.0 (0-2) % Absolute Neuts (auto) 7.9 H (1.5-7.7) 10^3/ul Absolute Lymphs (auto) 1.5 (1.0-4.8) 10^3/ul Absolute Monos (auto) 0.9 H (0-0.8) 10^3/ul Absolute Eos (auto) 0.3 (0-0.6) 10^3/ul Absolute Basos (auto) 0.1 (0-0.2) 10^3/ul Absolute Nucleated RBC 0 10^3/ul Nucleated RBC % 0 Sodium Pending Potassium Pending Chloride Pending Carbon Dioxide Pending Anion Gap Pending BUN Pending Creatinine Pending Est GFR ( Amer) Pending Est GFR (Non-Af Amer) Pending BUN/Creatinine Ratio Pending Glucose Pending Calcium Pending Total Bilirubin Pending AST Pending ALT Pending Alkaline Phosphatase Pending Troponin I 0.01 (<0.04) ng/mL C-Reactive Protein Pending Total Protein Pending Albumin Pending Globulin Pending Albumin/Globulin Ratio Pending Microbiology and Other Data: Microbiology 06/06/17 10:52 Skin and Soft Tissue MRSA/MSSA (PCR - Final Leg Right Mrsa Negative S.aureus Negative Gram Stain - Final Assess/Plan/Problems-Billing Assessment: 76 yo M h/o CAD/CABG 7 yrs prior with vein harvest RLE, morbid obesity, lymphedema (about 4 years), CKD, COPD, JULIANE on CPAP, dCHF, recurent cellulitis p/ w recurrent falls c/b right great toe fracture, cellulitis overlying largest area of lymphedema in RLE - Patient Problems (1) Lymphedema Comment: Severe --complicated by cellulitis may represent massive localized lymphedema Suspect developed in setting of morbid obesity, chronic venous stasis and right vein grafting was seeing specialist in [place] which I agree with Treat underlying CHF, COPD/JULIANE likely increasing venous return (2) Cellulitis Comment: In setting of lyphedema Started on clinda PO as outpatient Added CTX 06/06 for GPC coverage avoiding compression for lymphedema in setting of infection (3) CKD (chronic kidney disease) Comment: worse 06/07 decrease torsemide d/c metolazone (4) COPD (chronic obstructive pulmonary disease) Comment: Continue duonebs, ellipta not in exacerbation (5) Diastolic CHF Code(s): I50.30 - UNSPECIFIED DIASTOLIC (CONGESTIVE) HEART FAILURE Comment: c/ b worsening renal function Metolazone stopped and torsemide decreased from BID to daily BNP only 18 (though can be falsely low in morbid obesity) CXR with e/o COPD but not volume overload massive weight gain over last year - continue Torsemide (6) Falls frequently Comment: Suspect deconditioning in addition to large legs (lymphedema and dCHF) PT/OT may need OBED and or not capable of walking His decline has been slowly progressing over 4 years (7) HTN (hypertension) Current Visit: No Status: Chronic Code(s): I10 - ESSENTIAL (PRIMARY) HYPERTENSION SNOMED Code(s): 83458408 Comment: - Normotensive - Continue amlodipine and lisinopril, torsemide. (8) Morbid obesity Comment: BMI 47.5 (9) JULIANE (obstructive sleep apnea) Comment: - Continue home CPAP (10) Toe fracture, right Comment: prox phalynx and possible metatarsal consult ortho for proper weight bearing status and spint vs cast vs boot recommendation (11) DVT prophylaxis Code(s): AAB5934 - Comment: TONY
[2017-06-07] MEDS: Atorvastatin* 80 MG TAB PO SCH (16:34)
[2017-06-08] MEDS: Levothyroxine TAB* 100 MCG TAB PO SCH (05:40)
[2017-06-08] MEDS: Heparin VIAL(*) 5000 UNITS/ML VIAL (FIVE THOUSAND) SUBCUT SCH ×3 (05:40→20:08)
[2017-06-08] MEDS: PTO:Umeclidin/Vilant 62.5 MDI 62.5/25 mcg 14 INH ELLIPTA DEVICE INH SCH (08:03)
[2017-06-08] MEDS ORDERED: Torsemide TAB* 20 MG PO SCH (09:00)
[2017-06-08] MEDS: amLODIPine TAB* 5 MG PO SCH (09:41)
[2017-06-08] MEDS: Clindamycin CAP* 150 MG PO SCH ×3 (09:41→19:57)
[2017-06-08] MEDS: Aspirin EC TAB* 81 MG TAB.EC PO SCH (09:41)
[2017-06-08] MEDS: Metoprolol Succinate XL TAB* 50 MG PO SCH (09:41)
[2017-06-08] MEDS: Acetaminophen TAB* 325 MG PO PRN ×2 (09:42→17:44)
[2017-06-08] MEDS: cefTRIAXone 1000 MG SYRINGE IVPB Q24H (in NaCl) IVPB SCH ×2 (11:28)
[2017-06-08] MEDS: Potassium Chlor TAB* 20 MEQ TAB.ER PO SCH ×2 (11:28→19:57)
[2017-06-08] MEDS ORDERED: Magnesium Hydroxide LIQ* 30 ML UDC PO ONE (11:43)
[2017-06-08] MEDS: Atorvastatin* 80 MG TAB PO SCH (16:10)
[2017-06-09] MEDS: Acetaminophen TAB* 325 MG PO PRN ×3 (02:28→22:54)
[2017-06-09] MEDS: Levothyroxine TAB* 100 MCG TAB PO SCH (05:50)
[2017-06-09] MEDS: Heparin VIAL(*) 5000 UNITS/ML VIAL (FIVE THOUSAND) SUBCUT SCH ×3 (05:51→21:17)
[2017-06-09 06:43] LABS: EGFR Non-African American 38.9 (>60)
[2017-06-09] MEDS: PTO:Umeclidin/Vilant 62.5 MDI 62.5/25 mcg 14 INH ELLIPTA DEVICE INH SCH (08:58)
[2017-06-09] MEDS: Magnesium Hydroxide LIQ* 30 ML UDC PO SCH (09:22)
[2017-06-09] MEDS: Aspirin EC TAB* 81 MG TAB.EC PO SCH (09:23)
[2017-06-09] MEDS: Clindamycin CAP* 150 MG PO SCH ×3 (09:23→21:17)
[2017-06-09] MEDS: amLODIPine TAB* 5 MG PO SCH (09:23)
[2017-06-09] MEDS: Metoprolol Succinate XL TAB* 50 MG PO SCH (09:23)
[2017-06-09] MEDS: Potassium Chlor TAB* 20 MEQ TAB.ER PO SCH ×2 (09:23→21:17)
[2017-06-09] MEDS: cefTRIAXone 1000 MG SYRINGE IVPB Q24H (in NaCl) IVPB SCH ×2 (10:59)
--- NOTE | 2017-06-09 13:35 | PN ---
Subjective Date of Service: 06/08/17 Interval History: Pain controlled with occ APAP. No new c/o. Objective Active Medications: Acetaminophen (Tylenol Tab*) 650 mg PO Q6H PRN PRN Reason: PAIN Last Admin: 06/09/17 02:28 Dose: 650 mg Albuterol (Ventolin Hfa Inhaler*) 2 puff INH Q4H PRN PRN Reason: SHORTNESS OF BREATH Albuterol/Ipratropium (Duoneb (Albuterol 2.5 Mg/Ipratropium 0.5 Mg)) 1 neb INH Q4H PRN PRN Reason: SOB/WHEEZING Amlodipine Besylate (Norvasc Tab*) 10 mg PO QAM [facility] Last Admin: 06/09/17 09:23 Dose: 10 mg Aspirin (Aspirin Ec Tab*) 81 mg PO DAILY [facility] Last Admin: 06/09/17 09:23 Dose: 81 mg Atorvastatin Calcium (Lipitor*) 80 mg PO 1700 [facility] Last Admin: 06/08/17 16:10 Dose: 80 mg Clindamycin HCl (Cleocin Cap*) 300 mg PO TID [facility] Last Admin: 06/09/17 09:23 Dose: 300 mg Heparin Sodium (Porcine) (Heparin Vial(*)) 5,000 units SUBCUT Q8HR [facility] Last Admin: 06/09/17 05:51 Dose: 5,000 units Ceftriaxone Sodium 1,000 mg/ (Sodium Chloride) 10 mls @ 40 mls/hr IVPB Q24H [facility] Last Admin: 06/09/17 10:59 Dose: 40 mls/hr Levothyroxine Sodium (Synthroid Tab*) 300 mcg PO MoTuWeThFrSa@0600 [facility] Last Admin: 06/09/17 05:50 Dose: 300 mcg Magnesium Hydroxide (Milk Of Magnesia Liq*) 30 ml PO DAILY [facility] Last Admin: 06/09/17 09:22 Dose: 30 ml Metoprolol Succinate (Toprol Xl Tab*) 50 mg PO QAM [facility] Last Admin: 06/09/17 09:23 Dose: 50 mg Potassium Chloride (Klor Con Er Tab*) 20 meq PO BID [facility] Last Admin: 06/09/17 09:23 Dose: 20 meq Umeclidinium/Vilanterol (Anoro 62.5/25 Ellipta Device (Nf)) 2 inh INH DAILY [facility] Last Admin: 06/09/17 08:58 Dose: 2 puff Vital Signs - 8 hr 06/09/17 06/09/17 07:15 08:59 Temperature 98.1 F Pulse Rate 66 66 Respiratory 20 22 Rate Blood Pressure 106/46 (mmHg) O2 Sat by Pulse 90 92 Oximetry Oxygen Devices in Use Now: None Appearance: Alert, in a chair, both feet on the floor. Neutral affect. Looks comfortable. Eyes: No Scleral Icterus Respiratory: Symmetrical Chest Expansion and Respiratory Effort, Clear to Auscultation, Clear to Percussion Cardiovascular: NL Sounds; No Murmurs; No JVD, RRR, No Edema, - Extremities: No Clubbing, Cyanosis, - - massive brawny edema both legs, much worse R leg Skin: - - RLE skin is deeply dimpled. Foul odor. No erythema Neurological: Alert and Oriented x 3, NL Sensation Result Diagrams: 06/05/17 14:45 06/09/17 05:43 Additional Lab and Data: Lab Results 06/05/17 06/05/17 Range/Units 14:45 14:45 WBC 10.7 (3.5-10.8) 10^3/ul RBC 3.86 L (4.0-5.4) 10^6/ul Hgb 11.1 L (14.0-18.0) g/dl Hct 34 L (42-52) % MCV 87 (80-94) fL MCH 29 (27-31) pg MCHC 33 (31-36) g/dl RDW 15 (10.5-15) % Plt Count 188 (150-450) 10^3/ul MPV 7.8 (7.4-10.4) um3 Neut % (Auto) 73.7 (38-83) % Lymph % (Auto) 13.8 L (25-47) % [place] % (Auto) 8.6 H (0-7) % Eos % (Auto) 2.9 (0-6) % Baso % (Auto) 1.0 (0-2) % Absolute Neuts (auto) 7.9 H (1.5-7.7) 10^3/ul Absolute Lymphs (auto) 1.5 (1.0-4.8) 10^3/ul Absolute Monos (auto) 0.9 H (0-0.8) 10^3/ul Absolute Eos (auto) 0.3 (0-0.6) 10^3/ul Absolute Basos (auto) 0.1 (0-0.2) 10^3/ul Absolute Nucleated RBC 0 10^3/ul Nucleated RBC % 0 Sodium Pending Potassium Pending Chloride Pending Carbon Dioxide Pending Anion Gap Pending BUN Pending Creatinine Pending Est GFR ( Amer) Pending Est GFR (Non-Af Amer) Pending BUN/Creatinine Ratio Pending Glucose Pending Calcium Pending Total Bilirubin Pending AST Pending ALT Pending Alkaline Phosphatase Pending Troponin I 0.01 (<0.04) ng/mL C-Reactive Protein Pending Total Protein Pending Albumin Pending Globulin Pending Albumin/Globulin Ratio Pending Microbiology and Other Data: Microbiology 06/06/17 10:52 Skin and Soft Tissue MRSA/MSSA (PCR - Final Leg Right Mrsa Negative S.aureus Negative Gram Stain - Final Assess/Plan/Problems-Billing Assessment: 76 yo M h/o CAD/CABG 7 yrs prior with vein harvest RLE, morbid obesity, lymphedema (about 4 years), CKD, COPD, JULIANE on CPAP, dCHF, recurent cellulitis p/ w recurrent falls c/b right great toe fracture, cellulitis overlying largest area of lymphedema in RLE - Patient Problems (1) Lymphedema Current Visit: Yes Status: Chronic Code(s): I89.0 - LYMPHEDEMA, NOT ELSEWHERE CLASSIFIED SNOMED Code(s): 443203730 Comment: Severe. Cellulitis improved on 06/08. Mass may represent massive localized lymphedema Suspect developed in setting of morbid obesity, chronic venous stasis and right vein grafting was seeing specialist in [place] which I agree with Treat underlying CHF, COPD/JULIANE likely increasing venous return (2) CKD (chronic kidney disease) Current Visit: Yes Status: Chronic Code(s): N18.9 - CHRONIC KIDNEY DISEASE, UNSPECIFIED SNOMED Code(s): 793909471 Comment: Worse /, stop torsemide. BMP /. (3) COPD (chronic obstructive pulmonary disease) Current Visit: Yes Status: Chronic Code(s): J44.9 - CHRONIC OBSTRUCTIVE PULMONARY DISEASE, UNSPECIFIED SNOMED Code(s): 22300394 Comment: Continue duonebs, ellipta not in exacerbation (4) Diastolic CHF Current Visit: Yes Status: Chronic Code(s): I50.30 - UNSPECIFIED DIASTOLIC ( CONGESTIVE) HEART FAILURE SNOMED Code(s): 151474175 Comment: c/b worsening renal function BNP only 18 (though can be falsely low in morbid obesity) CXR with e/o COPD but not volume overload massive weight gain over last year Torsemide stopped due to rising creatinine. BMP /. (5) Falls frequently Current Visit: Yes Status: Acute Code(s): R29.6 - REPEATED FALLS SNOMED Code(s): 764970573 Comment: Suspect deconditioning in addition to large legs (lymphedema and dCHF) PT/OT may need OBED and or not capable of walking His decline has been slowly progressing over 4 years (6) HTN (hypertension) Current Visit: No Status: Chronic Code(s): I10 - ESSENTIAL (PRIMARY) HYPERTENSION SNOMED Code(s): 69385324 Comment: - Continue amlodipine, torsemide is on hold. (7) Morbid obesity Current Visit: Yes Status: Acute Code(s): E66.01 - MORBID (SEVERE) OBESITY DUE TO EXCESS CALORIES SNOMED Code(s): 498379396 Comment: BMI 47.1 (8) JULIANE (obstructive sleep apnea) Current Visit: Yes Status: Chronic Code(s): G47.33 - OBSTRUCTIVE SLEEP APNEA (ADULT) (PEDIATRIC) SNOMED Code(s): 52398266 Comment: Continue home CPAP (9) Toe fracture, right Current Visit: Yes Status: Acute Code(s): S92.911A - UNSP FRACTURE OF RIGHT TOE(S), INIT FOR CLOS FX SNOMED Code(s): 31375297 Comment: prox phalynx and possible metatarsal consult ortho for proper weight bearing status and spint vs cast vs boot recommendation
--- NOTE | 2017-06-09 16:40 | PN ---
Subjective Date of Service: 06/09/17 Interval History: Pain controlled by APAP. No bowel c/o. No new c/o. Objective Active Medications: Acetaminophen (Tylenol Tab*) 650 mg PO Q6H PRN PRN Reason: PAIN Last Admin: 06/09/17 14:11 Dose: 650 mg Albuterol (Ventolin Hfa Inhaler*) 2 puff INH Q4H PRN PRN Reason: SHORTNESS OF BREATH Albuterol/Ipratropium (Duoneb (Albuterol 2.5 Mg/Ipratropium 0.5 Mg)) 1 neb INH Q4H PRN PRN Reason: SOB/WHEEZING Amlodipine Besylate (Norvasc Tab*) 10 mg PO QAM [facility] Last Admin: 06/09/17 09:23 Dose: 10 mg Aspirin (Aspirin Ec Tab*) 81 mg PO DAILY [facility] Last Admin: 06/09/17 09:23 Dose: 81 mg Atorvastatin Calcium (Lipitor*) 80 mg PO 1700 [facility] Last Admin: 06/08/17 16:10 Dose: 80 mg Clindamycin HCl (Cleocin Cap*) 300 mg PO TID [facility] Last Admin: 06/09/17 14:11 Dose: 300 mg Heparin Sodium (Porcine) (Heparin Vial(*)) 5,000 units SUBCUT Q8HR [facility] Last Admin: 06/09/17 14:11 Dose: 5,000 units Ceftriaxone Sodium 1,000 mg/ (Sodium Chloride) 10 mls @ 40 mls/hr IVPB Q24H [facility] Last Admin: 06/09/17 10:59 Dose: 40 mls/hr Levothyroxine Sodium (Synthroid Tab*) 300 mcg PO MoTuWeThFrSa@0600 [facility] Last Admin: 06/09/17 05:50 Dose: 300 mcg Magnesium Hydroxide (Milk Of Magnesia Liq*) 30 ml PO DAILY [facility] Last Admin: 06/09/17 09:22 Dose: 30 ml Metoprolol Succinate (Toprol Xl Tab*) 50 mg PO QAM [facility] Last Admin: 06/09/17 09:23 Dose: 50 mg Potassium Chloride (Klor Con Er Tab*) 20 meq PO BID [facility] Last Admin: 06/09/17 09:23 Dose: 20 meq Umeclidinium/Vilanterol (Anoro 62.5/25 Ellipta Device (Nf)) 2 inh INH DAILY [facility] Last Admin: 06/09/17 08:58 Dose: 2 puff Vital Signs - 8 hr 06/09/17 08:59 Pulse Rate 66 Respiratory 22 Rate O2 Sat by Pulse 92 Oximetry Oxygen Devices in Use Now: None Appearance: Alert, in a chair. In good spirits. Looks comfortable. Eyes: No Scleral Icterus Extremities: No Clubbing, Cyanosis, - - R lower leg mild erythema at margins of lymphedema mass Skin: - - R lower leg skin massively thickened, cobbled, discolored. Neurological: Alert and Oriented x 3, NL Sensation Result Diagrams: 06/05/17 14:45 06/09/17 05:43 Additional Lab and Data: Lab Results 06/05/17 06/05/17 Range/Units 14:45 14:45 WBC 10.7 (3.5-10.8) 10^3/ul RBC 3.86 L (4.0-5.4) 10^6/ul Hgb 11.1 L (14.0-18.0) g/dl Hct 34 L (42-52) % MCV 87 (80-94) fL MCH 29 (27-31) pg MCHC 33 (31-36) g/dl RDW 15 (10.5-15) % Plt Count 188 (150-450) 10^3/ul MPV 7.8 (7.4-10.4) um3 Neut % (Auto) 73.7 (38-83) % Lymph % (Auto) 13.8 L (25-47) % [place] % (Auto) 8.6 H (0-7) % Eos % (Auto) 2.9 (0-6) % Baso % (Auto) 1.0 (0-2) % Absolute Neuts (auto) 7.9 H (1.5-7.7) 10^3/ul Absolute Lymphs (auto) 1.5 (1.0-4.8) 10^3/ul Absolute Monos (auto) 0.9 H (0-0.8) 10^3/ul Absolute Eos (auto) 0.3 (0-0.6) 10^3/ul Absolute Basos (auto) 0.1 (0-0.2) 10^3/ul Absolute Nucleated RBC 0 10^3/ul Nucleated RBC % 0 Sodium Pending Potassium Pending Chloride Pending Carbon Dioxide Pending Anion Gap Pending BUN Pending Creatinine Pending Est GFR ( Amer) Pending Est GFR (Non-Af Amer) Pending BUN/Creatinine Ratio Pending Glucose Pending Calcium Pending Total Bilirubin Pending AST Pending ALT Pending Alkaline Phosphatase Pending Troponin I 0.01 (<0.04) ng/mL C-Reactive Protein Pending Total Protein Pending Albumin Pending Globulin Pending Albumin/Globulin Ratio Pending Microbiology and Other Data: Microbiology 06/06/17 10:52 Skin and Soft Tissue MRSA/MSSA (PCR - Final Leg Right Mrsa Negative S.aureus Negative Gram Stain - Final Assess/Plan/Problems-Billing Assessment: 76 yo M h/o CAD/CABG 7 yrs prior with vein harvest RLE, morbid obesity, lymphedema (about 4 years), CKD, COPD, JULIANE on CPAP, dCHF, recurent cellulitis p/ w recurrent falls c/b right great toe fracture, cellulitis overlying largest area of lymphedema in RLE - Patient Problems (1) Lymphedema Current Visit: Yes Status: Chronic Code(s): I89.0 - LYMPHEDEMA, NOT ELSEWHERE CLASSIFIED SNOMED Code(s): 871781687 Comment: Severe. Cellulitis improved on 06/08. Mass may represent massive localized lymphedema Suspect developed in setting of morbid obesity, chronic venous stasis and right vein grafting was seeing specialist in [place] which I agree with Treat underlying CHF, COPD/JULIANE likely increasing venous return (2) CKD (chronic kidney disease) Current Visit: Yes Status: Chronic Code(s): N18.9 - CHRONIC KIDNEY DISEASE, UNSPECIFIED SNOMED Code(s): 307788208 Comment: Worse 06/08, stop torsemide. BMP 06/09. (3) COPD (chronic obstructive pulmonary disease) Current Visit: Yes Status: Chronic Code(s): J44.9 - CHRONIC OBSTRUCTIVE PULMONARY DISEASE, UNSPECIFIED SNOMED Code(s): 03309754 Comment: Continue duonebs, ellipta not in exacerbation (4) Diastolic CHF Current Visit: Yes Status: Chronic Code(s): I50.30 - UNSPECIFIED DIASTOLIC ( CONGESTIVE) HEART FAILURE SNOMED Code(s): 873904536 Comment: c/b worsening renal function BNP only 18 (though can be falsely low in morbid obesity) CXR with e/o COPD but not volume overload massive weight gain over last year Torsemide stopped due to rising creatinine. Creatinine down to 1.71 on 06/09. Re- start torsemide at 20 mg daily 06/10. (5) Falls frequently Current Visit: Yes Status: Acute Code(s): R29.6 - REPEATED FALLS SNOMED Code(s): 931599622 Comment: Suspect deconditioning in addition to large legs (lymphedema and dCHF) PT/OT may need OBED and or not capable of walking His decline has been slowly progressing over 4 years (6) HTN (hypertension) Current Visit: No Status: Chronic Code(s): I10 - ESSENTIAL (PRIMARY) HYPERTENSION SNOMED Code(s): 74588192 Comment: - Continue amlodipine, torsemide is on hold. (7) Morbid obesity Current Visit: Yes Status: Acute Code(s): E66.01 - MORBID (SEVERE) OBESITY DUE TO EXCESS CALORIES SNOMED Code(s): 354157659 Comment: BMI 47.1 (8) JULIANE (obstructive sleep apnea) Current Visit: Yes Status: Chronic Code(s): G47.33 - OBSTRUCTIVE SLEEP APNEA (ADULT) (PEDIATRIC) SNOMED Code(s): 26761580 Comment: Continue home CPAP (9) Toe fracture, right Current Visit: Yes Status: Acute Code(s): S92.911A - UNSP FRACTURE OF RIGHT TOE(S), INIT FOR CLOS FX SNOMED Code(s): 21027703 Comment: prox phalynx and possible metatarsal consult ortho for proper weight bearing status and spint vs cast vs boot recommendation (10) Cellulitis Current Visit: Yes Status: Acute Code(s): L03.90 - CELLULITIS, UNSPECIFIED SNOMED Code(s): 232108577 Comment: In setting of lyphedema Started on clinda PO as outpatient Added CTX 06/06 for GPC coverage avoiding compression for lymphedema in setting of infection
[2017-06-09] MEDS: Atorvastatin* 80 MG TAB PO SCH (17:06)
[2017-06-10] MEDS: Levothyroxine TAB* 100 MCG TAB PO SCH (05:25)
[2017-06-10] MEDS: Heparin VIAL(*) 5000 UNITS/ML VIAL (FIVE THOUSAND) SUBCUT SCH ×3 (05:26→21:29)
[2017-06-10] MEDS: Acetaminophen TAB* 325 MG PO PRN ×3 (05:36→20:01)
[2017-06-10 06:54] LABS: EGFR Non-African American 46.7 (>60)
[2017-06-10] MEDS: PTO:Umeclidin/Vilant 62.5 MDI 62.5/25 mcg 14 INH ELLIPTA DEVICE INH SCH (08:17)
[2017-06-10] MEDS ORDERED: Torsemide TAB* 20 MG PO SCH (09:00)
[2017-06-10] MEDS: Clindamycin CAP* 150 MG PO SCH ×3 (09:34→20:19)
[2017-06-10] MEDS: Metoprolol Succinate XL TAB* 50 MG PO SCH (09:34)
[2017-06-10] MEDS: amLODIPine TAB* 5 MG PO SCH (09:34)
[2017-06-10] MEDS: Magnesium Hydroxide LIQ* 30 ML UDC PO SCH (09:34)
[2017-06-10] MEDS: Aspirin EC TAB* 81 MG TAB.EC PO SCH (09:35)
[2017-06-10] MEDS: Potassium Chlor TAB* 20 MEQ TAB.ER PO SCH ×2 (09:35→20:19)
[2017-06-10] MEDS: cefTRIAXone VIAL(*) 1,000 MG in NS 0.9% 50 ML* 50 ML IVPB SCH (11:43)
[2017-06-10] MEDS: cefTRIAXone 1000 MG SYRINGE IVPB Q24H (in NaCl) IVPB SCH ×2 (11:44)
[2017-06-10] MEDS: Atorvastatin* 80 MG TAB PO SCH (17:05)
--- NOTE | 2017-06-10 18:29 | PN ---
Subjective Date of Service: 06/10/17 Interval History: No new c/o. was present during dressing change and state the leg looks the best it has since admission but is still red. Objective Active Medications: Acetaminophen (Tylenol Tab*) 650 mg PO Q6H PRN PRN Reason: PAIN Last Admin: 06/10/17 11:44 Dose: 650 mg Albuterol (Ventolin Hfa Inhaler*) 2 puff INH Q4H PRN PRN Reason: SHORTNESS OF BREATH Albuterol/Ipratropium (Duoneb (Albuterol 2.5 Mg/Ipratropium 0.5 Mg)) 1 neb INH Q4H PRN PRN Reason: SOB/WHEEZING Amlodipine Besylate (Norvasc Tab*) 10 mg PO QAM [facility] Last Admin: 06/10/17 09:34 Dose: 10 mg Aspirin (Aspirin Ec Tab*) 81 mg PO DAILY [facility] Last Admin: 06/10/17 09:35 Dose: 81 mg Atorvastatin Calcium (Lipitor*) 80 mg PO 1700 [facility] Last Admin: 06/10/17 17:05 Dose: 80 mg Clindamycin HCl (Cleocin Cap*) 300 mg PO TID [facility] Last Admin: 06/10/17 13:56 Dose: 300 mg Heparin Sodium (Porcine) (Heparin Vial(*)) 5,000 units SUBCUT Q8HR [facility] Last Admin: 06/10/17 13:59 Dose: 5,000 units Ceftriaxone Sodium 1,000 mg/ (Sodium Chloride) 50 mls @ 200 mls/hr IVPB 1100 [facility] Last Admin: 06/10/17 11:43 Dose: 200 mls/hr Levothyroxine Sodium (Synthroid Tab*) 300 mcg PO MoTuWeThFrSa@0600 [facility] Last Admin: 06/10/17 05:25 Dose: 300 mcg Magnesium Hydroxide (Milk Of Magnesia Liq*) 30 ml PO DAILY [facility] Last Admin: 06/10/17 09:34 Dose: 30 ml Metoprolol Succinate (Toprol Xl Tab*) 25 mg PO QAM [facility] Potassium Chloride (Klor Con Er Tab*) 20 meq PO BID [facility] Last Admin: 06/10/17 09:35 Dose: 20 meq Torsemide (Demadex*) 40 mg PO DAILY [facility] Umeclidinium/Vilanterol (Anoro 62.5/25 Ellipta Device (Nf)) 2 inh INH DAILY [facility] Last Admin: 06/10/17 08:17 Dose: 2 puff Vital Signs - 8 hr 06/10/17 06/10/17 06/10/17 11:20 15:15 15:40 Temperature 97.6 F 97.5 F 99 F Pulse Rate 66 65 66 Respiratory 18 20 18 Rate Blood Pressure 107/52 116/49 127/49 (mmHg) O2 Sat by Pulse 94 94 88 Oximetry Oxygen Devices in Use Now: Nasal Cannula Appearance: Alert, in a chair with both feet on the floor. In good spirits. Looks comfortable. Eyes: No Scleral Icterus Extremities: No Clubbing, Cyanosis, - - marked sorin R lower leg. Bandage in place Neurological: Alert and Oriented x 3, NL Sensation Result Diagrams: 06/05/17 14:45 06/10/17 07:10 Additional Lab and Data: Lab Results 06/05/17 06/05/17 Range/Units 14:45 14:45 WBC 10.7 (3.5-10.8) 10^3/ul RBC 3.86 L (4.0-5.4) 10^6/ul Hgb 11.1 L (14.0-18.0) g/dl Hct 34 L (42-52) % MCV 87 (80-94) fL MCH 29 (27-31) pg MCHC 33 (31-36) g/dl RDW 15 (10.5-15) % Plt Count 188 (150-450) 10^3/ul MPV 7.8 (7.4-10.4) um3 Neut % (Auto) 73.7 (38-83) % Lymph % (Auto) 13.8 L (25-47) % [place] % (Auto) 8.6 H (0-7) % Eos % (Auto) 2.9 (0-6) % Baso % (Auto) 1.0 (0-2) % Absolute Neuts (auto) 7.9 H (1.5-7.7) 10^3/ul Absolute Lymphs (auto) 1.5 (1.0-4.8) 10^3/ul Absolute Monos (auto) 0.9 H (0-0.8) 10^3/ul Absolute Eos (auto) 0.3 (0-0.6) 10^3/ul Absolute Basos (auto) 0.1 (0-0.2) 10^3/ul Absolute Nucleated RBC 0 10^3/ul Nucleated RBC % 0 Sodium Pending Potassium Pending Chloride Pending Carbon Dioxide Pending Anion Gap Pending BUN Pending Creatinine Pending Est GFR ( Amer) Pending Est GFR (Non-Af Amer) Pending BUN/Creatinine Ratio Pending Glucose Pending Calcium Pending Total Bilirubin Pending AST Pending ALT Pending Alkaline Phosphatase Pending Troponin I 0.01 (<0.04) ng/mL C-Reactive Protein Pending Total Protein Pending Albumin Pending Globulin Pending Albumin/Globulin Ratio Pending Microbiology and Other Data: Microbiology 06/06/17 10:52 Skin and Soft Tissue MRSA/MSSA (PCR - Final Leg Right Mrsa Negative S.aureus Negative Gram Stain - Final Assess/Plan/Problems-Billing Assessment: 76 yo M h/o CAD/CABG 7 yrs prior with vein harvest RLE, morbid obesity, lymphedema (about 4 years), CKD, COPD, JULIANE on CPAP, dCHF, recurent cellulitis p/ w recurrent falls c/b right great toe fracture, cellulitis overlying largest area of lymphedema in RLE - Patient Problems (1) Lymphedema Current Visit: Yes Status: Chronic Code(s): I89.0 - LYMPHEDEMA, NOT ELSEWHERE CLASSIFIED SNOMED Code(s): 928522551 Comment: Severe. Cellulitis improved on 06/08. Mass may represent massive localized lymphedema Suspect developed in setting of morbid obesity, chronic venous stasis and right vein grafting. Continue IV ceftriaxone and po clindamycin. was seeing specialist in [place] which I agree with Treat underlying CHF, COPD/JULIANE likely increasing venous return (2) CKD (chronic kidney disease) Current Visit: Yes Status: Chronic Code(s): N18.9 - CHRONIC KIDNEY DISEASE, UNSPECIFIED SNOMED Code(s): 707450446 Comment: Creatinint 1.46 on 06/10. Increase torsemide to 40 mg daily. Needs close fup of renal function. (3) COPD (chronic obstructive pulmonary disease) Current Visit: Yes Status: Chronic Code(s): J44.9 - CHRONIC OBSTRUCTIVE PULMONARY DISEASE, UNSPECIFIED SNOMED Code(s): 07444699 Comment: Continue eduar nicole not in exacerbation (4) Diastolic CHF Current Visit: Yes Status: Chronic Code(s): I50.30 - UNSPECIFIED DIASTOLIC ( CONGESTIVE) HEART FAILURE SNOMED Code(s): 052474818 Comment: c/b worsening renal function BNP only 18 (though can be falsely low in morbid obesity) CXR with e/o COPD but not volume overload massive weight gain over last year Torsemide stopped due to rising creatinine. Creatinine down to 1.71 on 06/09. Re- started torsemide at 20 mg daily 06/10, then 40 mg daily 06/11. (5) Falls frequently Current Visit: Yes Status: Acute Code(s): R29.6 - REPEATED FALLS SNOMED Code(s): 790042072 Comment: Suspect deconditioning in addition to large legs (lymphedema and dCHF) PT/OT may need OBED and or not capable of walking His decline has been slowly progressing over 4 years (6) HTN (hypertension) Current Visit: No Status: Chronic Code(s): I10 - ESSENTIAL (PRIMARY) HYPERTENSION SNOMED Code(s): 85592601 Comment: - Continue amlodipine, torsemide is on hold. (7) Morbid obesity Current Visit: Yes Status: Acute Code(s): E66.01 - MORBID (SEVERE) OBESITY DUE TO EXCESS CALORIES SNOMED Code(s): 728048914 Comment: BMI 47.1 (8) JULIANE (obstructive sleep apnea) Current Visit: Yes Status: Chronic Code(s): G47.33 - OBSTRUCTIVE SLEEP APNEA (ADULT) (PEDIATRIC) SNOMED Code(s): 77199375 Comment: Continue home CPAP (9) Toe fracture, right Current Visit: Yes Status: Acute Code(s): S92.911A - UNSP FRACTURE OF RIGHT TOE(S), INIT FOR CLOS FX SNOMED Code(s): 48024827 Comment: prox phalynx and possible metatarsal consult ortho for proper weight bearing status and spint vs cast vs boot recommendation
[2017-06-11] MEDS: Acetaminophen TAB* 325 MG PO PRN ×3 (04:33→19:40)
[2017-06-11] MEDS: Levothyroxine TAB* 100 MCG TAB PO SCH (05:43)
[2017-06-11] MEDS: Heparin VIAL(*) 5000 UNITS/ML VIAL (FIVE THOUSAND) SUBCUT SCH ×3 (05:44→21:52)
[2017-06-11] MEDS: PTO:Umeclidin/Vilant 62.5 MDI 62.5/25 mcg 14 INH ELLIPTA DEVICE INH SCH (07:56)
[2017-06-11] MEDS: Magnesium Hydroxide LIQ* 30 ML UDC PO SCH (08:28)
[2017-06-11] MEDS: Torsemide TAB* 20 MG PO SCH (08:29)
[2017-06-11] MEDS: Metoprolol Succinate XL TAB* 25 MG PO SCH (08:30)
[2017-06-11] MEDS: Aspirin EC TAB* 81 MG TAB.EC PO SCH (08:30)
[2017-06-11] MEDS: Potassium Chlor TAB* 20 MEQ TAB.ER PO SCH ×2 (08:30→20:15)
[2017-06-11] MEDS: amLODIPine TAB* 5 MG PO SCH (08:30)
[2017-06-11] MEDS: Clindamycin CAP* 150 MG PO SCH ×3 (08:30→20:14)
[2017-06-11] MEDS: cefTRIAXone VIAL(*) 1,000 MG in NS 0.9% 50 ML* 50 ML IVPB SCH (11:43)
--- NOTE | 2017-06-11 16:22 | PN ---
Subjective Date of Service: 06/11/17 Interval History: Patient seen and examined at bedside. Denies fever, shortness of breath, chest discomfort, N/V/D. Pt reports chills. Pt states that he has had LE swelling for about 4 years and has been to many doctors to evaluate his leg. Tele: Sinus rhythm, rate 70's. Family History: Unchanged from Admission Social History: Unchanged from Admission Past Medical History: Unchanged from Admission Objective Active Medications: Acetaminophen (Tylenol Tab*) 650 mg PO Q6H PRN Reason: PAIN Albuterol (Ventolin Hfa Inhaler*) 2 puff INH Q4H PRN Reason: SHORTNESS OF BREATH Albuterol/Ipratropium (Duoneb (Albuterol 2.5 Mg/Ipratropium 0.5 Mg)) 1 neb INH Q4H PRN Reason: SOB/WHEEZING Amlodipine Besylate (Norvasc Tab*) 10 mg PO QAM BURKE Aspirin (Aspirin Ec Tab*) 81 mg PO DAILY BURKE Atorvastatin Calcium (Lipitor*) 80 mg PO 1700 BURKE Clindamycin HCl (Cleocin Cap*) 300 mg PO TID BURKE Heparin Sodium (Porcine) (Heparin Vial(*)) 5,000 units SUBCUT Q8HR BURKE Ceftriaxone Sodium 1,000 mg/ (Sodium Chloride) 50 mls @ 200 mls/hr IVPB 1100 BURKE Levothyroxine Sodium (Synthroid Tab*) 300 mcg PO MoTuWeThFrSa@0600 BURKE Magnesium Hydroxide (Milk Of Magnesia Liq*) 30 ml PO DAILY BURKE Metoprolol Succinate (Toprol Xl Tab*) 25 mg PO QAM BURKE Potassium Chloride (Klor Con Er Tab*) 20 meq PO BID BURKE Torsemide (Demadex*) 40 mg PO DAILY BURKE Umeclidinium/Vilanterol (Anoro 62.5/25 Ellipta Device (Nf)) 2 inh INH DAILY [facility] Vital Signs - 8 hr 06/11/17 06/11/17 11:49 12:09 Temperature 97.7 F Pulse Rate 64 Respiratory 20 Rate Blood Pressure 120/66 (mmHg) O2 Sat by Pulse 96 96 Oximetry Oxygen Devices in Use Now: None Appearance: NAD, sitting up in a chair Ears/Nose/Mouth/Throat: Mucous Membranes Moist Respiratory: Symmetrical Chest Expansion and Respiratory Effort, Clear to Auscultation Cardiovascular: NL Sounds; No Murmurs; No JVD, RRR Abdominal: NL Sounds; No Tenderness; No Distention Extremities: - - Bilateral LE edema Skin: - - Bilateral LE ckin changes consistent with chronic lymphedema Neurological: Alert and Oriented x 3, NL Muscle Strength and Tone Lines/Tubes/Other Access: Clean, Dry and Intact Peripheral IV - site benign Nutrition: Taking PO's Result Diagrams: 06/05/17 14:45 06/10/17 07:10 Additional Lab and Data: Microbiology and Other Data: Microbiology 06/06/17 10:52 Skin and Soft Tissue MRSA/MSSA (PCR - Final Leg Right Mrsa Negative S.aureus Negative Gram Stain - Final Diagnostic Imaging: Microbiology 06/06/17 10:52 Leg Right Skin and Soft Tissue MRSA/MSSA (PCR - Final 06/06/17 10:52 Leg Right Wound Culture - Final Mrsa Negative S.aureus Negative Enterobacter Cloacae Peptostreptococcus Anaerobius Normal Ana Assess/Plan/Problems-Billing Assessment: Ms. Benjamin is a 76 yo M h/o CAD/CABG 7 yrs prior with vein harvest RLE, morbid obesity, lymphedema (about 4 years), CKD, COPD, JULIANE on CPAP, dCHF, recurent cellulitis p/w recurrent falls c/b right great toe fracture, cellulitis overlying largest area of lymphedema in RLE. - Patient Problems (1) Lymphedema Code(s): I89.0 - LYMPHEDEMA, NOT ELSEWHERE CLASSIFIED SNOMED Code(s): 872964650 Comment: - Severe. Cellulitis improved on 06/08. - Mass on right lateral calf may represent massive localized lymphedema - Suspect developed in setting of morbid obesity, chronic venous stasis and right vein grafting. Was seeing a specialist in [place]. - Treat underlying CHF, COPD/JULIANE likely increasing venous return - Continue IV ceftriaxone and po clindamycin. (2) Cellulitis Code(s): L03.90 - CELLULITIS, UNSPECIFIED SNOMED Code(s): 543137003 Comment: - In setting of lyphedema, improving - Started on clinda PO as outpatient and ceftriaxone for GPC coverage - Will discontinue abx tomorrow (3) Toe fracture, right Code(s): S92.911A - UNSP FRACTURE OF RIGHT TOE(S), INIT FOR CLOS FX SNOMED Code(s): 36456452 Comment: - Prox phalynx and possible metatarsal - Ortho side consulted for proper weight bearing status, recommend heel weight bearing with a hard sole shoe - Outpatient ortho follow-up (4) Falls frequently Code(s): R29.6 - REPEATED FALLS SNOMED Code(s): 661391780 Comment: - Suspect deconditioning in addition to large legs (lymphedema and dCHF) - PT/OT may need OBED and or not capable of walking - His decline has been slowly progressing over 4 years (5) Morbid obesity Code(s): E66.01 - MORBID (SEVERE) OBESITY DUE TO EXCESS CALORIES SNOMED Code(s ): 117154242 Comment: - BMI 47.1 (6) CKD (chronic kidney disease) Code(s): N18.9 - CHRONIC KIDNEY DISEASE, UNSPECIFIED SNOMED Code(s): 895038425 Comment: - Creatinine 1.46 on 06/10. - Continue torsemide to 40 mg daily. - Needs close follow-up of renal function. (7) COPD (chronic obstructive pulmonary disease) Code(s): J44.9 - CHRONIC OBSTRUCTIVE PULMONARY DISEASE, UNSPECIFIED SNOMED Code(s): 13959453 Comment: - No signs of acute exacerbation - Continue duonebs and ellipta (8) Diastolic CHF Code(s): I50.30 - UNSPECIFIED DIASTOLIC (CONGESTIVE) HEART FAILURE SNOMED Code (s): 903017257 Comment: - c/b worsening renal function - BNP only 18 (though can be falsely low in morbid obesity) - CXR with e/o COPD but not volume overload - Massive weight gain over last year - Torsemide stopped due to rising creatinine. Creatinine down to 1.71 on 06/09. - Continue Torsemide (restarted 06/10), daily weights and strict I+O's (9) JULIANE (obstructive sleep apnea) Code(s): G47.33 - OBSTRUCTIVE SLEEP APNEA (ADULT) (PEDIATRIC) SNOMED Code(s): 45615205 Comment: - Continue home CPAP (10) CAD (coronary artery disease) Code(s): I25.10 - ATHSCL HEART DISEASE OF [place] CORONARY ARTERY W/O ANG PCTRS SNOMED Code(s): 04453506 Comment: - Stable. - Continue Aspirin, metoprolol and statin. (11) HLD (hyperlipidemia) Code(s): E78.5 - HYPERLIPIDEMIA, UNSPECIFIED SNOMED Code(s): 51294545 Comment: - Continue statin (12) HTN (hypertension) Code(s): I10 - ESSENTIAL (PRIMARY) HYPERTENSION SNOMED Code(s): 62891184 Comment: - SBP 110-130's - Continue amlodipine and torsemide is on hold (13) DVT prophylaxis Code(s): MDB9999 - SNOMED Code(s): 399454915 Comment: - HSQ (14) Full code status Code(s): Z78.9 - OTHER SPECIFIED HEALTH STATUS SNOMED Code(s): 244702348 Status and Disposition: Inpatient. Discharge to home when medically stable, suspect he may need rehab vs PT at home.
[2017-06-11] MEDS: Atorvastatin* 80 MG TAB PO SCH (17:01)
[2017-06-12] MEDS: Acetaminophen TAB* 325 MG PO PRN (02:03)
[2017-06-12] MEDS: Levothyroxine TAB* 100 MCG TAB PO SCH (05:50)
[2017-06-12] MEDS: Heparin VIAL(*) 5000 UNITS/ML VIAL (FIVE THOUSAND) SUBCUT SCH (05:51)
[2017-06-12 07:00] LABS: EGFR Non-African American 42.9 (>60)
[2017-06-12] MEDS: Magnesium Hydroxide LIQ* 30 ML UDC PO SCH (07:19)
[2017-06-12] MEDS: amLODIPine TAB* 5 MG PO SCH (07:20)
[2017-06-12] MEDS: Torsemide TAB* 20 MG PO SCH (07:20)
[2017-06-12] MEDS: Metoprolol Succinate XL TAB* 25 MG PO SCH (07:20)
[2017-06-12] MEDS: Aspirin EC TAB* 81 MG TAB.EC PO SCH (07:20)
[2017-06-12] MEDS: Potassium Chlor TAB* 20 MEQ TAB.ER PO SCH (07:20)
[2017-06-12] MEDS: Clindamycin CAP* 150 MG PO SCH (07:20)
[2017-06-12] MEDS: PTO:Umeclidin/Vilant 62.5 MDI 62.5/25 mcg 14 INH ELLIPTA DEVICE INH SCH (08:05)
[2017-06-12] MEDS: cefTRIAXone VIAL(*) 1,000 MG in NS 0.9% 50 ML* 50 ML IVPB SCH (10:33)
--- NOTE | 2017-06-12 10:38 | PN ---
Subjective Date of Service: 06/12/17 Interval History: Patient seen and examined at bedside. Denies fever, shortness of breath (mild after walks), chest discomfort, N/V/D. Pt continues to complain of chills. Tele: Sinus rhythm, rate 60-70's. Pt noted to be galen while sleeping. Family History: Unchanged from Admission Social History: Unchanged from Admission Past Medical History: Unchanged from Admission Objective Active Medications: Acetaminophen (Tylenol Tab*) 650 mg PO Q6H PRN Reason: PAIN Albuterol (Ventolin Hfa Inhaler*) 2 puff INH Q4H PRN Reason: SHORTNESS OF BREATH Albuterol/Ipratropium (Duoneb (Albuterol 2.5 Mg/Ipratropium 0.5 Mg)) 1 neb INH Q4H PRN Reason: SOB/WHEEZING Amlodipine Besylate (Norvasc Tab*) 10 mg PO QAM BURKE Aspirin (Aspirin Ec Tab*) 81 mg PO DAILY BURKE Atorvastatin Calcium (Lipitor*) 80 mg PO 1700 BURKE Clindamycin HCl (Cleocin Cap*) 300 mg PO TID BURKE Heparin Sodium (Porcine) (Heparin Vial(*)) 5,000 units SUBCUT Q8HR BURKE Ceftriaxone Sodium 1,000 mg/ (Sodium Chloride) 50 mls @ 200 mls/hr IVPB 1100 BURKE Levothyroxine Sodium (Synthroid Tab*) 300 mcg PO MoTuWeThFrSa@0600 BURKE Magnesium Hydroxide (Milk Of Magnesia Liq*) 30 ml PO DAILY BURKE Metoprolol Succinate (Toprol Xl Tab*) 25 mg PO QAM BURKE Potassium Chloride (Klor Con Er Tab*) 20 meq PO BID BURKE Torsemide (Demadex*) 40 mg PO DAILY BURKE Umeclidinium/Vilanterol (Anoro 62.5/25 Ellipta Device (Nf)) 2 inh INH DAILY [facility] Vital Signs - 8 hr 06/12/17 06/12/17 06/12/17 04:02 07:15 07:17 Temperature 97.7 F 97.7 F Pulse Rate 73 69 72 Respiratory 20 18 Rate Blood Pressure 127/55 115/52 126/74 (mmHg) O2 Sat by Pulse 96 95 Oximetry 06/12/17 06/12/17 07:28 08:06 Temperature Pulse Rate 71 Respiratory 18 16 Rate Blood Pressure (mmHg) O2 Sat by Pulse 96 Oximetry Oxygen Devices in Use Now: None Appearance: NAD, sitting up in a chair Ears/Nose/Mouth/Throat: Mucous Membranes Moist Respiratory: Symmetrical Chest Expansion and Respiratory Effort, Clear to Auscultation Cardiovascular: NL Sounds; No Murmurs; No JVD, RRR Extremities: - - Severe right LE sorin, mild to moderate left LE edema ( consistent with chronic lymphedema) Skin: - - Chronic bilateral LE chronic lymphedema changes Neurological: Alert and Oriented x 3, NL Muscle Strength and Tone Lines/Tubes/Other Access: Clean, Dry and Intact Peripheral IV - site benign Nutrition: Taking PO's Result Diagrams: 06/05/17 14:45 06/12/17 06:17 Additional Lab and Data: Microbiology and Other Data: Microbiology 06/06/17 10:52 Leg Right Skin and Soft Tissue MRSA/MSSA (PCR - Final 06/06/17 10:52 Leg Right Wound Culture - Final Mrsa Negative S.aureus Negative Enterobacter Cloacae Peptostreptococcus Anaerobius Normal Ana Assess/Plan/Problems-Billing Assessment: Ms. Benjamin is a 76 yo M h/o CAD/CABG 7 yrs prior with vein harvest RLE, morbid obesity, lymphedema (about 4 years), CKD, COPD, JULIANE on CPAP, dCHF, recurent cellulitis p/w recurrent falls c/b right great toe fracture, cellulitis overlying largest area of lymphedema in RLE. - Patient Problems (1) Lymphedema Code(s): I89.0 - LYMPHEDEMA, NOT ELSEWHERE CLASSIFIED SNOMED Code(s): 355684171 Comment: - Severe. Cellulitis improved on 06/08. - Mass on right lateral calf may represent massive localized lymphedema - Suspect developed in setting of morbid obesity, chronic venous stasis and right vein grafting. Was seeing a specialist in [place]. - Treat underlying CHF, COPD/JULIANE likely increasing venous return - Discontinue ABX (2) Cellulitis Code(s): L03.90 - CELLULITIS, UNSPECIFIED SNOMED Code(s): 871892819 Comment: - In setting of lyphedema, resolved - Started on clinda PO as outpatient and ceftriaxone for GPC coverage - Discontinue abx (3) Toe fracture, right Code(s): S92.911A - UNSP FRACTURE OF RIGHT TOE(S), INIT FOR CLOS FX SNOMED Code(s): 61930865 Comment: - Prox phalynx and possible metatarsal - Ortho side consulted for proper weight bearing status, recommend heel weight bearing with a hard sole shoe - Outpatient ortho follow-up (4) Falls frequently Code(s): R29.6 - REPEATED FALLS SNOMED Code(s): 513966275 Comment: - Suspect deconditioning in addition to large legs (lymphedema and dCHF) - Plan for home PT - His decline has been slowly progressing over 4 years (5) Morbid obesity Code(s): E66.01 - MORBID (SEVERE) OBESITY DUE TO EXCESS CALORIES SNOMED Code(s ): 053468124 Comment: - BMI 47.1 (6) CKD (chronic kidney disease) Code(s): N18.9 - CHRONIC KIDNEY DISEASE, UNSPECIFIED SNOMED Code(s): 545919177 Comment: - Creatinine 1.46 on 06/10. - Continue torsemide to 40 mg daily. - Needs close follow-up of renal function. (7) COPD (chronic obstructive pulmonary disease) Code(s): J44.9 - CHRONIC OBSTRUCTIVE PULMONARY DISEASE, UNSPECIFIED SNOMED Code(s): 98224087 Comment: - No signs of acute exacerbation - Continue duonebs and ellipta (8) Diastolic CHF Code(s): I50.30 - UNSPECIFIED DIASTOLIC (CONGESTIVE) HEART FAILURE SNOMED Code (s): 800404041 Comment: - c/b worsening renal function - BNP only 18 (though can be falsely low in morbid obesity) - CXR with e/o COPD but not volume overload - Massive weight gain over last year - Torsemide stopped due to rising creatinine. Creatinine down to 1.71 on 06/09. - Continue Torsemide (restarted 06/10), daily weights and strict I+O's (9) JULIANE (obstructive sleep apnea) Code(s): G47.33 - OBSTRUCTIVE SLEEP APNEA (ADULT) (PEDIATRIC) SNOMED Code(s): 45642619 Comment: - Continue home CPAP (10) CAD (coronary artery disease) Code(s): I25.10 - ATHSCL HEART DISEASE OF [place] CORONARY ARTERY W/O ANG PCTRS SNOMED Code(s): 57725479 Comment: - Stable. - Continue Aspirin, metoprolol and statin. (11) HLD (hyperlipidemia) Code(s): E78.5 - HYPERLIPIDEMIA, UNSPECIFIED SNOMED Code(s): 38095022 Comment: - Continue statin (12) HTN (hypertension) Code(s): I10 - ESSENTIAL (PRIMARY) HYPERTENSION SNOMED Code(s): 42669599 Comment: - SBP 110-130's - Continue amlodipine and torsemide decreased (13) DVT prophylaxis Code(s): YFT0538 - SNOMED Code(s): 505126812 Comment: - HSQ (14) Full code status Code(s): Z78.9 - OTHER SPECIFIED HEALTH STATUS SNOMED Code(s): 032337297 Status and Disposition: Inpatient. Stable for discharge to home today.
[2017-06-12 12:10] VITALS: BP 125/59
--- NOTE | 2017-06-13 03:14 | DS ---
CC: Dr. Rishi Alvares; Dr. Zeeshan Fong * DISCHARGE SUMMARY: DATE OF ADMISSION: 06/05/17 DATE OF DISCHARGE: 06/12/17 ATTENDING PHYSICIAN: Dr. Maria Esther Donnelly * (dictated by Tamara Cloud NP). PRIMARY CARE PROVIDER: Dr. Zeeshan Fong. PRIMARY DIAGNOSES: 1. Cellulitis, right lower extremity. 2. Chronic lymphedema. 3. Right toe fracture. 4. Frequent falls. 5. Hypokalemia, resolved. SECONDARY DIAGNOSES: 1. Morbid obesity. 2. Chronic kidney disease. 3. Chronic obstructive pulmonary disease. 4. Diastolic heart failure. 5. Obstructive sleep apnea. 6. Coronary artery disease. 7. Hyperlipidemia. 8. Hypertension. STUDIES WHILE IN THE HOSPITAL: 1. Right foot x-ray on 06/05/17. Radiologist's impression: Acute fracture of the great toe as described. 2. Right wrist x-ray on 06/05/17. Radiologist's impression: Soft tissue swelling. No acute fracture. 3. Chest x-ray on 06/05/17. Radiologist's impression: Mild pulmonary vascular congestion and interstitial edema. No traumatic injury evident. DISCHARGE MEDICATIONS: New home medications: 1. Acetaminophen 650 mg oral every 6 hours as needed for pain. 2. Potassium chloride 20 mEq oral daily. Continued home medications: 1. Amlodipine 10 mg oral daily. 2. Levothyroxine 30 mcg oral daily. 3. Albuterol HFA 2 puffs inhalation every 4 hours as needed for shortness of breath. 4. Aspirin 81 mg oral daily. 5. DuoNeb 1 neb inhalation every 4 hours as needed for shortness of breath or wheeze. 6. Rosuvastatin 40 mg oral daily. 7. Anoro Ellipta 62.5 two puffs inhalation daily. Changed home medications: 1. Torsemide decreased to 40 mg daily. 2. Metoprolol succinate decreased to 25 mg oral daily. Discontinued home medications: Clindamycin. HISTORY OF PRESENT ILLNESS/HOSPITAL COURSE: Mr. Benjamin is a 76-year-old male with past medical history significant for coronary artery disease status post CABG, morbid obesity, lymphedema, chronic kidney disease, COPD, obstructive sleep apnea, diastolic heart failure, recurrent cellulitis, and recurrent falls , who presented to the emergency room after falling. The patient was walking using his cane around a car, when he fell and hit his right foot, scratching his face. He followed up with his manager application development, Dr. Nieto who referred him for an x-ray of his foot and risk given the fall upon ambulating and to [facility]. The patient's rolling walker got away from him. He fell face forward and a clinical assessment team was called. The patient denied any loss of consciousness, shortness of breath, chest pain. He has a chronic right lower extremity lymphedema that has been bothering him and reducing his mobility. The patient is recently admitted after 3 falls a month prior and had been discharged to [facility] and then had been back home for a few weeks. The patient had been seen by his primary care provider, Dr. Fong and started on oral clindamycin for cellulitis. While in the emergency room, the patient had an x-ray showing a right great toe fracture. He had a wrist x-ray showing no signs of a fracture. He had wound cultures obtained. The hospitalists were asked to evaluate the patient for admission. While in the hospital, the patient was treated for cellulitis. He received 7 days of clindamycin and ceftriaxone. His mass on the right lateral aspect of his calf that represented localized lymphedema. For his right great toe fracture, it was recommended that he walk heel weightbearing in a hard sole shoe. The patient was falling frequently, had physical therapy, it was recommended that he had home physical therapy at discharge. The patient was noted to have slightly elevated creatinine during his stay. His torsemide was decreased to 40 mg daily. He was also noted to be hypokalemic during his stay and he was started on potassium supplementation. During his stay, his CRP started to improve. The patient was doing well, able to ambulate in the halls without difficulty. Mr. Benjamin is stable for discharge to home today. Vital signs are as follows: Temperature 98.1, heart rate 71, respiratory rate 18, O2 sat 94% on room air, blood pressure 125/59. DISCHARGE PLAN: Mr. Benjamin will be discharged to home. Activity as tolerated. He has been asked to ambulate with a postop shoe. In regards to his lymphedema , I suspect this no longer represents a cellulitis and his antibiotics have been stopped. He has been encouraged to go back to the lymphedema clinic in either [place] or [place] where he was previously gone. He has been instructed to continue to wrap his legs from toes up. The patient has been asked to wash his legs daily with soap and water and apply moisturizing lotion prior to the Rodney wraps. The patient has a followup appointment with his primary care provider, Dr. Fong on , 06/18/17 at 2 p.m. in regards to his right great toe fracture. He has an appointment with Dr. Alvares on 06/16/17 at 11 a.m. He has been asked to ambulate only with a postop shoe on his right foot. Due to the patient's elevated creatinine, his torsemide has been decreased to 40 mg daily and his metoprolol was decreased to 20 mg daily during his stay. He was started on potassium supplementation due to hypokalemia during his stay and to take acetaminophen as needed for pain. He has been asked to return to the emergency room for any chest pain or shortness of breath. POINTS OF DISCUSSION: Please continue to encourage the patient to follow up with lymphedema clinic. At followup, continue to monitor his renal function and further adjust his torsemide as needed according to his renal function and heart failure status. This is a summarized report of a complex medical history and hospital stay. For further details, please see the entire medical record. TIME SPENT: Time for this discharge was approximately 50 minutes, greater than half of that was spent with the patient discussing discharge plans and instructions. TAMARA PICKENS NP [id number]/[facility] #: [id number] NATHALY
== END 2017-06-12 13:00 | disposition home health service (06) | DRG 603 ==
LOC: ED 12:43 → MED 16:20
PROVIDERS: ADMIT Internal Medicine; ATTEND Internal Medicine
PROC: 5A09357 Assistance with Respiratory Ventilation, Less than 24 Consecutive Hours, Continuous Positive Airway Pressure (ICD-10-PCS; principal; 2017-06-07)
DX: L03.115 Cellulitis of right lower limb (principal); Z68.42 Body mass index [BMI] 45.0-49.9, adult; I13.0 Hypertensive heart and chronic kidney disease with heart failure and stage 1 through stage 4 chronic kidney disease, or unspecified chronic kidney disease; I50.30 Unspecified diastolic (congestive) heart failure; E66.2 Morbid (severe) obesity with alveolar hypoventilation; I45.2 Bifascicular block; B96.89 Other specified bacterial agents as the cause of diseases classified elsewhere; I89.0 Lymphedema, not elsewhere classified; S92.411A Displaced fracture of proximal phalanx of right great toe, initial encounter for closed fracture; W18.30XA Fall on same level, unspecified, initial encounter; I87.8 Other specified disorders of veins; E87.6 Hypokalemia; N18.9 Chronic kidney disease, unspecified; I25.10 Atherosclerotic heart disease of native coronary artery without angina pectoris; J44.9 Chronic obstructive pulmonary disease, unspecified; G47.33 Obstructive sleep apnea (adult) (pediatric); E78.5 Hyperlipidemia, unspecified; E03.9 Hypothyroidism, unspecified; Z91.81 History of falling; Z79.82 Long term (current) use of aspirin; Y92.009 Unspecified place in unspecified non-institutional (private) residence as the place of occurrence of the external cause; Z95.1 Presence of aortocoronary bypass graft; Z79.899 Other long term (current) drug therapy; Z88.5 Allergy status to narcotic agent
CPT/HCPCS: 36415; 71046; 80048; 80053; 81003; 83605; 83880; 84484; 85025; 86140; 87040; 87070; 87076; 87077; 87186; 87205; 87640; 87641; 93005; 94640; 94660; 94760; 99283; A9270-GY; G8978-GP-CI; G8978-GP-CJ; G8979-GP-CI; G8987-GO-CI; G8988-GO-CI; G8989-GO-CI; J0696; J1644; J1940

== ENCOUNTER 2017-06-27 13:39 | Inpatient (IN) | payer MEDICARE, BC ==
[2017-06-27] MEDS ORDERED: NS 0.9% 1000 ML* 1,000 ML IV ONE (14:05)
[2017-06-27] MEDS ORDERED: Acetaminophen TAB* 325 MG PO ONE (14:05)
[2017-06-27] MEDS ORDERED: cefTRIAXone(*) 1 GM in NS 0.9% 50 ML* 50 ML IVPB ONE (14:19)
[2017-06-27 15:01] LABS: ABS Basophils 0 10^3/ul (0-0.2); ABS Eosinophils 0.1 10^3/ul (0-0.6); ABS Monocytes 0.7 10^3/ul (0-0.8); ABS Neutrophils 14.7 10^3/ul (1.5-7.7); ABS Nucleated RBC 0 10^3/ul; Eosinophil % 0.7 % (0-6); Hematocrit 34 % (42-52); Hemoglobin 10.9 g/dl (14.0-18.0); Lymphocyte % 6.1 % (25-47); Mean Corpuscular HGB Conc 32 g/dl (31-36); Mean Corpuscular Hemoglobin 27 pg (27-31); Mean Corpuscular Volume 87 fL (80-94); Mean Platelet Volume 7.8 um3 (7.4-10.4); Nucleated Red Blood Cells % 0; Platelet Count 171 10^3/ul (150-450); Red Blood Count 3.96 10^6/ul (4.0-5.4); Red Cell Distribution Width 15 % (10.5-15); White Blood Count 16.6 10^3/ul (3.5-10.8)
[2017-06-27 15:14] LABS: EGFR Non-African American 47.1 (>60)
[2017-06-27 15:16] LABS: INR 1.08 (0.77-1.02)
--- NOTE | 2017-06-27 15:34 | RAD ---
Indication: Shortness of breath, neck pain. Single frontal view of the chest performed at 1453 hours was reviewed. Comparison is made with previous exam dated June 05, 2017. Cardiomegaly is noted. Interstitial edema is noted. No alveolar consolidation is noted. IMPRESSION: CARDIOMEGALY WITH INTERSTITIAL EDEMA CONSISTENT WITH VASCULAR CONGESTION.
[2017-06-27] MEDS ORDERED: Piperacillin/Tazobac ADVAN(*) 3.375 GM in NS 0.9% 100 ML* 100 ML IVPB ONE ×2 (15:40→17:00)
[2017-06-27] MEDS ORDERED: Vancomycin(*) 1,000 MG in NS 0.9% 250 ML* 250 ML IVPB ONE ×2 (15:40→19:30)
[2017-06-27] MEDS ORDERED: Diltiazem DRIP* 100 MG/100 ML ADDV.BAG IVPB ONE (16:04)
--- NOTE | 2017-06-27 16:29 | HP ---
H&P (Free Text) History and Physical: History and Physical - Critical Care Limitations in history/physical: none HPI: 73y M pmhx of morbid obesity, CKD, COPD, JULIANE on CPAP, CAD s/p CABG, Chronic diastolic dysfunction, Chronic lymphedema of lower extremities with history of recurrent infections, HTN, HLD, hypothyroidism; presents to ER after he felt worse at home. was changing his dressings of the right leg when he developed some resp distress, felt weak and not well. They called EMS. On arrival he was tachardic, febrile 103, BP stable, placed on 2L NC. Brought to Er , found to be febrile 106, then 104 F, tachycardic, BP 130s, sats 91% on RA, placed on 2L NC with sats 97%+ then. He states he was recently here in hospital. Record demonstrates admission for possible infection of the right leg and was treated with clindamycin and discharged home. In ER, they suspect severe sepsis, given ceftriaxone IV. CXR with congestion but similar as prior cxr from 06/05. He shows a elevated WBC of 16, negative LA and procalcitonin level. Called for ICU eval of sepsis. ROS: negative except for pertinent positives mentioned above. PMHx: morbid obesity, CKD, COPD, JULIANE on CPAP, CAD s/p CABG, Chronic diastolic dysfunction, Chronic lymphedema of lower extremities with history of recurrent infections, HTN, HLD, hypothyroidism PSHx: CABG Family History: sudden cardiac of father at age 57, Mother at 95 with colon cancer. Social History: Alcohol-none, Smoking-none, Drug use-none; retired [employer]; to [employer]. Allergies: morphine Home Medications: Norvasc 10, aldactone 25, crestor 40, KCL 20, Metoprolol XL 25mg daily, synthroid 30mcg daily, albuterol 2puff daily, asa 81, anoro ellipta 62.5 2 puff daily, torsemide 40mg daily Tele: sinus tachycardia Vitals: Vital Signs Temp 104.4 F 06/27/17 15:14 Pulse 119 06/27/17 15:00 Resp 22 06/27/17 15:00 BP 131/72 06/27/17 14:53 Pulse Ox 91 06/27/17 15:00 Intake & Output 06/26/17 06/27/17 06/27/17 18:59 06:59 18:59 Intake Total 2100 Balance 2100 Intake: IV Fluids 1050 IVPB 1050 O2/Vent: 2L NC Infusions: NS infusing Current Medications: Vancomycin HCl 1,000 mg/ (Sodium Chloride) 250 mls @ 166.667 mls/hr IVPB ED ONCE ONE Stop: 06/27/17 17:09 Diltiazem HCl (Cardizem Iv Advan*) 100 mg in 100 mls @ 5 mls/hr IVPB ED ONCE ONE; 5 MG/HR PRN Reason: Protocol Stop: 06/28/17 12:03 Physical Exam: General: awake, alert, mild distress from pain in leg and back, obese+ Head: normocephalic, atraumatic HEENT: no pallor, no icterus, moist mucous membranes Neck: soft, supple, no jvd, no stridor CVS: tachy, regular, no murmur Resp: bilateral air entry, some basilar crackles, but no wheezing/rhonchi or rhales elsewhere, no acc muscle use Abdomen: soft, nontender, nondistended, bowel sounds present, obese Ext: pulses+, warm; left lower leg with erythema, dry appearing but has edema+, warm, nontender; right leg with chronic lymphedema, areas of large growth of edema on lateral aspect and cracked open but no ulceration present, no pus being drained, mild serous drainage, not foul smelling, erythema+ Skin: as above Neuro: awake, alert, orientedx3, moving all extremities, no gross focal deficit Labs: Laboratory Results - last 24 hr 06/27/17 06/27/17 06/27/17 14:15 14:15 14:15 WBC RBC Hgb Hct MCV MCH MCHC RDW Plt Count MPV Neut % (Auto) Lymph % (Auto) [place] % (Auto) Eos % (Auto) Baso % (Auto) Absolute Neuts (auto) Absolute Lymphs (auto) Absolute Monos (auto) Absolute Eos (auto) Absolute Basos (auto) Absolute Nucleated RBC Nucleated RBC % INR (Anticoag Therapy) 1.08 H APTT 30.0 Sodium 144 Potassium 4.0 Chloride 104 Carbon Dioxide 29 Anion Gap 11 BUN 33 H Creatinine 1.45 H Est GFR ( Amer) 60.5 Est GFR (Non-Af Amer) 47.1 BUN/Creatinine Ratio 22.8 H Glucose 110 H Lactic Acid Calcium 9.3 Total Bilirubin 0.50 AST 16 ALT 11 Alkaline Phosphatase 75 Troponin I 0.01 C-Reactive Protein 20.60 H B-Natriuretic Peptide 34 Total Protein 7.4 Albumin 3.7 Globulin 3.7 Albumin/Globulin Ratio 1.0 Procalcitonin Influenza A (Rapid) Influenza B (Rapid) 06/27/17 06/27/17 06/27/17 14:15 14:15 14:15 WBC 16.6 H RBC 3.96 L Hgb 10.9 L Hct 34 L MCV 87 MCH 27 MCHC 32 RDW 15 Plt Count 171 MPV 7.8 Neut % (Auto) 88.8 H Lymph % (Auto) 6.1 L [place] % (Auto) 4.1 Eos % (Auto) 0.7 Baso % (Auto) 0.3 Absolute Neuts (auto) 14.7 H Absolute Lymphs (auto) 1.0 Absolute Monos (auto) 0.7 Absolute Eos (auto) 0.1 Absolute Basos (auto) 0 Absolute Nucleated RBC 0 Nucleated RBC % 0 INR (Anticoag Therapy) APTT Sodium Potassium Chloride Carbon Dioxide Anion Gap BUN Creatinine Est GFR ( Amer) Est GFR (Non-Af Amer) BUN/Creatinine Ratio Glucose Lactic Acid 1.5 Calcium Total Bilirubin AST ALT Alkaline Phosphatase Troponin I C-Reactive Protein B-Natriuretic Peptide Total Protein Albumin Globulin Albumin/Globulin Ratio Procalcitonin 0.5 Influenza A (Rapid) Influenza B (Rapid) 06/27/17 15:28 WBC RBC Hgb Hct MCV MCH MCHC RDW Plt Count MPV Neut % (Auto) Lymph % (Auto) [place] % (Auto) Eos % (Auto) Baso % (Auto) Absolute Neuts (auto) Absolute Lymphs (auto) Absolute Monos (auto) Absolute Eos (auto) Absolute Basos (auto) Absolute Nucleated RBC Nucleated RBC % INR (Anticoag Therapy) APTT Sodium Potassium Chloride Carbon Dioxide Anion Gap BUN Creatinine Est GFR ( Amer) Est GFR (Non-Af Amer) BUN/Creatinine Ratio Glucose Lactic Acid Calcium Total Bilirubin AST ALT Alkaline Phosphatase Troponin I C-Reactive Protein B-Natriuretic Peptide Total Protein Albumin Globulin Albumin/Globulin Ratio Procalcitonin Influenza A (Rapid) Negative Influenza B (Rapid) Negative Imaging: cxr 06/27 - mild congestion noted, as prior 06/05 cxr; question of left retrocardiac increased interstitial markings and airbronchograms Assessment: 73y M pmhx of morbid obesity, CKD, COPD, JULIANE on CPAP, CAD s/p CABG, Chronic diastolic dysfunction, Chronic lymphedema of lower extremities with history of recurrent infections, HTN, HLD, hypothyroidism; presents to ER after he felt worse at home. was changing his dressings of the right leg when he developed some resp distress, felt weak and not well. They called EMS. On arrival he was tachardic, febrile 103, BP stable, placed on 2L NC. Brought to Er , found to be febrile 106, then 104 F, tachycardic, BP 130s, sats 91% on RA, placed on 2L NC with sats 97%+ then. -Sepsis, unclear etiology but suspect right leg lymphedema infection vs possible pneumonia? -Hypoxia CKD Morbid obesity Chronic Lymphedema COPD Chronic LV diastolic dysfunction Hypothyroidism Plan: Neuro- stable, anxious, in pain. moving all ext. delirium prec. CVS- BP stable. Tachycardic but appears sinus. recieved 1 L NS. BNP normal, cxr unchanged but no sig new rhales, skin dry appearing. Does not appear volume overloaded but has chronic LE edema. Will cont mild IVF hydration for 24 hours, seems NS has made his HR come down to lower 100s. Will be more careful of hydration given h/o diastolic HF. Need to optimize HR. IV abx for pneumonia vs lymphedema coverage. Blood cx, urinalysis. Cont metoprolol XL 25mg daily. Hold other antihypertensives. cont Asa for CAd. Resp- on 2 L NC. CXR not as remarkable. Will obtain CT chest w/o contrast. IV abx. Bronchodilators. No wheezing, no steroids indicated. CPAP at night. CXR repeat in AM. If further distress, repeat CXR and stop IVF, re-eval lasix dosing tomorrow once sepsis seem stable. ID- febrile 104, wbc 16, procal neg, LA neg. Possible source may be Right leg infection from under lymphedema but looks mild. CXR not overtly with large infiltrates when compared. Check urinarlysis/culture. blood cultures. Change ceftriaxone to zosyn and vancomycin IV (day#1). GI- cardiac diet. Renal- CKD baseline, unchanged. BNP lower. Monitor urine output. K okay, no acidosis noted. Hold lasix today. Will give mild gentle hydration Heme- hg stable, plt okay. Cont ASA. no AC Endo- fingersticks as needed. Musculsk- right leg and left leg wound care and dressings. keep elevated. Wounds- right leg chronic lymphedema noted, not much purulent drainge. likely with multiple bacteria. wound care and elevation. Nutrition- cardiac diet DVT prophylaxis: heparin sq GI prophylaxis: - Disposition: admit to medical floor Code Status: full code Av Breaux MD Energy Assistant (Electronically Signed)
--- NOTE | 2017-06-27 16:38 | ED ---
Devaughn Ortiz Jennifer, scribed for Edi Pressley MD on 06/27/17 at 1407 . Complex/Multi-Sys Presentation - HPI Summary HPI Summary: The patient is a 76 year old male brought in by EMS with difficulty breathing that began this morning. The patients recounts that the patient had a slight limp this morning and was taking a shower when he started shaking and trembling. The patient then began vomiting. The didnt think she could bring him in by herself, so she called 911. The patient additionally complains of neck pain and is moaning and keeping his eyes shut due to the pain. EMS reported he also had a fever that has increased in the ED. He denies chest pain , abdominal pain, and issues with urinating and bowel movement. The reports that the patient was fine yesterday. - History Of Current Complaint Time Seen by Provider: 06/27/17 13:47 Hx Obtained From: Patient, Family/Violin Teacher - Onset/Duration: Sudden Onset, Lasting Hours, Still Present Timing: Constant Severity Currently: Moderate Severity Initially: Moderate Location: Pain At: - Neck Alleviating Factor(s): keeping eyes closed Associated Signs And Symptoms: Positive: Other - Difficulty breathing, short of breath, shaking, trembling, vomiting, neck pain, fever. NEGATIVE: chest pain, abdominal pain, issues with urinating or bowel movement - Allergies/Home Medications Allergies/Adverse Reactions: Allergies Allergy/AdvReac Type Severity Reaction Status Date / Time morphine Allergy Altered Verified 06/05/17 13:59 Mental Status Home Medications: Home Medications Ipratropium 0.5MG/2.5ML NEB* [Atrovent 0.5 MG NEB.SHAI*] 0.5 mg INH Q6H PRN 06/27 [History Confirmed 06/27/17] Levothyroxine TAB* [Synthroid TAB*] 200 mcg PO MOTUWETHFR 06/27/17 [History Confirmed 06/27/17] Levothyroxine TAB* [Synthroid TAB*] 300 mcg PO SUSA 06/27/17 [History Confirmed 06/27/17] Metoprolol Succinate XL TAB* [Toprol XL TAB*] 50 mg PO DAILY 06/27/17 [History Confirmed 06/27/17] Potassium Chlor TAB* [Klor Con ER TAB*] 20 meq PO DAILY 06/27/17 [History Confirmed 06/27/17] Rosuvastatin (NF) [Crestor] 40 mg PO DAILY 06/27/17 [History Confirmed 06/27/17] Spironolactone TAB* [Aldactone TAB*] 25 mg PO DAILY 06/27/17 [History Confirmed 06/27/17] amLODIPine TAB* [Norvasc 5 mg TAB*] 10 mg PO DAILY 06/27/17 [History Confirmed 06/27/17] PMH/Surg Hx/FS Hx/Imm Hx Endocrine/Hematology History: Reports: Hx Thyroid Disease Denies: Hx Diabetes Cardiovascular History: Reports: Hx Cardiomegaly, Hx Congestive Heart Failure, Hx Coronary Artery Disease, Hx Deep Vein Thrombosis - BL LEGS, Hx Hypercholesterolemia - HLD, Hx Hypertension, Hx Valvular Heart Disease - AORTIC VALVE, Other Cardiovascular Problems/Disorders - Lymphedema Denies: Hx Pacemaker/ICD Respiratory History: Reports: Hx Chronic Obstructive Pulmonary Disease (COPD) - according to H&P, Hx Sleep Apnea - CPAP, Other Respiratory Problems/Disorders - PLEURAL EFFUSION Denies: Hx Asthma - according to patient History: Reports: Hx Kidney Stones Denies: Hx Renal Disease Musculoskeletal History: Reports: Hx Arthritis, Hx Back Problems - spinal stenosis, Other Musculoskeletal History - spinal stenosis Sensory History: Reports: Hx Contacts or Glasses, Hx Hearing Problem Denies: Hx Hearing Aid Opthamlomology History: Reports: Hx Contacts or Glasses Psychiatric History: Denies: Hx Panic Disorder - Cancer History Hx Chemotherapy: No - Surgical History Surgery Procedure, Year, and Place: THOROCENTESIS x 2. CABG 2006. CARDIAC STENT 03/2002. tonsils,. LUMBAR SURGERY 10/23 Hx Anesthesia Reactions: No - Immunization History Date of Tetanus Vaccine: current Date of Influenza Vaccine: 2014 Infectious Disease History: No Infectious Disease History: Denies: Hx Clostridium Difficile, Hx Hepatitis, Hx Human Immunodeficiency Virus (HIV), Hx of Known/Suspected MRSA, Hx Shingles, Hx Tuberculosis, Hx Known/ Suspected VRE, Hx Known/Suspected VRSA, History Other Infectious Disease, Traveled Outside the [place] in Last 30 Days - Family History Known Family History: Positive: Hypertension - Social History Alcohol Use: None Hx Substance Use: No Substance Use Type: Reports: None Hx Tobacco Use: No Smoking Status (MU): Never Smoked Tobacco Review of Systems Positive: Fever Negative: Chest Pain Positive: Shortness Of Breath Positive: Vomiting. Negative: Abdominal Pain Positive: no symptoms reported. Negative: dysuria Positive: Myalgia - neck pain, Edema Neurological: Other - Shaking, trembling All Other Systems Reviewed And Are Negative: Yes Physical Exam - Summary Physical Exam Summary: General: moderately ill appearing, moderate pain distress. Moaning but responds to voice Skin: warm, color reflects adequate perfusion, dry Head: normal Eyes: EOMI, DEISY ENT: normal Neck: supple, nontender Respiratory: CTA, breath sounds present Cardiovascular: Tachycardic, regular rhythm Abdomen: soft, nontender Bowel: Hypoactive bowel sounds Musculoskeletal: Bilateral pedal edema, dressing on legs, edema in hands, strength/ROM intact Neurological: normal, sensory/motor intact, A&O x3 Psychological: affect/mood appropriate Triage Information Reviewed: Yes Vital Signs On Initial Exam: Initial Vitals Temp Pulse Resp BP Pulse Ox 106.3 F 124 28 163/77 87 06/27/17 13:55 06/27/17 13:55 06/27/17 13:55 06/27/17 13:55 06/27/17 13:55 Vital Signs Reviewed: Yes Diagnostics - Vital Signs Vital Signs Temp Pulse Resp BP Pulse Ox 06/27/17 13:55 106.3 F 124 28 163/77 87 - Laboratory Lab Results: Lab Results 06/27/17 06/27/17 06/27/17 Range/Units 14:15 14:15 14:15 WBC (3.5-10.8) 10^3/ul RBC (4.0-5.4) 10^6/ul Hgb (14.0-18.0) g/dl Hct (42-52) % MCV (80-94) fL MCH (27-31) pg MCHC (31-36) g/dl RDW (10.5-15) % Plt Count (150-450) 10^3/ul MPV (7.4-10.4) um3 Neut % (Auto) (38-83) % Lymph % (Auto) (25-47) % [place] % (Auto) (0-7) % Eos % (Auto) (0-6) % Baso % (Auto) (0-2) % Absolute Neuts (auto) (1.5-7.7) 10^3/ul Absolute Lymphs (auto) (1.0-4.8) 10^3/ul Absolute Monos (auto) (0-0.8) 10^3/ul Absolute Eos (auto) (0-0.6) 10^3/ul Absolute Basos (auto) (0-0.2) 10^3/ul Absolute Nucleated RBC 10^3/ul Nucleated RBC % INR (Anticoag Therapy) 1.08 H (0.77-1.02) APTT 30.0 (26.0-36.3) seconds Sodium 144 (139-145) mmol/L Potassium 4.0 (3.5-5.0) mmol/L Chloride 104 (101-111) mmol/L Carbon Dioxide 29 (22-32) mmol/L Anion Gap 11 (2-11) mmol/L BUN 33 H (6-24) mg/dL Creatinine 1.45 H (0.67-1.17) mg/dL Est GFR ( Amer) 60.5 (>60) Est GFR (Non-Af Amer) 47.1 (>60) BUN/Creatinine Ratio 22.8 H (8-20) Glucose 110 H (70-100) mg/dL Lactic Acid (0.5-2.0) mmol/L Calcium 9.3 (8.6-10.3) mg/dL Total Bilirubin 0.50 (0.2-1.0) mg/dL AST 16 (13-39) U/L ALT 11 (7-52) U/L Alkaline Phosphatase 75 (34-104) U/L Troponin I 0.01 (<0.04) ng/mL C-Reactive Protein 20.60 H (< 5.00) mg/L B-Natriuretic Peptide 34 ( - 100) pg/mL Total Protein 7.4 (6.4-8.9) g/dL Albumin 3.7 (3.2-5.2) g/dL Globulin 3.7 (2-4) g/dL Albumin/Globulin Ratio 1.0 (1-3) Procalcitonin (<0.6) ng/mL Influenza A (Rapid) (Negative) Influenza B (Rapid) (Negative) 06/27/17 06/27/17 06/27/17 Range/Units 14:15 14:15 14:15 WBC 16.6 H (3.5-10.8) 10^3/ul RBC 3.96 L (4.0-5.4) 10^6/ul Hgb 10.9 L (14.0-18.0) g/dl Hct 34 L (42-52) % MCV 87 (80-94) fL MCH 27 (27-31) pg MCHC 32 (31-36) g/dl RDW 15 (10.5-15) % Plt Count 171 (150-450) 10^3/ul MPV 7.8 (7.4-10.4) um3 Neut % (Auto) 88.8 H (38-83) % Lymph % (Auto) 6.1 L (25-47) % [place] % (Auto) 4.1 (0-7) % Eos % (Auto) 0.7 (0-6) % Baso % (Auto) 0.3 (0-2) % Absolute Neuts (auto) 14.7 H (1.5-7.7) 10^3/ul Absolute Lymphs (auto) 1.0 (1.0-4.8) 10^3/ul Absolute Monos (auto) 0.7 (0-0.8) 10^3/ul Absolute Eos (auto) 0.1 (0-0.6) 10^3/ul Absolute Basos (auto) 0 (0-0.2) 10^3/ul Absolute Nucleated RBC 0 10^3/ul Nucleated RBC % 0 INR (Anticoag Therapy) (0.77-1.02) APTT (26.0-36.3) seconds Sodium (139-145) mmol/L Potassium (3.5-5.0) mmol/L Chloride (101-111) mmol/L Carbon Dioxide (22-32) mmol/L Anion Gap (2-11) mmol/L BUN (6-24) mg/dL Creatinine (0.67-1.17) mg/dL Est GFR ( Amer) (>60) Est GFR (Non-Af Amer) (>60) BUN/Creatinine Ratio (8-20) Glucose (70-100) mg/dL Lactic Acid 1.5 (0.5-2.0) mmol/L Calcium (8.6-10.3) mg/dL Total Bilirubin (0.2-1.0) mg/dL AST (13-39) U/L ALT (7-52) U/L Alkaline Phosphatase (34-104) U/L Troponin I (<0.04) ng/mL C-Reactive Protein (< 5.00) mg/L B-Natriuretic Peptide ( - 100) pg/mL Total Protein (6.4-8.9) g/dL Albumin (3.2-5.2) g/dL Globulin (2-4) g/dL Albumin/Globulin Ratio (1-3) Procalcitonin 0.5 (<0.6) ng/mL Influenza A (Rapid) (Negative) Influenza B (Rapid) (Negative) 06/27/17 Range/Units 15:28 WBC (3.5-10.8) 10^3/ul RBC (4.0-5.4) 10^6/ul Hgb (14.0-18.0) g/dl Hct (42-52) % MCV (80-94) fL MCH (27-31) pg MCHC (31-36) g/dl RDW (10.5-15) % Plt Count (150-450) 10^3/ul MPV (7.4-10.4) um3 Neut % (Auto) (38-83) % Lymph % (Auto) (25-47) % [place] % (Auto) (0-7) % Eos % (Auto) (0-6) % Baso % (Auto) (0-2) % Absolute Neuts (auto) (1.5-7.7) 10^3/ul Absolute Lymphs (auto) (1.0-4.8) 10^3/ul Absolute Monos (auto) (0-0.8) 10^3/ul Absolute Eos (auto) (0-0.6) 10^3/ul Absolute Basos (auto) (0-0.2) 10^3/ul Absolute Nucleated RBC 10^3/ul Nucleated RBC % INR (Anticoag Therapy) (0.77-1.02) APTT (26.0-36.3) seconds Sodium (139-145) mmol/L Potassium (3.5-5.0) mmol/L Chloride (101-111) mmol/L Carbon Dioxide (22-32) mmol/L Anion Gap (2-11) mmol/L BUN (6-24) mg/dL Creatinine (0.67-1.17) mg/dL Est GFR ( Amer) (>60) Est GFR (Non-Af Amer) (>60) BUN/Creatinine Ratio (8-20) Glucose (70-100) mg/dL Lactic Acid (0.5-2.0) mmol/L Calcium (8.6-10.3) mg/dL Total Bilirubin (0.2-1.0) mg/dL AST (13-39) U/L ALT (7-52) U/L Alkaline Phosphatase (34-104) U/L Troponin I (<0.04) ng/mL C-Reactive Protein (< 5.00) mg/L B-Natriuretic Peptide ( - 100) pg/mL Total Protein (6.4-8.9) g/dL Albumin (3.2-5.2) g/dL Globulin (2-4) g/dL Albumin/Globulin Ratio (1-3) Procalcitonin (<0.6) ng/mL Influenza A (Rapid) Negative (Negative) Influenza B (Rapid) Negative (Negative) Result Diagrams: 06/27/17 14:15 06/27/17 14:15 Lab Statement: Any lab studies that have been ordered have been reviewed, and results considered in the medical decision making process. - Radiology CXR Xray Interpretation: Positive (See Comments) - CARDIOMEGALY WITH INTERSTITIAL EDEMA CONSISTENT WITH VASCULAR CONGESTION. Dr. Pressley has reviewed this report. Radiology Interpretation Completed By: Radiologist - EKG 14:08 EKG Interpretation: Ectopic atrial tachycardia at 122BPM, RBBB, LAFB EKG Comparison: No Significant Change - similar to prior EKG on 06/05/2017 Complex Multi-Symp Course/Dx Course Of Treatment: Medications reviewed. Allergies noted. BP noted and advised to follow up with PCP. DISCUSSED WITH DR BREAUX, ICU, WHO WILL ADMIT THE PATIENT. SEPSIS OF UNKNOWN SOURCE, PROBABLE FROM LE CELLULITIS. IV BOLUS LESS THAN 30ML/KG DUE TO CHF. - Diagnoses Provider Diagnoses: HTN (hypertension), Sepsis, CHF (congestive heart failure) - Physician Notifications Discussed Care Of Patient With: Av Breaux Time Discussed With Above Provider: 15:39 Instructed by Provider To: Admit As Inpatient - Critical Care Time Critical Care Time: 30-74 min Discharge - Sign-Out/Discharge Documenting (check all that apply): Discharge - Discharge Plan Condition: Guarded Disposition: ADMITTED TO [facility] Referrals: Zeeshan Fong MD [Primary Care Provider] - Additional Instructions: Your blood pressure was elevated during todays visit; please follow up with your primary care provider within a week for further evaluation Follow up with your primary care physician in three days. Return to the emergency department for any new or worsening symptoms. - Billing Disposition and Condition Condition: GUARDED [place] [place] The documentation as recorded by the Devaughn rosenbaum Jennifer accurately reflects the service I personally performed and the decisions made by me, Edi Pressley MD.
[2017-06-27] MEDS ORDERED: NS 0.9% 1000 ML* 1,000 ML IV SCH ×3 (16:45→20:00)
[2017-06-27] MEDS ORDERED: Ipratropium 0.5MG/2.5ML NEB* 0.5 MG/2.5 ML NEB.SOLN INH PRN (16:46)
[2017-06-27] MEDS ORDERED: Vancomycin per Pharmacy* NOTE FOLLOW UP SCH (17:00)
[2017-06-27] MEDS: Acetaminophen TAB* 325 MG PO PRN (20:08)
[2017-06-27] MEDS: Heparin VIAL(*) 5000 UNITS/ML VIAL (FIVE THOUSAND) SUBCUT SCH (20:09)
[2017-06-27] MEDS: Piperacillin/Tazobactam 13.5 GM IV 24 hour continuous infusion IVPB SCH ×2 (22:30)
[2017-06-27] MEDS ORDERED: traMADol TAB* 50 MG PO ONE (22:31)
[2017-06-28 00:31] LABS: Urine Appearance Clear; Urine Blood Negative (Negative); Urine Color Yellow; Urine Ketones Negative (Negative); Urine Protein Negative (Negative); Urine Specific Gravity 1.016 (1.010-1.030); Urine Urobilinogen Negative (Negative)
[2017-06-28] MEDS ORDERED: NS 0.9% 500 ML* 500 ML IV ONE (00:34)
[2017-06-28] MEDS: Acetaminophen TAB* 325 MG PO PRN ×4 (01:48→21:07)
[2017-06-28] MEDS ORDERED: Ondansetron INJ* 2 MG/ML VIAL IV ONE (03:09)
[2017-06-28] MEDS: Heparin VIAL(*) 5000 UNITS/ML VIAL (FIVE THOUSAND) SUBCUT SCH ×3 (05:23→21:05)
[2017-06-28] MEDS ORDERED: Levothyroxine TAB* 100 MCG TAB PO SCH (06:00)
[2017-06-28] MEDS ORDERED: Vancomycin Random Level* NOTE FOLLOW UP ONE (06:00)
[2017-06-28 06:07] LABS: Hematocrit 30 % (42-52); Hemoglobin 9.8 g/dl (14.0-18.0); Mean Corpuscular HGB Conc 33 g/dl (31-36); Mean Corpuscular Hemoglobin 28 pg (27-31); Mean Corpuscular Volume 86 fL (80-94); Mean Platelet Volume 8.1 um3 (7.4-10.4); Platelet Count 140 10^3/ul (150-450); Red Blood Count 3.47 10^6/ul (4.0-5.4); Red Cell Distribution Width 15 % (10.5-15); White Blood Count 23.9 10^3/ul (3.5-10.8)
[2017-06-28 06:24] LABS: EGFR Non-African American 40.5 (>60)
[2017-06-28] MEDS ORDERED: Ondansetron INJ* 2 MG/ML VIAL IV PRN (08:28)
[2017-06-28] MEDS ORDERED: Metoprolol Succinate XL TAB* 50 MG PO SCH (09:00)
--- NOTE | 2017-06-28 10:12 | PN ---
Subjective Date of Service: 06/28/17 Interval History: Pt is feeling ok today. He is tired. He has some pain at the crease of his ankle. His states his R LE chronically weeps and has a foul smell. She states it currently appears to be at baseline. He denies any SOB. Objective Active Medications: Acetaminophen (Tylenol Tab*) 650 mg PO Q4H PRN PRN Reason: PAIN Last Admin: 06/28/17 08:43 Dose: 650 mg Heparin Sodium (Porcine) (Heparin Vial(*)) 5,000 units SUBCUT Q8HR [facility] Last Admin: 06/28/17 05:23 Dose: 5,000 units Piperacillin Sod/Tazobactam (Sod 13.5 gm/ Sodium Chloride) 500 mls @ 20.833 mls /hr IVPB Q24H [facility] Last Admin: 06/27/17 22:30 Dose: 20.833 mls/hr Sodium Chloride (Ns 0.9% 1000 Ml*) 1,000 mls @ 50 mls/hr IV .PER RATE [facility] Ipratropium [place] (Atrovent 0.5 Mg Neb.Radha*) 0.5 mg INH Q6H PRN PRN Reason: SOB/WHEEZING Levothyroxine Sodium (Synthroid Tab*) 300 mcg PO SuSa@0600 [facility] Last Admin: 06/28/17 05:22 Dose: 300 mcg Levothyroxine Sodium (Synthroid Tab*) 200 mcg PO MoTuWeThFr@0600 [facility] Metoprolol Succinate (Toprol Xl Tab*) 50 mg PO DAILY [facility] Nystatin (Nystatin Top Powder*) 1 applic TOPICAL BID [facility] Ondansetron HCl (Zofran Inj*) 4 mg IV Q3H PRN PRN Reason: NAUSEA Pharmacy Consult (Vancomycin Per Pharmacy*) 1 note FOLLOW UP .VANC PER PHARMACY [facility] Vital Signs - 8 hr 06/28/17 06/28/17 06/28/17 03:41 03:44 07:49 Temperature 98.8 F 98.5 F Pulse Rate 72 73 73 Respiratory 20 22 Rate Blood Pressure 90/38 105/54 109/48 (mmHg) O2 Sat by Pulse 96 96 Oximetry Oxygen Devices in Use Now: Nasal Cannula - 3.5L-96% Appearance: Super morbidly obese elderly male sitting up in a chair, NAD Eyes: No Scleral Icterus Ears/Nose/Mouth/Throat: Mucous Membranes Moist Respiratory: Symmetrical Chest Expansion and Respiratory Effort, Clear to Auscultation, - - appeared to be in mild respiratory distress on my entering the room but this dramatically improved with just changing his position to upright from reclined Cardiovascular: - - unable to hear heart sounds, on tele pt is in NSR; marked LE edema/lymphedema of R LE>L LE Abdominal: NL Sounds; No Tenderness; No Distention Extremities: No Clubbing, Cyanosis Skin: - - focal area of lymphedema with fissures, no significant erythema Neurological: Alert and Oriented x 3 Result Diagrams: 06/28/17 05:37 06/28/17 05:37 Additional Lab and Data: Lab Results 06/27/17 06/27/17 06/27/17 Range/Units 14:15 14:15 14:15 WBC (3.5-10.8) 10^3/ul RBC (4.0-5.4) 10^6/ul Hgb (14.0-18.0) g/dl Hct (42-52) % MCV (80-94) fL MCH (27-31) pg MCHC (31-36) g/dl RDW (10.5-15) % Plt Count (150-450) 10^3/ul MPV (7.4-10.4) um3 Neut % (Auto) (38-83) % Lymph % (Auto) (25-47) % Glades % (Auto) (0-7) % Eos % (Auto) (0-6) % Baso % (Auto) (0-2) % Absolute Neuts (auto) (1.5-7.7) 10^3/ul Absolute Lymphs (auto) (1.0-4.8) 10^3/ul Absolute Monos (auto) (0-0.8) 10^3/ul Absolute Eos (auto) (0-0.6) 10^3/ul Absolute Basos (auto) (0-0.2) 10^3/ul Absolute Nucleated RBC 10^3/ul Nucleated RBC % INR (Anticoag Therapy) 1.08 H (0.77-1.02) APTT 30.0 (26.0-36.3) seconds Sodium 144 (139-145) mmol/L Potassium 4.0 (3.5-5.0) mmol/L Chloride 104 (101-111) mmol/L Carbon Dioxide 29 (22-32) mmol/L Anion Gap 11 (2-11) mmol/L BUN 33 H (6-24) mg/dL Creatinine 1.45 H (0.67-1.17) mg/dL Est GFR ( Amer) 60.5 (>60) Est GFR (Non-Af Amer) 47.1 (>60) BUN/Creatinine Ratio 22.8 H (8-20) Glucose 110 H (70-100) mg/dL Lactic Acid (0.5-2.0) mmol/L Calcium 9.3 (8.6-10.3) mg/dL Total Bilirubin 0.50 (0.2-1.0) mg/dL AST 16 (13-39) U/L ALT 11 (7-52) U/L Alkaline Phosphatase 75 (34-104) U/L Troponin I 0.01 (<0.04) ng/mL C-Reactive Protein 20.60 H (< 5.00) mg/L B-Natriuretic Peptide 34 ( - 100) pg/mL Total Protein 7.4 (6.4-8.9) g/dL Albumin 3.7 (3.2-5.2) g/dL Globulin 3.7 (2-4) g/dL Albumin/Globulin Ratio 1.0 (1-3) Procalcitonin (<0.6) ng/mL Influenza A (Rapid) (Negative) Influenza B (Rapid) (Negative) 06/27/17 06/27/17 06/27/17 Range/Units 14:15 14:15 14:15 WBC 16.6 H (3.5-10.8) 10^3/ul RBC 3.96 L (4.0-5.4) 10^6/ul Hgb 10.9 L (14.0-18.0) g/dl Hct 34 L (42-52) % MCV 87 (80-94) fL MCH 27 (27-31) pg MCHC 32 (31-36) g/dl RDW 15 (10.5-15) % Plt Count 171 (150-450) 10^3/ul MPV 7.8 (7.4-10.4) um3 Neut % (Auto) 88.8 H (38-83) % Lymph % (Auto) 6.1 L (25-47) % Glades % (Auto) 4.1 (0-7) % Eos % (Auto) 0.7 (0-6) % Baso % (Auto) 0.3 (0-2) % Absolute Neuts (auto) 14.7 H (1.5-7.7) 10^3/ul Absolute Lymphs (auto) 1.0 (1.0-4.8) 10^3/ul Absolute Monos (auto) 0.7 (0-0.8) 10^3/ul Absolute Eos (auto) 0.1 (0-0.6) 10^3/ul Absolute Basos (auto) 0 (0-0.2) 10^3/ul Absolute Nucleated RBC 0 10^3/ul Nucleated RBC % 0 INR (Anticoag Therapy) (0.77-1.02) APTT (26.0-36.3) seconds Sodium (139-145) mmol/L Potassium (3.5-5.0) mmol/L Chloride (101-111) mmol/L Carbon Dioxide (22-32) mmol/L Anion Gap (2-11) mmol/L BUN (6-24) mg/dL Creatinine (0.67-1.17) mg/dL Est GFR ( Amer) (>60) Est GFR (Non-Af Amer) (>60) BUN/Creatinine Ratio (8-20) Glucose (70-100) mg/dL Lactic Acid 1.5 (0.5-2.0) mmol/L Calcium (8.6-10.3) mg/dL Total Bilirubin (0.2-1.0) mg/dL AST (13-39) U/L ALT (7-52) U/L Alkaline Phosphatase (34-104) U/L Troponin I (<0.04) ng/mL C-Reactive Protein (< 5.00) mg/L B-Natriuretic Peptide ( - 100) pg/mL Total Protein (6.4-8.9) g/dL Albumin (3.2-5.2) g/dL Globulin (2-4) g/dL Albumin/Globulin Ratio (1-3) Procalcitonin 0.5 (<0.6) ng/mL Influenza A (Rapid) (Negative) Influenza B (Rapid) (Negative) 06/27/17 Range/Units 15:28 WBC (3.5-10.8) 10^3/ul RBC (4.0-5.4) 10^6/ul Hgb (14.0-18.0) g/dl Hct (42-52) % MCV (80-94) fL MCH (27-31) pg MCHC (31-36) g/dl RDW (10.5-15) % Plt Count (150-450) 10^3/ul MPV (7.4-10.4) um3 Neut % (Auto) (38-83) % Lymph % (Auto) (25-47) % Glades % (Auto) (0-7) % Eos % (Auto) (0-6) % Baso % (Auto) (0-2) % Absolute Neuts (auto) (1.5-7.7) 10^3/ul Absolute Lymphs (auto) (1.0-4.8) 10^3/ul Absolute Monos (auto) (0-0.8) 10^3/ul Absolute Eos (auto) (0-0.6) 10^3/ul Absolute Basos (auto) (0-0.2) 10^3/ul Absolute Nucleated RBC 10^3/ul Nucleated RBC % INR (Anticoag Therapy) (0.77-1.02) APTT (26.0-36.3) seconds Sodium (139-145) mmol/L Potassium (3.5-5.0) mmol/L Chloride (101-111) mmol/L Carbon Dioxide (22-32) mmol/L Anion Gap (2-11) mmol/L BUN (6-24) mg/dL Creatinine (0.67-1.17) mg/dL Est GFR ( Amer) (>60) Est GFR (Non-Af Amer) (>60) BUN/Creatinine Ratio (8-20) Glucose (70-100) mg/dL Lactic Acid (0.5-2.0) mmol/L Calcium (8.6-10.3) mg/dL Total Bilirubin (0.2-1.0) mg/dL AST (13-39) U/L ALT (7-52) U/L Alkaline Phosphatase (34-104) U/L Troponin I (<0.04) ng/mL C-Reactive Protein (< 5.00) mg/L B-Natriuretic Peptide ( - 100) pg/mL Total Protein (6.4-8.9) g/dL Albumin (3.2-5.2) g/dL Globulin (2-4) g/dL Albumin/Globulin Ratio (1-3) Procalcitonin (<0.6) ng/mL Influenza A (Rapid) Negative (Negative) Influenza B (Rapid) Negative (Negative) Assess/Plan/Problems-Billing Mr Benjamin is a 76 yo M who has a h/o COPD, JULIANE (CPAP), CAD, chronic diastolic dysfunction, HTN, HLD, LE lymphedema and hypothyroidism who presented to the ER with sudden weakness and high fever and was found to be in severe sepsis secondary to possibly a skin source. - Patient Problems (1) Septic shock Current Visit: Yes Status: Acute Code(s): A41.9 - SEPSIS, UNSPECIFIED ORGANISM; R65.21 - SEVERE SEPSIS WITH SEPTIC SHOCK SNOMED Code(s): 93293418 Comment: The patient is in septic shock by sepsis 2 criteria of infection, fever, leukocytosis, tachypnea and persistent hypotension and by sepsis 3 criteria with thrombocytopenia and hypotension secondary to likley infection of the R LE; now identified to have gram negative bacteremia. Additionally the patient has acute hypoxic respiratory failure. Will continue IVF hydration-pt is not receiving the IVF at 30ml/hr due to history of diastolic CHF. Will continue NS at 125ml/hr (increase from what was ordered) to see if it impacts his BP. Will continue broad spectrum Abx for now. (2) Gram-negative bacteremia Current Visit: Yes Status: Acute Code(s): R78.81 - BACTEREMIA SNOMED Code( s): 125698079449 Comment: Likely source is the R LE. There is a very foul smell and small amount of purulent material noted on the focal area of lymphedema. Will obtain ultrasound of the R LE to eval for underlying abscess. The gram negative bacteremia is likely why the patient so suddenly became ill. Continue zosyn. ID consult tomorrow. (3) Diastolic CHF Current Visit: Yes Status: Chronic Code(s): I50.30 - UNSPECIFIED DIASTOLIC ( CONGESTIVE) HEART FAILURE SNOMED Code(s): 944992980 Comment: Pt does not appear to be intravascularly overloaded. Will cautiously increase NS rate to 125ml/hr. Hold on any diuretic at this time. (4) HTN (hypertension) Current Visit: Yes Status: Chronic Code(s): I10 - ESSENTIAL (PRIMARY) HYPERTENSION SNOMED Code(s): 53239212 Comment: BP is soft at this time. Amlodipine held and metoprolol has strict hold parameters. (5) COPD (chronic obstructive pulmonary disease) Current Visit: Yes Status: Chronic Code(s): J44.9 - CHRONIC OBSTRUCTIVE PULMONARY DISEASE, UNSPECIFIED SNOMED Code(s): 52025248 Comment: No signs of exacerbation. Continue atroven and albuterol nebs as needed. The patient has acute hypoxic respiratory failure and is currently requiring 3.5L O2. Will try to start to wean down O2. (6) CKD (chronic kidney disease) Current Visit: Yes Status: Chronic Code(s): N18.9 - CHRONIC KIDNEY DISEASE, UNSPECIFIED SNOMED Code(s): 580395419 Comment: Creatinine up today from yesterday but relatively close to baseline. Continue to follow. (7) CAD (coronary artery disease) Current Visit: Yes Status: Chronic Code(s): I25.10 - ATHSCL HEART DISEASE OF [place] CORONARY ARTERY W/O ANG PCTRS SNOMED Code(s): 16143239 Comment: No cardiac complaints. Will continue metoprolol (currently held secondary to hypotension), aspirin and statin. (8) JULIANE (obstructive sleep apnea) Current Visit: Yes Status: Chronic Code(s): G47.33 - OBSTRUCTIVE SLEEP APNEA (ADULT) (PEDIATRIC) SNOMED Code(s): 12985287 Comment: Continue home CPAP settings. (9) Hypothyroidism Current Visit: Yes Status: Chronic Code(s): E03.9 - HYPOTHYROIDISM, UNSPECIFIED SNOMED Code(s): 79073567 Comment: Continue synthroid at home dose. (10) HLD (hyperlipidemia) Current Visit: Yes Status: Chronic Code(s): E78.5 - HYPERLIPIDEMIA, UNSPECIFIED SNOMED Code(s): 30328308 Comment: Resume statin. (11) DVT prophylaxis Current Visit: Yes Status: Acute Code(s): [id number] - SNOMED Code(s): 824350461 Comment: SQ heparin (12) Full code status Current Visit: Yes Status: Acute Code(s): Z78.9 - OTHER SPECIFIED HEALTH STATUS SNOMED Code(s): 276166043
[2017-06-28] MEDS ORDERED: NS 0.9% 1000 ML* 1,000 ML IV SCH (10:21)
[2017-06-28] MEDS ORDERED: Albuterol 2.5 MG/3 ML NEB.SOL* (0.083%) INH PRN (10:33)
--- NOTE | 2017-06-28 10:46 | RAD ---
Indication: Evaluate for CHF. 2 views of the chest demonstrates cardiomegaly. No pleural fluid, pneumonia or pneumothorax is noted. No alveolar consolidation is noted. When compared to previous exam of June 27, 2017 no significant change is noted. IMPRESSION: Cardiomegaly. No alveolar consolidation is noted. Postoperative changes are noted.
[2017-06-28] MEDS: Nystatin TOP POWDER* 15 GM BTL TOPICAL SCH ×2 (13:48→21:10)
--- NOTE | 2017-06-28 14:36 | RAD ---
Indication: Evaluate for intra-abdominal infection. CT of the abdomen and pelvis was performed after oral contrast administration. No IV contrast was given. Coronal and sagittal reconstructed images were obtained. Lung bases demonstrate pleural thickening. Right basilar atelectasis is noted. The heart is enlarged without pericardial effusion. Liver is normal in size. No focal lesions or intrahepatic ductal dilatation is noted. The gallbladder is distended with probable gallstones in the dependent portion. No pericholecystic fluid or wall thickening is identified. The pancreas demonstrates no mass or pancreatic ductal dilatation. The spleen is normal in size. No adrenal lesions are noted. The kidneys demonstrate no hydronephrosis in either kidney. No retroperitoneal lymphadenopathy is noted. Aorta and inferior vena cava show no aneurysmal dilatation although atherosclerotic aorta is noted. No dilated loops of bowel are noted. The colon is filled with stool. The urinary bladder is otherwise unremarkable. No dilated bowel are noted. The colon is filled with stool. Urinary bladder is distended. Prostate is mildly enlarged with calcifications. No pelvic adenopathy is noted. Small bowel demonstrates no abnormal dilatation. IMPRESSION: Enlarged prostate. Probable atelectasis in the right lower lobe. Cholelithiasis in a distended gallbladder without evidence of pericholecystic fluid. No other masses or fluid collections are noted.
[2017-06-28] MEDS: Vancomycin(*) 1,250 MG in NS 0.9% 250 ML* 250 ML IVPB SCH (14:46)
--- NOTE | 2017-06-28 20:18 | RAD ---
Indication: Right leg swelling. Real-time sonography of the right leg was performed. Diffuse subcutaneous edema is noted. No drainable fluid collections are identified. IMPRESSION: Diffuse edema without evidence of drainable collection.
[2017-06-29] MEDS: Piperacillin/Tazobactam 13.5 GM IV 24 hour continuous infusion IVPB SCH ×4 (00:33→22:51)
[2017-06-29] MEDS: Vancomycin(*) 1,250 MG in NS 0.9% 250 ML* 250 ML IVPB SCH (01:01)
[2017-06-29] MEDS: Heparin VIAL(*) 5000 UNITS/ML VIAL (FIVE THOUSAND) SUBCUT SCH ×3 (06:06→22:54)
[2017-06-29] MEDS: Levothyroxine TAB* 100 MCG TAB PO SCH (06:06)
[2017-06-29 06:37] LABS: EGFR Non-African American 47.4 (>60)
[2017-06-29 06:51] LABS: Hematocrit 30 % (42-52); Hemoglobin 9.8 g/dl (14.0-18.0); Mean Corpuscular HGB Conc 32 g/dl (31-36); Mean Corpuscular Hemoglobin 28 pg (27-31); Mean Corpuscular Volume 86 fL (80-94); Mean Platelet Volume 8.2 um3 (7.4-10.4); Platelet Count 131 10^3/ul (150-450); Red Blood Count 3.52 10^6/ul (4.0-5.4); Red Cell Distribution Width 16 % (10.5-15); White Blood Count 14.7 10^3/ul (3.5-10.8)
--- NOTE | 2017-06-29 09:08 | PN ---
Subjective Date of Service: 06/29/17 Interval History: Pt is feeling better today. He had an episode of rigors yesterday afternoon but none since. He denies any pain. He does state that he feels SOB when he leans back and has his legs up. He states he wheezes in that position. He does not use O2 at home. Objective Active Medications: Acetaminophen (Tylenol Tab*) 650 mg PO Q4H PRN PRN Reason: PAIN Last Admin: 06/28/17 21:07 Dose: 650 mg Albuterol (Ventolin 2.5 Mg/3 Ml Neb.Radha*) 2.5 mg INH Q2H PRN PRN Reason: SOB/WHEEZING Last Admin: 06/28/17 16:10 Dose: 2.5 mg Atorvastatin Calcium (Lipitor*) 80 mg PO DAILY [facility] Heparin Sodium (Porcine) (Heparin Vial(*)) 5,000 units SUBCUT Q8HR [facility] Last Admin: 06/29/17 06:06 Dose: 5,000 units Piperacillin Sod/Tazobactam (Sod 13.5 gm/ Sodium Chloride) 500 mls @ 20.833 mls /hr IVPB Q24H [facility] Last Admin: 06/29/17 00:33 Dose: 20.833 mls/hr Vancomycin HCl 1,250 mg/ (Sodium Chloride) 250 mls @ 166.667 mls/hr IVPB Q12H [facility] Last Admin: 06/29/17 01:01 Dose: 166.667 mls/hr Ipratropium [place] (Atrovent 0.5 Mg Neb.Radha*) 0.5 mg INH Q6H PRN PRN Reason: SOB/WHEEZING Levothyroxine Sodium (Synthroid Tab*) 300 mcg PO SuSa@0600 [facility] Last Admin: 06/28/17 05:22 Dose: 300 mcg Levothyroxine Sodium (Synthroid Tab*) 200 mcg PO MoTuWeThFr@0600 [facility] Last Admin: 06/29/17 06:06 Dose: 200 mcg Metoprolol Succinate (Toprol Xl Tab*) 50 mg PO DAILY [facility] Nystatin (Nystatin Top Powder*) 1 applic TOPICAL BID [facility] Last Admin: 06/28/17 21:10 Dose: 1 applic Ondansetron HCl (Zofran Inj*) 4 mg IV Q3H PRN PRN Reason: NAUSEA Pharmacy Consult (Vancomycin Per Pharmacy*) 1 note FOLLOW UP .VANC PER PHARMACY [facility] Pharmacy Profile Note (Vancomycin Trough Check) 1 note FOLLOW UP 1230 ONE Stop: 06/29/17 12:31 Vital Signs - 8 hr 06/29/17 06/29/17 06/29/17 01:54 03:50 07:29 Temperature 97.9 F 98.8 F Pulse Rate 81 73 75 Respiratory 16 20 24 Rate Blood Pressure 152/42 136/60 (mmHg) O2 Sat by Pulse 96 92 97 Oximetry Oxygen Devices in Use Now: Nasal Cannula - 3.5L-97% Appearance: Morbidly obese elderly male sitting up in a chair, NAD Eyes: No Scleral Icterus Ears/Nose/Mouth/Throat: Mucous Membranes Moist Respiratory: Symmetrical Chest Expansion and Respiratory Effort, Clear to Auscultation Cardiovascular: NL Sounds; No Murmurs; No JVD, RRR, - - significant LE edema B/L Abdominal: NL Sounds; No Tenderness; No Distention Extremities: No Clubbing, Cyanosis Skin: - - focal area (size of a large grapefruit) on lateral aspect of R lower leg fissured, scant purulent drainage with copious serous drainage on ABD pads Neurological: Alert and Oriented x 3 Result Diagrams: 06/29/17 05:44 06/29/17 05:44 Additional Lab and Data: Lab Results 06/27/17 06/27/17 06/27/17 Range/Units 14:15 14:15 14:15 WBC (3.5-10.8) 10^3/ul RBC (4.0-5.4) 10^6/ul Hgb (14.0-18.0) g/dl Hct (42-52) % MCV (80-94) fL MCH (27-31) pg MCHC (31-36) g/dl RDW (10.5-15) % Plt Count (150-450) 10^3/ul MPV (7.4-10.4) um3 Neut % (Auto) (38-83) % Lymph % (Auto) (25-47) % Hill % (Auto) (0-7) % Eos % (Auto) (0-6) % Baso % (Auto) (0-2) % Absolute Neuts (auto) (1.5-7.7) 10^3/ul Absolute Lymphs (auto) (1.0-4.8) 10^3/ul Absolute Monos (auto) (0-0.8) 10^3/ul Absolute Eos (auto) (0-0.6) 10^3/ul Absolute Basos (auto) (0-0.2) 10^3/ul Absolute Nucleated RBC 10^3/ul Nucleated RBC % INR (Anticoag Therapy) 1.08 H (0.77-1.02) APTT 30.0 (26.0-36.3) seconds Sodium 144 (139-145) mmol/L Potassium 4.0 (3.5-5.0) mmol/L Chloride 104 (101-111) mmol/L Carbon Dioxide 29 (22-32) mmol/L Anion Gap 11 (2-11) mmol/L BUN 33 H (6-24) mg/dL Creatinine 1.45 H (0.67-1.17) mg/dL Est GFR ( Amer) 60.5 (>60) Est GFR (Non-Af Amer) 47.1 (>60) BUN/Creatinine Ratio 22.8 H (8-20) Glucose 110 H (70-100) mg/dL Lactic Acid (0.5-2.0) mmol/L Calcium 9.3 (8.6-10.3) mg/dL Total Bilirubin 0.50 (0.2-1.0) mg/dL AST 16 (13-39) U/L ALT 11 (7-52) U/L Alkaline Phosphatase 75 (34-104) U/L Troponin I 0.01 (<0.04) ng/mL C-Reactive Protein 20.60 H (< 5.00) mg/L B-Natriuretic Peptide 34 ( - 100) pg/mL Total Protein 7.4 (6.4-8.9) g/dL Albumin 3.7 (3.2-5.2) g/dL Globulin 3.7 (2-4) g/dL Albumin/Globulin Ratio 1.0 (1-3) Procalcitonin (<0.6) ng/mL Influenza A (Rapid) (Negative) Influenza B (Rapid) (Negative) 06/27/17 06/27/17 06/27/17 Range/Units 14:15 14:15 14:15 WBC 16.6 H (3.5-10.8) 10^3/ul RBC 3.96 L (4.0-5.4) 10^6/ul Hgb 10.9 L (14.0-18.0) g/dl Hct 34 L (42-52) % MCV 87 (80-94) fL MCH 27 (27-31) pg MCHC 32 (31-36) g/dl RDW 15 (10.5-15) % Plt Count 171 (150-450) 10^3/ul MPV 7.8 (7.4-10.4) um3 Neut % (Auto) 88.8 H (38-83) % Lymph % (Auto) 6.1 L (25-47) % Hill % (Auto) 4.1 (0-7) % Eos % (Auto) 0.7 (0-6) % Baso % (Auto) 0.3 (0-2) % Absolute Neuts (auto) 14.7 H (1.5-7.7) 10^3/ul Absolute Lymphs (auto) 1.0 (1.0-4.8) 10^3/ul Absolute Monos (auto) 0.7 (0-0.8) 10^3/ul Absolute Eos (auto) 0.1 (0-0.6) 10^3/ul Absolute Basos (auto) 0 (0-0.2) 10^3/ul Absolute Nucleated RBC 0 10^3/ul Nucleated RBC % 0 INR (Anticoag Therapy) (0.77-1.02) APTT (26.0-36.3) seconds Sodium (139-145) mmol/L Potassium (3.5-5.0) mmol/L Chloride (101-111) mmol/L Carbon Dioxide (22-32) mmol/L Anion Gap (2-11) mmol/L BUN (6-24) mg/dL Creatinine (0.67-1.17) mg/dL Est GFR ( Amer) (>60) Est GFR (Non-Af Amer) (>60) BUN/Creatinine Ratio (8-20) Glucose (70-100) mg/dL Lactic Acid 1.5 (0.5-2.0) mmol/L Calcium (8.6-10.3) mg/dL Total Bilirubin (0.2-1.0) mg/dL AST (13-39) U/L ALT (7-52) U/L Alkaline Phosphatase (34-104) U/L Troponin I (<0.04) ng/mL C-Reactive Protein (< 5.00) mg/L B-Natriuretic Peptide ( - 100) pg/mL Total Protein (6.4-8.9) g/dL Albumin (3.2-5.2) g/dL Globulin (2-4) g/dL Albumin/Globulin Ratio (1-3) Procalcitonin 0.5 (<0.6) ng/mL Influenza A (Rapid) (Negative) Influenza B (Rapid) (Negative) 06/27/17 Range/Units 15:28 WBC (3.5-10.8) 10^3/ul RBC (4.0-5.4) 10^6/ul Hgb (14.0-18.0) g/dl Hct (42-52) % MCV (80-94) fL MCH (27-31) pg MCHC (31-36) g/dl RDW (10.5-15) % Plt Count (150-450) 10^3/ul MPV (7.4-10.4) um3 Neut % (Auto) (38-83) % Lymph % (Auto) (25-47) % Hill % (Auto) (0-7) % Eos % (Auto) (0-6) % Baso % (Auto) (0-2) % Absolute Neuts (auto) (1.5-7.7) 10^3/ul Absolute Lymphs (auto) (1.0-4.8) 10^3/ul Absolute Monos (auto) (0-0.8) 10^3/ul Absolute Eos (auto) (0-0.6) 10^3/ul Absolute Basos (auto) (0-0.2) 10^3/ul Absolute Nucleated RBC 10^3/ul Nucleated RBC % INR (Anticoag Therapy) (0.77-1.02) APTT (26.0-36.3) seconds Sodium (139-145) mmol/L Potassium (3.5-5.0) mmol/L Chloride (101-111) mmol/L Carbon Dioxide (22-32) mmol/L Anion Gap (2-11) mmol/L BUN (6-24) mg/dL Creatinine (0.67-1.17) mg/dL Est GFR ( Amer) (>60) Est GFR (Non-Af Amer) (>60) BUN/Creatinine Ratio (8-20) Glucose (70-100) mg/dL Lactic Acid (0.5-2.0) mmol/L Calcium (8.6-10.3) mg/dL Total Bilirubin (0.2-1.0) mg/dL AST (13-39) U/L ALT (7-52) U/L Alkaline Phosphatase (34-104) U/L Troponin I (<0.04) ng/mL C-Reactive Protein (< 5.00) mg/L B-Natriuretic Peptide ( - 100) pg/mL Total Protein (6.4-8.9) g/dL Albumin (3.2-5.2) g/dL Globulin (2-4) g/dL Albumin/Globulin Ratio (1-3) Procalcitonin (<0.6) ng/mL Influenza A (Rapid) Negative (Negative) Influenza B (Rapid) Negative (Negative) Assess/Plan/Problems-Billing Mr Benjamin is a 76 yo M who has a h/o COPD, JULIANE (CPAP), CAD, chronic diastolic dysfunction, HTN, HLD, LE lymphedema and hypothyroidism who presented to the ER with sudden weakness and high fever and was found to be in severe sepsis secondary to possibly a skin source. - Patient Problems (1) Septic shock Current Visit: Yes Status: Acute Code(s): A41.9 - SEPSIS, UNSPECIFIED ORGANISM; R65.21 - SEVERE SEPSIS WITH SEPTIC SHOCK SNOMED Code(s): 81521826 Comment: Septic shock has resolved. He never needed pressors but did require more IVF. WBC count trending down. Thrombocytopenia slightly worse today. Found to have pseudomonas in the blood. I suspect from the R LE especially given its foul smell. Stop IVF today and monitor VS. ID consult today. (2) Gram-negative bacteremia Current Visit: Yes Status: Acute Code(s): R78.81 - BACTEREMIA SNOMED Code( s): 474521611732 Comment: Likely source is the R LE. Blood cultures are growing pseudomonas mendocina. ID consult today but for now continue zosyn. Stop vanco. Duration of ABx therapy per Dr. Lozano. No evidence of abscess of the R LE. (3) Diastolic CHF Current Visit: Yes Status: Chronic Code(s): I50.30 - UNSPECIFIED DIASTOLIC ( CONGESTIVE) HEART FAILURE SNOMED Code(s): 141365887 Comment: No signs of significant overload at this time. D/C IVF but hold diuretic. Follow exam/VS. (4) HTN (hypertension) Current Visit: Yes Status: Chronic Code(s): I10 - ESSENTIAL (PRIMARY) HYPERTENSION SNOMED Code(s): 00645894 Comment: BP improved. Continue metoprolol with hold parameters but continue to hold amlodipine. (5) COPD (chronic obstructive pulmonary disease) Current Visit: Yes Status: Chronic Code(s): J44.9 - CHRONIC OBSTRUCTIVE PULMONARY DISEASE, UNSPECIFIED SNOMED Code(s): 50974266 Comment: No signs of exacerbation. Continue atrovent and albuterol nebs as needed. The patient has acute hypoxic respiratory failure and is currently requiring 3.5L O2. I suspect the acute hypoxic respiratory failure is secondary to sepsis present on admission. Start to wean down O2 today. (6) CKD (chronic kidney disease) Current Visit: Yes Status: Chronic Code(s): N18.9 - CHRONIC KIDNEY DISEASE, UNSPECIFIED SNOMED Code(s): 607053582 Comment: Creatinine stable. Continue to follow. (7) CAD (coronary artery disease) Current Visit: Yes Status: Chronic Code(s): I25.10 - ATHSCL HEART DISEASE OF [place] CORONARY ARTERY W/O ANG PCTRS SNOMED Code(s): 70644042 Comment: No cardiac complaints. Will continue metoprolol, aspirin and statin. (8) JULIANE (obstructive sleep apnea) Current Visit: Yes Status: Chronic Code(s): G47.33 - OBSTRUCTIVE SLEEP APNEA (ADULT) (PEDIATRIC) SNOMED Code(s): 93494186 Comment: Continue home CPAP settings. (9) Hypothyroidism Current Visit: Yes Status: Chronic Code(s): E03.9 - HYPOTHYROIDISM, UNSPECIFIED SNOMED Code(s): 08532560 Comment: Continue synthroid at home dose. (10) HLD (hyperlipidemia) Current Visit: Yes Status: Chronic Code(s): E78.5 - HYPERLIPIDEMIA, UNSPECIFIED SNOMED Code(s): 71324413 Comment: Continue statin. (11) DVT prophylaxis Current Visit: Yes Status: Acute Code(s): [id number] - SNOMED Code(s): 934998746 Comment: SQ heparin (12) Full code status Current Visit: Yes Status: Acute Code(s): Z78.9 - OTHER SPECIFIED HEALTH STATUS SNOMED Code(s): 103376074
[2017-06-29] MEDS: Atorvastatin* 80 MG TAB PO SCH (09:21)
[2017-06-29] MEDS: Metoprolol Succinate XL TAB* 50 MG PO SCH (09:22)
[2017-06-29] MEDS: Nystatin TOP POWDER* 15 GM BTL TOPICAL SCH ×2 (09:23→22:56)
[2017-06-29] MEDS ORDERED: Vancomycin Trough Check NOTE FOLLOW UP ONE (12:30)
[2017-06-29] MEDS: Acetaminophen TAB* 325 MG PO PRN ×2 (13:13→22:53)
--- NOTE | 2017-06-29 13:17 | CONS ---
CONSULTATION REPORT: DATE OF CONSULT: 06/29/17 REQUESTING PHYSICIAN: Dr. Lawson. CONSULTING SERVICE: Infectious Disease. REASON FOR CONSULTATION: Pseudomonas bacteremia. IMPRESSION: 1. Pseudomonas tyronea, 2/4 blood culture bottles. His urinalysis was negative. He has no abdominal pain. He had a CT abdomen and pelvis to look for an intraabdominal infection. It showed a large prostate, cholelithiasis, and distended gallbladder. No pericholecystic fluid and he has no right upper quadrant tenderness to palpation. He does have right lower extremity wound at distal leg in the setting of lymphedema, which has a foul odor and seropurulent drainage, which I think is the source. 2. Morbid obesity. 3. Chronic lower extremity lymphedema and recurrent cellulitis. RECOMMENDATIONS: Continue continuous infusion of Zosyn. We will wait susceptibility results of Pseudomonas isolate. Continue wound care to the right lower extremity. HISTORY OF PRESENT ILLNESS: This is a 76-year-old male with obesity and recurrent right leg cellulitis and right lower extremity lymphedema, admitted with fever and rigors. They developed over the weekend. He had been doing fine. His was doing wound care to the right leg. It was getting a little more swollen, not more red, but then they noticed more foul odor, and then a couple of hours later, his systemic symptoms developed, so she called the rescue squad. They brought him in on the . White count was 17,000 up to 24 ,000 the next morning. He was on vancomycin and Zosyn initially. He was hypotensive and in the ICU. When the cultures came back Pseudomonas alissaocina, the vancomycin was stopped yesterday. He was just continued on Zosyn alone. Last fever documented was yesterday afternoon. He did have a rigor overnight. He ate some breakfast and has not eaten anything for two days until today. He had had a CT abdomen and pelvis with findings as above. He had an ultrasound of the right leg of the soft tissues, which showed no abscess, but there was diffuse edema. Chest x-ray showed cardiomegaly. No consolidation. His last right leg infection was about a month ago. PAST MEDICAL HISTORY: 1. Morbid obesity. 2. Chronic kidney disease. 3. COPD. 4. Obstructive sleep apnea, on CPAP. 5. Coronary artery disease, status post CABG. 6. Chronic diastolic dysfunction. 7. Chronic lower extremity lymphedema. 8. History of recurrent infection of lower extremity. 9. Hypertension. 10. Hyperlipidemia. 11. Hypothyroidism. 12. Spinal stenosis, status post lumbar decompression. MEDICATIONS: 1. Tylenol. 2. Albuterol. 3. Lipitor. 4. Heparin subcutaneous injection. 5. Ipratropium as needed. 6. Levothyroxine. 7. Metoprolol. 8. Nystatin powder. 9. Zofran. 10. Zosyn 3.375 g IV by continuous infusion. ALLERGIES: MORPHINE. FAMILY HISTORY: No recurrent infections. SOCIAL HISTORY: Lives with his , up the [place]. No travel and no sick contacts. REVIEW OF SYSTEMS: A 14-point review of systems was all negative except as noted above. PHYSICAL EXAM: Vital Signs: Temperature 37, heart rate 70, respiratory rate 20 , blood pressure 136/60, oxygen saturation 97% on 3 L. In general, he is awake , not in distress. Neurologic: He is oriented x3. Follows all commands. HEENT: There is no conjunctival hemorrhage. Oropharynx is without lesions. Neck is supple without mass. Lymph Nodes: There is no inguinal, axillary or epitrochlear lymphadenopathy. Heart: Regular rate and rhythm without murmurs, rubs or gallops. Lungs are clear to auscultation bilaterally. Abdomen is nontender, nondistended. There are bowel sounds present. There is no right upper quadrant tenderness. Skin: There are no rashes or splinter hemorrhages. There is right lower extremity nonpitting edema from the knee through the foot and in the distal lower leg there is an area of superficial opening with serous drainage. There is a foul odor. DIAGNOSTIC STUDIES/LAB DATA: White blood cell count 14, creatinine 1.4, procalcitonin 0.5, CRP 21. Please see impression and recommendations as outlined above, which I have discussed with Dr. Lawson. Thank you for asking me to see Mr. Benjamin in consultation. [id number]/[facility] #: [id number] NATHALY
[2017-06-30] MEDS: Heparin VIAL(*) 5000 UNITS/ML VIAL (FIVE THOUSAND) SUBCUT SCH ×3 (05:02→21:17)
[2017-06-30] MEDS: Levothyroxine TAB* 100 MCG TAB PO SCH (05:02)
[2017-06-30] MEDS: Acetaminophen TAB* 325 MG PO PRN ×3 (05:02→19:37)
[2017-06-30 05:54] LABS: EGFR Non-African American 51.1 (>60)
[2017-06-30 07:12] LABS: Hematocrit 29 % (42-52); Hemoglobin 9.4 g/dl (14.0-18.0); Mean Corpuscular HGB Conc 32 g/dl (31-36); Mean Corpuscular Hemoglobin 28 pg (27-31); Mean Corpuscular Volume 87 fL (80-94); Mean Platelet Volume 7.9 um3 (7.4-10.4); Platelet Count 139 10^3/ul (150-450); Red Blood Count 3.34 10^6/ul (4.0-5.4); Red Cell Distribution Width 15 % (10.5-15); White Blood Count 9.4 10^3/ul (3.5-10.8)
[2017-06-30] MEDS: Metoprolol Succinate XL TAB* 50 MG PO SCH (08:10)
[2017-06-30] MEDS: Atorvastatin* 80 MG TAB PO SCH (08:10)
[2017-06-30] MEDS: Nystatin TOP POWDER* 15 GM BTL TOPICAL SCH ×2 (08:11→21:17)
--- NOTE | 2017-06-30 14:32 | PN ---
Progress Note - Progress Note Date of Service: 06/30/17 SOAP: Subjective: CC: wound infection HPI: 76 year old man with bilateral lower extremity lymphedema and right leg wound with sepsis. Still tired, rigors and fever are resolved. Appetite is decreased and 3 loose stools today so far. Objective: Vital Signs Temp 36.4 C 06/30/17 11:25 Pulse 69 06/30/17 11:25 Resp 20 06/30/17 11:25 BP 153/53 06/30/17 11:25 Pulse Ox 94 06/30/17 11:25 Intake & Output 06/29/17 06/30/17 06/30/17 18:59 06:59 18:59 Intake Total 1440 440 905 Output Total 200 Balance 1440 240 905 Intake: IVPB 440 305 ABX - PIPERACILLIN 440 305 Oral 1440 0 600 Output: Urine 200 Other: Estimated Void Medium # Bowel Movements 1 1 1 Estimated Stool Amount Medium Medium Large # Voids 1 1 Gen:awake, no distress HEENT:no thrush Heart:RRR no murmur Lungs:CTA BL Abd:+BS NTND soft Skin: no rash MSK: BL LE non pitting edema; anterior lower leg wound surrounding erythema Laboratory Results - last 24 hr 06/30/17 06/30/17 06/30/17 05:00 07:02 07:02 WBC 9.4 RBC 3.34 L Hgb 9.4 L Hct 29 L MCV 87 MCH 28 MCHC 32 RDW 15 Plt Count 139 L MPV 7.9 Sodium 136 L Potassium TNP 3.8 Chloride 107 Carbon Dioxide 22 Anion Gap 7 BUN 33 H Creatinine 1.35 H Est GFR ( Amer) 65.7 Est GFR (Non-Af Amer) 51.1 BUN/Creatinine Ratio 24.4 H Glucose 97 Calcium 8.3 L Microbiology 06/27/17 14:23 Aerobic Blood Culture - Final Blood Venous Pseudomonas [place] Anaerobic Blood Culture - Preliminary No Growth Day 2 06/27/17 14:15 Aerobic Blood Culture - Final Blood Venous Pseudomonas [place] Anaerobic Blood Culture - Preliminary No Growth Day 2 Assessment: 1. Pseuodomanas bacteremia due to wound infection 2. sepsis, present on admission, resolved 3. lymphedema, BL LE 4. morbid obesity Plan: 1. nichelle lakhani, will start cefepime 1 gm IV Q12hrs and follow GI symptoms
[2017-06-30] MEDS: Cefepime 1 GM in Dextrose(*) 1 GM/50 ML BAG IV SCH (15:09)
[2017-06-30] MEDS ORDERED: Loperamide LIQ* 2 MG/10 ML UDC PO ONE (15:43)
--- NOTE | 2017-06-30 19:37 | PN ---
Hospitalist Progress Note Date of Service: 06/30/17 Pt seen and examined. Meds and labs reviewed. ROS: Denied TORO/dizziness, F/C, N/V, CP, SOB, increased cough, sputum production , abd pain, diarrhea, constipation, dysuria, myalgias, arthralgias, throat pain , and new skin lesions. The rest of the 14 point ROS are unremarkable. PHYSICAL EXAM: GEN APPEARANCE: Awake, not in acute distress HEENT: NC/AT, PERRLA, moist oral mucosa, (-) throat erythema NECK: Soft, supple, (-) cervical LAD, (-)JVD HEART: S1S2 WNL, RRR, No MRG CHEST: CTA, BL, GAE, No W/R/R ABD: Soft, ND/NT, NABS 4x Q EXT: No C/C/+2-3 SKIN: Warm to touch PSYCH: No active psychosis, hallucinations, depression, SI/HI Assess/Plan/Problems-Billing Mr Benjamin is a 76 yo M who has a h/o COPD, JULIANE (CPAP), CAD, chronic diastolic dysfunction, HTN, HLD, LE lymphedema and hypothyroidism who presented to the ER with sudden weakness and high fever and was found to be in severe sepsis secondary to possibly a skin source. - Patient Problems (1) Gram-negative bacteremia Current Visit: Yes Status: Acute Code(s): R78.81 - BACTEREMIA SNOMED Code( s): 870487427952 Comment: Likely source is the R LE. Blood cultures are growing pseudomonas mendocina. Continue Cefepime for now and narrow antiobiotic regimen in AM (2) Lymphedema Current Visit: No Status: Chronic Code(s): I89.0 - LYMPHEDEMA, NOT ELSEWHERE CLASSIFIED SNOMED Code(s): 682241420 Comment: - Severe. Cellulitis improved on 06/08. - Mass on right lateral calf may represent massive localized lymphedema - Suspect developed in setting of morbid obesity, chronic venous stasis and right vein grafting. Was seeing a specialist in [place]. - Treat underlying CHF, COPD/JULIANE likely increasing venous return (3) Obesity Current Visit: Yes Status: Acute Code(s): E66.9 - OBESITY, UNSPECIFIED SNOMED Code(s): 038082792 Comment: Advised life-style modifications Status and Disposition: If no needs identified by PT by AM
[2017-07-01] MEDS: Cefepime 1 GM in Dextrose(*) 1 GM/50 ML BAG IV SCH ×2 (03:11→15:12)
[2017-07-01] MEDS: Acetaminophen TAB* 325 MG PO PRN ×2 (04:53→20:54)
[2017-07-01] MEDS: Heparin VIAL(*) 5000 UNITS/ML VIAL (FIVE THOUSAND) SUBCUT SCH ×3 (04:54→20:51)
[2017-07-01] MEDS: Levothyroxine TAB* 100 MCG TAB PO SCH (04:54)
[2017-07-01 05:35] LABS: Hematocrit 31 % (42-52); Hemoglobin 9.9 g/dl (14.0-18.0); Mean Corpuscular HGB Conc 32 g/dl (31-36); Mean Corpuscular Hemoglobin 28 pg (27-31); Mean Corpuscular Volume 86 fL (80-94); Mean Platelet Volume 7.7 um3 (7.4-10.4); Platelet Count 149 10^3/ul (150-450); Red Blood Count 3.53 10^6/ul (4.0-5.4); Red Cell Distribution Width 15 % (10.5-15); White Blood Count 7.3 10^3/ul (3.5-10.8)
[2017-07-01 05:52] LABS: EGFR Non-African American 64.7 (>60)
[2017-07-01] MEDS: Atorvastatin* 80 MG TAB PO SCH (09:12)
[2017-07-01] MEDS: Nystatin TOP POWDER* 15 GM BTL TOPICAL SCH ×2 (09:12→20:50)
[2017-07-01] MEDS: Metoprolol Succinate XL TAB* 50 MG PO SCH (09:16)
[2017-07-01 14:49] LABS: ABS Basophils 0 10^3/ul (0-0.2); ABS Eosinophils 0.3 10^3/ul (0-0.6); ABS Lymphocytes 1.5 10^3/ul (1.0-4.8); ABS Monocytes 0.5 10^3/ul (0-0.8); ABS Neutrophils 5.5 10^3/ul (1.5-7.7); ABS Nucleated RBC 0 10^3/ul; Eosinophil % 4.3 % (0-6); Hematocrit 31 % (42-52); Hemoglobin 9.9 g/dl (14.0-18.0); Lymphocyte % 19.4 % (25-47); Mean Corpuscular HGB Conc 32 g/dl (31-36); Mean Corpuscular Hemoglobin 28 pg (27-31); Mean Corpuscular Volume 87 fL (80-94); Nucleated Red Blood Cells % 0; Platelet Count 160 10^3/ul (150-450); Red Blood Count 3.55 10^6/ul (4.0-5.4); Red Cell Distribution Width 15 % (10.5-15); White Blood Count 7.8 10^3/ul (3.5-10.8)
--- NOTE | 2017-07-01 17:37 | PN ---
Subjective Date of Service: 07/01/17 Interval History: No pain. One episode of loos stool today. Some rectal bleeding about 9 AM. Objective Active Medications: Acetaminophen (Tylenol Tab*) 650 mg PO Q4H PRN PRN Reason: PAIN Last Admin: 07/01/17 04:53 Dose: 650 mg Albuterol (Ventolin 2.5 Mg/3 Ml Neb.Radha*) 2.5 mg INH Q2H PRN PRN Reason: SOB/WHEEZING Last Admin: 06/28/17 16:10 Dose: 2.5 mg Atorvastatin Calcium (Lipitor*) 80 mg PO DAILY [facility] Last Admin: 07/01/17 09:12 Dose: 80 mg Heparin Sodium (Porcine) (Heparin Vial(*)) 5,000 units SUBCUT Q8HR [facility] Last Admin: 07/01/17 14:26 Dose: 5,000 units Ceftriaxone Sodium 2 gm/ (Sodium Chloride) 100 mls @ 200 mls/hr IVPB Q24H [facility] Ipratropium [place] (Atrovent 0.5 Mg Neb.Radha*) 0.5 mg INH Q6H PRN PRN Reason: SOB/WHEEZING Levothyroxine Sodium (Synthroid Tab*) 300 mcg PO SuSa@0600 [facility] Last Admin: 06/28/17 05:22 Dose: 300 mcg Levothyroxine Sodium (Synthroid Tab*) 200 mcg PO MoTuWeThFr@0600 [facility] Last Admin: 07/01/17 04:54 Dose: 200 mcg Metoprolol Succinate (Toprol Xl Tab*) 50 mg PO DAILY [facility] Last Admin: 07/01/17 09:16 Dose: 50 mg Nystatin (Nystatin Top Powder*) 1 applic TOPICAL BID [facility] Last Admin: 07/01/17 09:12 Dose: 1 applic Ondansetron HCl (Zofran Inj*) 4 mg IV Q3H PRN PRN Reason: NAUSEA Vital Signs - 8 hr 07/01/17 07/01/17 07/01/17 11:02 11:48 12:36 Temperature 97.6 F Pulse Rate 65 65 Respiratory 18 24 Rate Blood Pressure 173/54 154/78 (mmHg) O2 Sat by Pulse 91 97 Oximetry 07/01/17 07/01/17 13:45 15:32 Temperature 97.7 F 98.6 F Pulse Rate 62 66 Respiratory 20 24 Rate Blood Pressure 160/80 136/62 (mmHg) O2 Sat by Pulse 95 95 Oximetry Oxygen Devices in Use Now: None Appearance: Alert, in a chair. In fair spirits. Looks comfortable. Eyes: No Scleral Icterus Respiratory: Symmetrical Chest Expansion and Respiratory Effort, Clear to Auscultation, Clear to Percussion Extremities: No Clubbing, Cyanosis, - - 2-3+ edemaBL. Both legs bandaged and roxie-wrapped. Skin: No Nodules or Sclerosis Neurological: Alert and Oriented x 3, NL Sensation Result Diagrams: 07/01/17 14:25 07/01/17 05:27 Additional Lab and Data: Lab Results 06/27/17 06/27/17 06/27/17 Range/Units 14:15 14:15 14:15 WBC (3.5-10.8) 10^3/ul RBC (4.0-5.4) 10^6/ul Hgb (14.0-18.0) g/dl Hct (42-52) % MCV (80-94) fL MCH (27-31) pg MCHC (31-36) g/dl RDW (10.5-15) % Plt Count (150-450) 10^3/ul MPV (7.4-10.4) um3 Neut % (Auto) (38-83) % Lymph % (Auto) (25-47) % Elk % (Auto) (0-7) % Eos % (Auto) (0-6) % Baso % (Auto) (0-2) % Absolute Neuts (auto) (1.5-7.7) 10^3/ul Absolute Lymphs (auto) (1.0-4.8) 10^3/ul Absolute Monos (auto) (0-0.8) 10^3/ul Absolute Eos (auto) (0-0.6) 10^3/ul Absolute Basos (auto) (0-0.2) 10^3/ul Absolute Nucleated RBC 10^3/ul Nucleated RBC % INR (Anticoag Therapy) 1.08 H (0.77-1.02) APTT 30.0 (26.0-36.3) seconds Sodium 144 (139-145) mmol/L Potassium 4.0 (3.5-5.0) mmol/L Chloride 104 (101-111) mmol/L Carbon Dioxide 29 (22-32) mmol/L Anion Gap 11 (2-11) mmol/L BUN 33 H (6-24) mg/dL Creatinine 1.45 H (0.67-1.17) mg/dL Est GFR ( Amer) 60.5 (>60) Est GFR (Non-Af Amer) 47.1 (>60) BUN/Creatinine Ratio 22.8 H (8-20) Glucose 110 H (70-100) mg/dL Lactic Acid (0.5-2.0) mmol/L Calcium 9.3 (8.6-10.3) mg/dL Total Bilirubin 0.50 (0.2-1.0) mg/dL AST 16 (13-39) U/L ALT 11 (7-52) U/L Alkaline Phosphatase 75 (34-104) U/L Troponin I 0.01 (<0.04) ng/mL C-Reactive Protein 20.60 H (< 5.00) mg/L B-Natriuretic Peptide 34 ( - 100) pg/mL Total Protein 7.4 (6.4-8.9) g/dL Albumin 3.7 (3.2-5.2) g/dL Globulin 3.7 (2-4) g/dL Albumin/Globulin Ratio 1.0 (1-3) Procalcitonin (<0.6) ng/mL Influenza A (Rapid) (Negative) Influenza B (Rapid) (Negative) 06/27/17 06/27/17 06/27/17 Range/Units 14:15 14:15 14:15 WBC 16.6 H (3.5-10.8) 10^3/ul RBC 3.96 L (4.0-5.4) 10^6/ul Hgb 10.9 L (14.0-18.0) g/dl Hct 34 L (42-52) % MCV 87 (80-94) fL MCH 27 (27-31) pg MCHC 32 (31-36) g/dl RDW 15 (10.5-15) % Plt Count 171 (150-450) 10^3/ul MPV 7.8 (7.4-10.4) um3 Neut % (Auto) 88.8 H (38-83) % Lymph % (Auto) 6.1 L (25-47) % Elk % (Auto) 4.1 (0-7) % Eos % (Auto) 0.7 (0-6) % Baso % (Auto) 0.3 (0-2) % Absolute Neuts (auto) 14.7 H (1.5-7.7) 10^3/ul Absolute Lymphs (auto) 1.0 (1.0-4.8) 10^3/ul Absolute Monos (auto) 0.7 (0-0.8) 10^3/ul Absolute Eos (auto) 0.1 (0-0.6) 10^3/ul Absolute Basos (auto) 0 (0-0.2) 10^3/ul Absolute Nucleated RBC 0 10^3/ul Nucleated RBC % 0 INR (Anticoag Therapy) (0.77-1.02) APTT (26.0-36.3) seconds Sodium (139-145) mmol/L Potassium (3.5-5.0) mmol/L Chloride (101-111) mmol/L Carbon Dioxide (22-32) mmol/L Anion Gap (2-11) mmol/L BUN (6-24) mg/dL Creatinine (0.67-1.17) mg/dL Est GFR ( Amer) (>60) Est GFR (Non-Af Amer) (>60) BUN/Creatinine Ratio (8-20) Glucose (70-100) mg/dL Lactic Acid 1.5 (0.5-2.0) mmol/L Calcium (8.6-10.3) mg/dL Total Bilirubin (0.2-1.0) mg/dL AST (13-39) U/L ALT (7-52) U/L Alkaline Phosphatase (34-104) U/L Troponin I (<0.04) ng/mL C-Reactive Protein (< 5.00) mg/L B-Natriuretic Peptide ( - 100) pg/mL Total Protein (6.4-8.9) g/dL Albumin (3.2-5.2) g/dL Globulin (2-4) g/dL Albumin/Globulin Ratio (1-3) Procalcitonin 0.5 (<0.6) ng/mL Influenza A (Rapid) (Negative) Influenza B (Rapid) (Negative) 06/27/17 Range/Units 15:28 WBC (3.5-10.8) 10^3/ul RBC (4.0-5.4) 10^6/ul Hgb (14.0-18.0) g/dl Hct (42-52) % MCV (80-94) fL MCH (27-31) pg MCHC (31-36) g/dl RDW (10.5-15) % Plt Count (150-450) 10^3/ul MPV (7.4-10.4) um3 Neut % (Auto) (38-83) % Lymph % (Auto) (25-47) % Elk % (Auto) (0-7) % Eos % (Auto) (0-6) % Baso % (Auto) (0-2) % Absolute Neuts (auto) (1.5-7.7) 10^3/ul Absolute Lymphs (auto) (1.0-4.8) 10^3/ul Absolute Monos (auto) (0-0.8) 10^3/ul Absolute Eos (auto) (0-0.6) 10^3/ul Absolute Basos (auto) (0-0.2) 10^3/ul Absolute Nucleated RBC 10^3/ul Nucleated RBC % INR (Anticoag Therapy) (0.77-1.02) APTT (26.0-36.3) seconds Sodium (139-145) mmol/L Potassium (3.5-5.0) mmol/L Chloride (101-111) mmol/L Carbon Dioxide (22-32) mmol/L Anion Gap (2-11) mmol/L BUN (6-24) mg/dL Creatinine (0.67-1.17) mg/dL Est GFR ( Amer) (>60) Est GFR (Non-Af Amer) (>60) BUN/Creatinine Ratio (8-20) Glucose (70-100) mg/dL Lactic Acid (0.5-2.0) mmol/L Calcium (8.6-10.3) mg/dL Total Bilirubin (0.2-1.0) mg/dL AST (13-39) U/L ALT (7-52) U/L Alkaline Phosphatase (34-104) U/L Troponin I (<0.04) ng/mL C-Reactive Protein (< 5.00) mg/L B-Natriuretic Peptide ( - 100) pg/mL Total Protein (6.4-8.9) g/dL Albumin (3.2-5.2) g/dL Globulin (2-4) g/dL Albumin/Globulin Ratio (1-3) Procalcitonin (<0.6) ng/mL Influenza A (Rapid) Negative (Negative) Influenza B (Rapid) Negative (Negative) Assess/Plan/Problems-Billing Mr Benjamin is a 76 yo M who has a h/o COPD, JULIANE (CPAP), CAD, chronic diastolic dysfunction, HTN, HLD, LE lymphedema and hypothyroidism who presented to the ER with sudden weakness and high fever and was found to be in severe sepsis secondary to possibly a skin source. - Patient Problems (1) Gram-negative bacteremia Current Visit: Yes Status: Acute Code(s): R78.81 - BACTEREMIA SNOMED Code( s): 152665885118 Comment: Likely source is the R LE. Blood cultures are growing pseudomonas mendocina. Message left for Dr. Lozano to call me to discuss antibiotics. (2) Morbid obesity Current Visit: No Status: Chronic Code(s): E66.01 - MORBID (SEVERE) OBESITY DUE TO EXCESS CALORIES SNOMED Code(s): 067410044 Comment: - BMI 48.0 (3) CKD (chronic kidney disease) Current Visit: Yes Status: Chronic Code(s): N18.9 - CHRONIC KIDNEY DISEASE, UNSPECIFIED SNOMED Code(s): 478577547 Comment: Resolved, 07/01. (4) CAD (coronary artery disease) Current Visit: Yes Status: Chronic Code(s): I25.10 - ATHSCL HEART DISEASE OF [place] CORONARY ARTERY W/O ANG PCTRS SNOMED Code(s): 58007500 Comment: No cardiac complaints. Will continue metoprolol, aspirin and statin. (5) COPD (chronic obstructive pulmonary disease) Current Visit: Yes Status: Chronic Code(s): J44.9 - CHRONIC OBSTRUCTIVE PULMONARY DISEASE, UNSPECIFIED SNOMED Code(s): 25533413 Comment: No signs of exacerbation. Continue atrovent and albuterol nebs as needed. Status and Disposition: If no needs identified by PT by AM
[2017-07-01] MEDS: Aspirin 81 mg CHEW TAB* 81 MG TAB.CHEW PO SCH (18:23)
[2017-07-02] MEDS ORDERED: cefTRIAXone(*) 2 GM in NS 0.9% 100 ML* 100 ML IVPB SCH (03:00)
[2017-07-02] MEDS: Levothyroxine TAB* 100 MCG TAB PO SCH (05:38)
[2017-07-02] MEDS: Heparin VIAL(*) 5000 UNITS/ML VIAL (FIVE THOUSAND) SUBCUT SCH ×2 (05:38→14:53)
[2017-07-02] MEDS: Acetaminophen TAB* 325 MG PO PRN (05:38)
[2017-07-02] MEDS: Metoprolol Succinate XL TAB* 50 MG PO SCH (08:42)
[2017-07-02] MEDS: Atorvastatin* 80 MG TAB PO SCH (08:42)
[2017-07-02] MEDS: Nystatin TOP POWDER* 15 GM BTL TOPICAL SCH (08:43)
[2017-07-02] MEDS: Aspirin 81 mg CHEW TAB* 81 MG TAB.CHEW PO SCH (08:43)
--- NOTE | 2017-07-02 10:17 | PN ---
Progress Note - Progress Note Date of Service: 07/02/17 SOAP: Subjective: CC: wound infection HPI: 76 year old man with bilateral lower extremity lymphedema and right leg wound with sepsis. Fatigue and appetite improving. Diarrhea resolved. No pain. Objective: Vital Signs Temp 36.2 C 07/02/17 07:47 Pulse 65 07/02/17 08:35 Resp 26 07/02/17 08:35 BP 142/57 07/02/17 08:35 Pulse Ox 96 07/02/17 08:35 Intake & Output 07/01/17 07/02/17 07/02/17 18:59 06:59 18:59 Intake Total 1352 135 Output Total 500 415 100 Balance 852 -280 -100 Intake: IV Fluids 30 110 NS (0.9%) 30 rocephin 110 IVPB 52 ABX - CEFEPIME 52 Oral 1270 25 Output: Urine 500 415 100 Other: Estimated Void Medium # Bowel Movements 1 1 Estimated Stool Amount Medium Medium # Voids 1 Gen:awake, no distress HEENT:no thrush Heart:RRR no murmur Lungs:CTA BL Abd:+BS NTND soft Skin: no rash MSK: BL LE non pitting edema; anterior lower leg wound surrounding no erythema Assessment: 1. Pseuodomanas bacteremia due to wound infection 2. sepsis, present on admission, resolved 3. lymphedema, BL LE 4. morbid obesity Plan: 1. cipro 500 mg po twice daily for 10 days and fu with me 1-2 weeks.
--- NOTE | 2017-07-02 14:25 | PN ---
Progress Note - Progress Note Date of Service: 07/02/17 Note: Time spent on discharge 45 minutes.
[2017-07-02 19:56] VITALS: BP 145/62
[2017-07-02] MEDS ORDERED: Ciprofloxacin TAB* 500 MG PO SCH (21:00)
--- NOTE | 2017-07-02 21:46 | DS ---
CC: Dr. Fong; Dr. Lozano* DISCHARGE SUMMARY: DATE OF ADMISSION: 06/27/17 DATE OF DISCHARGE: 07/02/17 HISTORY: This 76-year-old man presented with weakness, shortness of breath, malaise. The ambulance was called. He had a temperature of 103 and was tachycardic. He was felt to be septic in the emergency room and was admitted to the intensive care unit by Dr. Breaux. Initially, he was treated with piperacillin/tazobactam and vancomycin. Both sets of blood cultures grew out Pseudomonas mendocina in the aerobic bottles. This is an unusual organism which is resistant to cefazolin, but sensitive to ceftriaxone, quinolones, gentamicin, meropenem, tetracycline, trimethoprim-sulfamethoxazole. Dr. Lozano saw him in consultation. He would like him to have 10 days of Cipro as an outpatient 500 mg b.i.d. and he will follow up with him. We did not give him any of his diuretics or his amlodipine. DISCHARGE DIAGNOSES: 1. Pseudomonas mendocina bacteremia. 2. Morbid obesity. 3. Chronic kidney disease, improved after diuretics stopped. 4. Coronary artery disease. 5. Chronic obstructive pulmonary disease. DISCHARGE MEDICATIONS: 1. Levothyroxine 200 mcg 5 days a week and 300 mcg 2 days a week. 2. Ciprofloxacin 500 mg every 12 hours for 10 days. 3. Rosuvastatin 40 mg daily. 4. Potassium chloride 20 mEq daily. 5. Metoprolol succinate 50 mg daily. 6. Ipratropium 0.5 mg by nebulizer every 6 hours p.r.n. 7. Gabapentin 300 mg h.s. 8. Albuterol inhaler 2 puffs every 4 hours p.r.n. 9. Aspirin 81 mg daily. 10. Umeclidinium 62.5 two inhalations daily. [id number]/[facility] #: [id number] [facility]
== END 2017-07-02 18:30 | disposition home health service (06) | DRG 871 ==
LOC: ED 13:39 → MEDTELE 16:41
PROVIDERS: ADMIT Internal Medicine Critical Care Medicine; ATTEND Internal Medicine
PROC: 5A09357 Assistance with Respiratory Ventilation, Less than 24 Consecutive Hours, Continuous Positive Airway Pressure (ICD-10-PCS; principal; 2017-06-27)
DX: A41.52 Sepsis due to Pseudomonas (principal); R65.21 Severe sepsis with septic shock; J96.01 Acute respiratory failure with hypoxia; I13.0 Hypertensive heart and chronic kidney disease with heart failure and stage 1 through stage 4 chronic kidney disease, or unspecified chronic kidney disease; I50.32 Chronic diastolic (congestive) heart failure; L03.115 Cellulitis of right lower limb; Z68.42 Body mass index [BMI] 45.0-49.9, adult; I25.10 Atherosclerotic heart disease of native coronary artery without angina pectoris; J44.9 Chronic obstructive pulmonary disease, unspecified; M19.90 Unspecified osteoarthritis, unspecified site; E66.01 Morbid (severe) obesity due to excess calories; G47.33 Obstructive sleep apnea (adult) (pediatric); E03.9 Hypothyroidism, unspecified; N18.9 Chronic kidney disease, unspecified; S80.921A Unspecified superficial injury of right lower leg, initial encounter; B96.5 Pseudomonas (aeruginosa) (mallei) (pseudomallei) as the cause of diseases classified elsewhere; X58.XXXA Exposure to other specified factors, initial encounter; Y92.9 Unspecified place or not applicable; D69.6 Thrombocytopenia, unspecified; E78.5 Hyperlipidemia, unspecified; Z88.5 Allergy status to narcotic agent; Z86.718 Personal history of other venous thrombosis and embolism; Z87.442 Personal history of urinary calculi; Z95.5 Presence of coronary angioplasty implant and graft; Z95.1 Presence of aortocoronary bypass graft; Z82.49 Family history of ischemic heart disease and other diseases of the circulatory system; Z80.0 Family history of malignant neoplasm of digestive organs; Z79.82 Long term (current) use of aspirin; R19.7 Diarrhea, unspecified
CPT/HCPCS: 36415; 71045; 71046; 74176; 80048; 80053; 80202; 81003; 82272; 83605; 83880; 84145; 84484; 85025; 85027; 85610; 85730; 86140; 87040; 87077; 87186; 87205; 87502; 93005; 94640; 94760; 99284; A9270-GY; G8978-GP-CI; G8978-GP-CJ; G8979-GP-CI; G8980-GP-CI; J0692; J0696; J1644; J2543; J3370